=== PATIENT | male | born 1980 | race African-American/Black ===

== ENCOUNTER 2024-03-23 12:04 | Inpatient (IN) | payer OTHER ==
[~2024-03-23] VITALS: Ht 177.8 cm; Wt 154.2 kg
[2024-03-23] VITALS (10 sets, daily range): BP systolic 33–102; BP diastolic 19–78; PULSE 80–109; RESP 17–32; TEMP 36.6; O2SAT 95–100
[~2024-03-23 12:04] MED LIST: ACET-2708 PO; BUPR200T8 MT; CYCL10TA21 PO; DILT30TA37 PO; GABA-1180 PO; LEVO-65 MT; METF-414 MT; METH4TAB95 MT; VITA250012 PO
[2024-03-23 13:51] LABS: BASOPHILS % 0.3 % (0.0-2.0); EOSINOPHILS % 2.7 % (0.0-5.0); HEMATOCRIT. 30.7 % (42.0-52.0); HEMOGLOBIN. 9.3 g/dL (14.0-18.0); LYMPHOCYTES % 15.3 % (20.0-50.0); MEAN PLATELET VOLUME 8.1 fl (7.4-10.4); MONOCYTES % 7.0 % (2.0-8.0); NEUTROPHILS % 74.7 % (40.0-76.0); PLATELET 329 x1000/uL (130-400); RED BLOOD CELL COUNT 4.26 mill/uL (4.7-6.1); RED CELL DISTRIBUTION WIDTH 21.4 % (11.6-14.6)
[2024-03-23 14:00] LABS: INR 1.1
[2024-03-23 14:05] LABS: CREATININE 0.8 mg/dL (0.6-1.3); TROPONIN I HIGH SENSITIVITY 4 ng/L (3.0-53); UREA NITROGEN BLOOD 6 mg/dL (9-23)
[2024-03-23 14:07] LABS: BILIRUBIN DIRECT 0.1 mg/dL (<=3.0); BILIRUBIN TOTAL 0.4 mg/dL (0.1-1.0); PROTEIN TOTAL 8.6 g/dL (6.0-8.3)
[2024-03-23 14:09] LABS: ASPARTATE AMINOTRANSFERASE < 8 IU/L (<34)
[2024-03-23] MEDS: MORPHINE SULFATE 4 MG/ML INJ (FOR IV/IM USE) IV STA (14:21)
[2024-03-23] MEDS: ONDANSETRON HCL 4MG/2ML INJ IV STA (14:26)
[2024-03-23] MEDS: PIPERACILLIN/TAZO 3.375G/50ML 50 ML IV STA (14:33)
[2024-03-23] MEDS: FUROSEMIDE 40MG/4ML VIAL IVP ONE (15:20)
[2024-03-23] MEDS: VANCOMYCIN 1GM/200ML PMX (BAXTER) IV SCH (15:24)
[2024-03-23 16:13] LABS: BG BASE EXCESS 7.3 mmol/L (-2.0-3.0); BG CARBOXYHEMOGLOBIN 1.6 % (0.5-1.5); BG DEOXYHEMOGLOBIN 16.7 % (0.0-5.0); BG FLOW(L/min) 4.00 L/min; BG FRACTION INSPIRED OXYGEN 36; BG HCO3 ACT 36.1 mmol/L (21.0-28.0); BG METHEMOGLOBIN 0.0 % (0.5-1.5); BG OXYGEN SATURATION 83.0 % (94.0-98.0); BG OXYHEMOGLOBIN 81.7 % (94.0-98.0); BG PCO2 77.4 mmHg (35.0-48.0); BG PH 7.287 (7.350-7.450); BG PO2 53.1 mmHg (83.0-108.0); BG SAMPLE SITE RIGHT RADIAL; BG TOTAL HEMOGLOBIN 11.1 g/dL (13.5-17.5); BG VENT MODE MASK - NRB
[2024-03-23] MEDS ORDERED: ONDANSETRON HCL 4MG/2ML INJ IV PRN (17:15)
[2024-03-23] MEDS ORDERED: IPRATROPIUM/ALBUTEROL 0.5-3(2.5)MG/3ML NEB HHN SCH (18:00)
[2024-03-23] MEDS: SUCCINYLCHOLINE CHLORIDE 200MG/10ML IV ONE (19:40)
[2024-03-23] MEDS ORDERED: IPRATROPIUM/ALBUTEROL 0.5-3(2.5)MG/3ML NEB NEB PRN (20:00)
[2024-03-23] MEDS ORDERED: VASOPRESSIN 20 UNIT in SODIUM CHLORIDE 0.9% 99 ML IV PRN (20:30)
[2024-03-23] MEDS ORDERED: PHENYLEPHRINE 50MG/250ML PMX 250 ML IV PRN (20:30)
[2024-03-23] MEDS ORDERED: NOREPINEPHRINE 8MG/250ML PMX 250 ML IV PRN (20:30)
[2024-03-23] MEDS: FUROSEMIDE 40MG/4ML VIAL IVP SCH (20:56)
[2024-03-23] MEDS: PROPOFOL 10MG/ML 100ML 100 ML IV ONE (21:05)
[2024-03-23 21:13] LABS: BG BASE EXCESS -0.5 mmol/L (-2.0-3.0); BG CARBOXYHEMOGLOBIN 1.9 % (0.5-1.5); BG DEOXYHEMOGLOBIN 9.7 % (0.0-5.0); BG FRACTION INSPIRED OXYGEN 100; BG HCO3 ACT 33.0 mmol/L (21.0-28.0); BG METHEMOGLOBIN 0.1 % (0.5-1.5); BG OXYGEN SATURATION 90.1 % (94.0-98.0); BG OXYHEMOGLOBIN 88.3 % (94.0-98.0); BG PCO2 124.6 mmHg (35.0-48.0); BG PEEP (cmH2O) 10.0 cmH2O; BG PH 7.041 (7.350-7.450); BG PO2 74.8 mmHg (83.0-108.0); BG SAMPLE SITE RIGHT RADIAL; BG TIDAL VOLUME(mL) 500.0 mL; BG TOTAL HEMOGLOBIN 11.7 g/dL (13.5-17.5); BG VENT MODE VENT - AC; BG VENT RATE 22.0 set
[2024-03-23 23:24] LABS: BG BASE EXCESS 3.9 mmol/L (-2.0-3.0); BG CARBOXYHEMOGLOBIN 1.2 % (0.5-1.5); BG DEOXYHEMOGLOBIN 6.9 % (0.0-5.0); BG FRACTION INSPIRED OXYGEN 100; BG HCO3 ACT 34.4 mmol/L (21.0-28.0); BG METHEMOGLOBIN 0.1 % (0.5-1.5); BG OXYGEN SATURATION 93.0 % (94.0-98.0); BG OXYHEMOGLOBIN 91.8 % (94.0-98.0); BG PCO2 93.3 mmHg (35.0-48.0); BG PEEP (cmH2O) 5.0 cmH2O; BG PH 7.185 (7.350-7.450); BG PO2 74.9 mmHg (83.0-108.0); BG SAMPLE SITE LEFT RADIAL; BG TIDAL VOLUME(mL) 500.0 mL; BG TOTAL HEMOGLOBIN 11.0 g/dL (13.5-17.5); BG VENT MODE VENT - AC; BG VENT RATE 26.0 set
[2024-03-24] VITALS (79 sets, daily range): BP systolic 68–135; BP diastolic 49–107; PULSE 78–112; RESP 13–33; TEMP 32.1–37.1; O2SAT 95–100
[2024-03-24] MEDS: PROPOFOL 10MG/ML 100ML 100 ML IV SCH (00:06)
[2024-03-24] MEDS: NOREPINEPHRINE 8MG/250ML PMX 250 ML IV PRN (00:06)
[2024-03-24] MEDS: IPRATROPIUM/ALBUTEROL 0.5-3(2.5)MG/3ML NEB NEB SCH (01:48)
[2024-03-24] MEDS: MIDAZOLAM 100MG/100ML PMX 100 ML IV PRN (04:23)
[2024-03-24 06:13] LABS: CREATININE 1.1 mg/dL (0.6-1.3); UREA NITROGEN BLOOD 8 mg/dL (9-23)
[2024-03-24] MEDS: ENOXAPARIN 40MG/0.4ML SYR SUBCUT SCH (09:00)
[2024-03-24 10:36] LABS: BG BASE EXCESS 9.5 mmol/L (-2.0-3.0); BG CARBOXYHEMOGLOBIN 1.2 % (0.5-1.5); BG DEOXYHEMOGLOBIN 1.6 % (0.0-5.0); BG FRACTION INSPIRED OXYGEN 100; BG HCO3 ACT 35.9 mmol/L (21.0-28.0); BG METHEMOGLOBIN 0.3 % (0.5-1.5); BG OXYGEN SATURATION 98.4 % (94.0-98.0); BG OXYHEMOGLOBIN 96.9 % (94.0-98.0); BG PCO2 58.7 mmHg (35.0-48.0); BG PEEP (cmH2O) 5.0 cmH2O; BG PH 7.404 (7.350-7.450); BG PO2 108.6 mmHg (83.0-108.0); BG SAMPLE SITE RIGHT RADIAL; BG TIDAL VOLUME(mL) 500.0 mL; BG TOTAL HEMOGLOBIN 10.6 g/dL (13.5-17.5); BG VENT MODE VENT - AC; BG VENT RATE 26.0 set
[2024-03-24] MEDS: PANTOPRAZOLE SODIUM 40 MG/VIAL IV SCH (11:00)
[2024-03-24] MEDS ORDERED: LIDOCAINE HCL 1% 10 MG/ML 10ML VIAL ONE (13:07)
[2024-03-25] VITALS (94 sets, daily range): BP systolic 111–143; BP diastolic 51–113; PULSE 99–126; RESP 20–38; TEMP 36.7–36.9; O2SAT 90–100
[2024-03-25] MEDS: PROPOFOL 10MG/ML 100ML 100 ML IV PRN (00:15)
[2024-03-25] MEDS ORDERED: DEXTROSE 50% WATER 50ML SYRINGE IV PRN (00:15)
[2024-03-25 07:13] LABS: CREATININE 0.8 mg/dL (0.6-1.3)
[2024-03-25 07:15] LABS: UREA NITROGEN BLOOD 8 mg/dL (9-23)
[2024-03-25 07:26] LABS: BASOPHILS % 0.2 % (0.0-2.0); EOSINOPHILS % 2.1 % (0.0-5.0); HEMATOCRIT. 31.3 % (42.0-52.0); HEMOGLOBIN. 9.7 g/dL (14.0-18.0); LYMPHOCYTES % 11.6 % (20.0-50.0); MEAN PLATELET VOLUME 8.2 fl (7.4-10.4); MONOCYTES % 7.4 % (2.0-8.0); NEUTROPHILS % 78.7 % (40.0-76.0); PLATELET 320 x1000/uL (130-400); RED BLOOD CELL COUNT 4.46 mill/uL (4.7-6.1); RED CELL DISTRIBUTION WIDTH 21.1 % (11.6-14.6)
[2024-03-25] MEDS: BLOOD SUGAR DIAGNOSTIC STRIP TEST SCH (07:36)
[2024-03-25] MEDS: INSULIN LISPRO 100 UNITS/ML SUBCUT SCH (07:36)
[2024-03-25 11:14] LABS: BG BASE EXCESS 13.4 mmol/L (-2.0-3.0); BG CARBOXYHEMOGLOBIN 1.0 % (0.5-1.5); BG DEOXYHEMOGLOBIN 5.2 % (0.0-5.0); BG FRACTION INSPIRED OXYGEN 80; BG HCO3 ACT 39.9 mmol/L (21.0-28.0); BG METHEMOGLOBIN 0.0 % (0.5-1.5); BG OXYGEN SATURATION 94.7 % (94.0-98.0); BG OXYHEMOGLOBIN 93.8 % (94.0-98.0); BG PCO2 61.0 mmHg (35.0-48.0); BG PEEP (cmH2O) 5.0 cmH2O; BG PH 7.433 (7.350-7.450); BG PO2 74.4 mmHg (83.0-108.0); BG SAMPLE SITE RIGHT RADIAL; BG TIDAL VOLUME(mL) 500.0 mL; BG TOTAL HEMOGLOBIN 10.8 g/dL (13.5-17.5); BG VENT MODE VENT - AC; BG VENT RATE 26.0 set
[2024-03-25] MEDS: FENTANYL CITRATE/PF 1,000 MCG in DEXT 5% WATER 80 ML IV PRN (12:12)
[2024-03-26] VITALS (100 sets, daily range): BP systolic 98–144; BP diastolic 54–98; PULSE 101–116; RESP 21–37; TEMP 36.3–36.9; O2SAT 85–100
[2024-03-26] MEDS: PROPOFOL 10MG/ML 100ML 100 ML IV PRN (01:23)
[2024-03-26 06:13] LABS: CREATININE 0.9 mg/dL (0.6-1.3); UREA NITROGEN BLOOD 8 mg/dL (9-23)
[2024-03-26 09:04] LABS: BASOPHILS % 0.5 % (0.0-2.0); EOSINOPHILS % 4.1 % (0.0-5.0); HEMATOCRIT. 34.8 % (42.0-52.0); HEMOGLOBIN. 10.7 g/dL (14.0-18.0); LYMPHOCYTES % 16.1 % (20.0-50.0); MEAN PLATELET VOLUME 8.5 fl (7.4-10.4); MONOCYTES % 10.8 % (2.0-8.0); NEUTROPHILS % 68.5 % (40.0-76.0); PLATELET 314 x1000/uL (130-400); RED BLOOD CELL COUNT 4.89 mill/uL (4.7-6.1); RED CELL DISTRIBUTION WIDTH 21.5 % (11.6-14.6)
[2024-03-26 09:11] LABS: ADD RBC MORPHOLOGY YES
[2024-03-26] MEDS: LIDOCAINE HCL 1% 10 MG/ML 10ML VIAL ONE (09:43)
[2024-03-26 10:49] LABS: BG BASE EXCESS 12.7 mmol/L (-2.0-3.0); BG CARBOXYHEMOGLOBIN 0.9 % (0.5-1.5); BG DEOXYHEMOGLOBIN 6.3 % (0.0-5.0); BG FRACTION INSPIRED OXYGEN 80; BG HCO3 ACT 39.1 mmol/L (21.0-28.0); BG METHEMOGLOBIN 0.3 % (0.5-1.5); BG OXYGEN SATURATION 93.6 % (94.0-98.0); BG OXYHEMOGLOBIN 92.5 % (94.0-98.0); BG PCO2 60.4 mmHg (35.0-48.0); BG PEEP (cmH2O) 5.0 cmH2O; BG PH 7.429 (7.350-7.450); BG PO2 72.8 mmHg (83.0-108.0); BG SAMPLE SITE RIGHT RADIAL; BG TIDAL VOLUME(mL) 500.0 mL; BG TOTAL HEMOGLOBIN 10.9 g/dL (13.5-17.5); BG VENT MODE VENT - AC; BG VENT RATE 26.0 set
[2024-03-26] MEDS: PIPERACILLIN/TAZO 3.375G/50ML 50 ML IV SCH (16:08)
[2024-03-26 18:08] LABS: PLATELET ESTIMATE NORMAL
[2024-03-26] MEDS ORDERED: PIPERACILLIN/TAZO 3.375G/100ML 100 ML IV SCH (22:00)
[2024-03-27] VITALS (92 sets, daily range): BP systolic 106–148; BP diastolic 60–94; PULSE 100–120; RESP 18–30; TEMP 36.4–37.1; O2SAT 85–100
[2024-03-27] MEDS: PROPOFOL 10MG/ML 100ML 100 ML IV PRN (01:00)
[2024-03-27 06:26] LABS: CREATININE 0.9 mg/dL (0.6-1.3); TRIGLYCERIDE 201 mg/dL (0-150)
[2024-03-27 06:27] LABS: UREA NITROGEN BLOOD 11 mg/dL (9-23)
[2024-03-27 09:05] LABS: BASOPHILS % 0.8 % (0.0-2.0); EOSINOPHILS % 2.8 % (0.0-5.0); HEMATOCRIT. 34.1 % (42.0-52.0); HEMOGLOBIN. 10.4 g/dL (14.0-18.0); LYMPHOCYTES % 12.9 % (20.0-50.0); MEAN PLATELET VOLUME 8.3 fl (7.4-10.4); MONOCYTES % 9.0 % (2.0-8.0); NEUTROPHILS % 74.5 % (40.0-76.0); PLATELET 333 x1000/uL (130-400); RED BLOOD CELL COUNT 4.83 mill/uL (4.7-6.1); RED CELL DISTRIBUTION WIDTH 21.7 % (11.6-14.6)
[2024-03-27 09:24] LABS: BG BASE EXCESS 13.1 mmol/L (-2.0-3.0); BG CARBOXYHEMOGLOBIN 1.2 % (0.5-1.5); BG DEOXYHEMOGLOBIN 1.3 % (0.0-5.0); BG FRACTION INSPIRED OXYGEN 80; BG HCO3 ACT 39.3 mmol/L (21.0-28.0); BG METHEMOGLOBIN 0.3 % (0.5-1.5); BG OXYGEN SATURATION 98.7 % (94.0-98.0); BG OXYHEMOGLOBIN 97.2 % (94.0-98.0); BG PCO2 60.5 mmHg (35.0-48.0); BG PEEP (cmH2O) 14.0 cmH2O; BG PH 7.431 (7.350-7.450); BG PO2 119.8 mmHg (83.0-108.0); BG SAMPLE SITE RIGHT RADIAL; BG TIDAL VOLUME(mL) 500.0 mL; BG TOTAL HEMOGLOBIN 10.2 g/dL (13.5-17.5); BG VENT MODE VENT - AC; BG VENT RATE 26.0 set
[2024-03-28] VITALS (100 sets, daily range): BP systolic 98–146; BP diastolic 55–94; PULSE 100–126; RESP 20–32; TEMP 36.8–37.1; O2SAT 85–99
[2024-03-28] MEDS: PROPOFOL 10MG/ML 100ML 100 ML IV PRN ×2 (00:12→22:59)
[2024-03-28 10:36] LABS: BG BASE EXCESS 11.2 mmol/L (-2.0-3.0); BG CARBOXYHEMOGLOBIN 1.0 % (0.5-1.5); BG DEOXYHEMOGLOBIN 13.6 % (0.0-5.0); BG FRACTION INSPIRED OXYGEN 50; BG HCO3 ACT 37.4 mmol/L (21.0-28.0); BG METHEMOGLOBIN 0.3 % (0.5-1.5); BG OXYGEN SATURATION 86.2 % (94.0-98.0); BG OXYHEMOGLOBIN 85.1 % (94.0-98.0); BG PCO2 57.8 mmHg (35.0-48.0); BG PEEP (cmH2O) 5.0 cmH2O; BG PH 7.429 (7.350-7.450); BG PO2 55.1 mmHg (83.0-108.0); BG SAMPLE SITE RIGHT RADIAL; BG TIDAL VOLUME(mL) 500.0 mL; BG TOTAL HEMOGLOBIN 11.5 g/dL (13.5-17.5); BG VENT MODE VENT - AC; BG VENT RATE 26.0 set
[2024-03-28 13:20] LABS: BG BASE EXCESS 14.4 mmol/L (-2.0-3.0); BG CARBOXYHEMOGLOBIN 1.4 % (0.5-1.5); BG DEOXYHEMOGLOBIN 13.3 % (0.0-5.0); BG FRACTION INSPIRED OXYGEN 50; BG HCO3 ACT 41.6 mmol/L (21.0-28.0); BG METHEMOGLOBIN 0.3 % (0.5-1.5); BG OXYGEN SATURATION 86.5 % (94.0-98.0); BG OXYHEMOGLOBIN 85.0 % (94.0-98.0); BG PCO2 66.4 mmHg (35.0-48.0); BG PEEP (cmH2O) 5.0 cmH2O; BG PH 7.415 (7.350-7.450); BG PO2 54.5 mmHg (83.0-108.0); BG SAMPLE SITE RIGHT RADIAL; BG TIDAL VOLUME(mL) 500.0 mL; BG TOTAL HEMOGLOBIN 11.6 g/dL (13.5-17.5); BG TOTAL RESPIRATORY RATE 24 b/min; BG VENT MODE VENT - AC; BG VENT RATE 24.0 set
[2024-03-28 18:10] LABS: BASOPHILS % 0.5 % (0.0-2.0); EOSINOPHILS % 4.1 % (0.0-5.0); HEMATOCRIT. 34.4 % (42.0-52.0); HEMOGLOBIN. 10.4 g/dL (14.0-18.0); LYMPHOCYTES % 12.4 % (20.0-50.0); MEAN PLATELET VOLUME 8.1 fl (7.4-10.4); MONOCYTES % 9.6 % (2.0-8.0); NEUTROPHILS % 73.4 % (40.0-76.0); PLATELET 348 x1000/uL (130-400); RED BLOOD CELL COUNT 4.88 mill/uL (4.7-6.1); RED CELL DISTRIBUTION WIDTH 21.4 % (11.6-14.6)
[2024-03-28 18:22] LABS: CREATININE 1.1 mg/dL (0.6-1.3); UREA NITROGEN BLOOD 14 mg/dL (9-23)
[2024-03-29] VITALS (102 sets, daily range): BP systolic 94–140; BP diastolic 51–80; PULSE 109–126; RESP 16–25; TEMP 37.4–38.6; O2SAT 87–100
[2024-03-29] MEDS: ACETAMINOPHEN 650MG/20.3ML UDC PO PRN (03:48)
[2024-03-29 05:59] LABS: BASOPHILS % 0.4 % (0.0-2.0); EOSINOPHILS % 4.8 % (0.0-5.0); HEMATOCRIT. 34.3 % (42.0-52.0); HEMOGLOBIN. 10.3 g/dL (14.0-18.0); LYMPHOCYTES % 14.1 % (20.0-50.0); MEAN PLATELET VOLUME 8.3 fl (7.4-10.4); MONOCYTES % 12.6 % (2.0-8.0); NEUTROPHILS % 68.1 % (40.0-76.0); PLATELET 323 x1000/uL (130-400); RED BLOOD CELL COUNT 4.85 mill/uL (4.7-6.1); RED CELL DISTRIBUTION WIDTH 20.8 % (11.6-14.6)
[2024-03-29 06:31] LABS: CREATININE 1.1 mg/dL (0.6-1.3)
[2024-03-29 06:32] LABS: TRIGLYCERIDE 210 mg/dL (0-150); UREA NITROGEN BLOOD 17 mg/dL (9-23)
[2024-03-29 09:11] LABS: BG BASE EXCESS 15.9 mmol/L (-2.0-3.0); BG CARBOXYHEMOGLOBIN 1.3 % (0.5-1.5); BG DEOXYHEMOGLOBIN 7.6 % (0.0-5.0); BG FRACTION INSPIRED OXYGEN 50; BG HCO3 ACT 42.3 mmol/L (21.0-28.0); BG METHEMOGLOBIN 0.3 % (0.5-1.5); BG OXYGEN SATURATION 92.3 % (94.0-98.0); BG OXYHEMOGLOBIN 90.8 % (94.0-98.0); BG PCO2 61.2 mmHg (35.0-48.0); BG PEEP (cmH2O) 14.0 cmH2O; BG PH 7.457 (7.350-7.450); BG PO2 65.7 mmHg (83.0-108.0); BG SAMPLE SITE LEFT RADIAL; BG TIDAL VOLUME(mL) 600.0 mL; BG TOTAL HEMOGLOBIN 11.2 g/dL (13.5-17.5); BG TOTAL RESPIRATORY RATE 20 b/min; BG VENT MODE VENT - AC; BG VENT RATE 20.0 set
[2024-03-29] MEDS: KCL 20MEQ/100ML PREMIX 100 ML IV NR (11:24)
[2024-03-29] MEDS: MIDAZOLAM 100MG/100ML PMX 100 ML IV PRN (21:32)
[2024-03-30] VITALS (98 sets, daily range): BP systolic 109–130; BP diastolic 61–79; PULSE 103–125; RESP 16–21; TEMP 37.2–38.2; O2SAT 91–98
[2024-03-30] MEDS: PROPOFOL 10MG/ML 100ML 100 ML IV PRN (00:46)
[2024-03-30 06:15] LABS: CREATININE 1.1 mg/dL (0.6-1.3)
[2024-03-30 06:16] LABS: TRIGLYCERIDE 262 mg/dL (0-150); UREA NITROGEN BLOOD 19 mg/dL (9-23)
[2024-03-30 07:06] LABS: BASOPHILS % 0.5 % (0.0-2.0); EOSINOPHILS % 3.3 % (0.0-5.0); HEMATOCRIT. 33.3 % (42.0-52.0); HEMOGLOBIN. 10.2 g/dL (14.0-18.0); LYMPHOCYTES % 13.7 % (20.0-50.0); MEAN PLATELET VOLUME 8.3 fl (7.4-10.4); MONOCYTES % 9.7 % (2.0-8.0); NEUTROPHILS % 72.8 % (40.0-76.0); PLATELET 300 x1000/uL (130-400); RED BLOOD CELL COUNT 4.70 mill/uL (4.7-6.1); RED CELL DISTRIBUTION WIDTH 21.1 % (11.6-14.6)
[2024-03-30 09:37] LABS: BG BASE EXCESS 14.8 mmol/L (-2.0-3.0); BG CARBOXYHEMOGLOBIN 1.5 % (0.5-1.5); BG DEOXYHEMOGLOBIN 4.6 % (0.0-5.0); BG FRACTION INSPIRED OXYGEN 50; BG HCO3 ACT 40.7 mmol/L (21.0-28.0); BG METHEMOGLOBIN 0.3 % (0.5-1.5); BG OXYGEN SATURATION 95.3 % (94.0-98.0); BG OXYHEMOGLOBIN 93.6 % (94.0-98.0); BG PCO2 57.5 mmHg (35.0-48.0); BG PEEP (cmH2O) 14.0 cmH2O; BG PH 7.468 (7.350-7.450); BG PO2 76.3 mmHg (83.0-108.0); BG SAMPLE SITE RIGHT RADIAL; BG TIDAL VOLUME(mL) 600.0 mL; BG TOTAL HEMOGLOBIN 11.1 g/dL (13.5-17.5); BG VENT MODE VENT - AC; BG VENT RATE 20.0 set
[2024-03-30] MEDS ORDERED: FENTANYL 2500MCG/250ML PMX 250 ML IV ONE (10:15)
[2024-03-30] MEDS: FENTANYL CITRATE/PF 1,000 MCG in DEXT 5% WATER 80 ML IV ONE (10:46)
[2024-03-30] MEDS: KCL 20MEQ/100ML PREMIX 100 ML IV SCH (11:18)
[2024-03-30 13:24] LABS: BG BASE EXCESS 14.5 mmol/L (-2.0-3.0); BG CARBOXYHEMOGLOBIN 0.7 % (0.5-1.5); BG DEOXYHEMOGLOBIN 7.1 % (0.0-5.0); BG FRACTION INSPIRED OXYGEN 50; BG HCO3 ACT 40.9 mmol/L (21.0-28.0); BG METHEMOGLOBIN 0.3 % (0.5-1.5); BG OXYGEN SATURATION 92.8 % (94.0-98.0); BG OXYHEMOGLOBIN 91.9 % (94.0-98.0); BG PCO2 60.3 mmHg (35.0-48.0); BG PEEP (cmH2O) 14.0 cmH2O; BG PH 7.449 (7.350-7.450); BG PIP 20.0 cmH2O; BG PO2 70.0 mmHg (83.0-108.0); BG SAMPLE SITE RIGHT RADIAL; BG TIDAL VOLUME(mL) 600.0 mL; BG TOTAL HEMOGLOBIN 11.2 g/dL (13.5-17.5); BG VENT MODE VENT - AC; BG VENT RATE 18.0 set
[2024-03-30] MEDS: LACTULOSE 20G/30ML UDC PO NR (19:55)
[2024-03-30 22:53] LABS: BG BASE EXCESS 13.2 mmol/L (-2.0-3.0); BG CARBOXYHEMOGLOBIN 1.0 % (0.5-1.5); BG DEOXYHEMOGLOBIN 13.8 % (0.0-5.0); BG FRACTION INSPIRED OXYGEN 50; BG HCO3 ACT 39.9 mmol/L (21.0-28.0); BG METHEMOGLOBIN 0.0 % (0.5-1.5); BG OXYGEN SATURATION 86.1 % (94.0-98.0); BG OXYHEMOGLOBIN 85.2 % (94.0-98.0); BG PCO2 62.0 mmHg (35.0-48.0); BG PEEP (cmH2O) 14.0 cmH2O; BG PH 7.426 (7.350-7.450); BG PO2 55.6 mmHg (83.0-108.0); BG SAMPLE SITE RIGHT RADIAL; BG TIDAL VOLUME(mL) 600.0 mL; BG TOTAL HEMOGLOBIN 11.4 g/dL (13.5-17.5); BG VENT RATE 16.0 set
[2024-03-30] MEDS: BLOOD SUGAR DIAGNOSTIC STRIP TEST SCH (23:33)
[2024-03-30] MEDS: INSULIN LISPRO 100 UNITS/ML SUBCUT SCH (23:34)
[2024-03-31] VITALS (87 sets, daily range): BP systolic 111–141; BP diastolic 64–81; PULSE 106–126; RESP 16–50; TEMP 37.1–38; O2SAT 0–100
[2024-03-31 07:34] LABS: CREATININE 1.1 mg/dL (0.6-1.3); UREA NITROGEN BLOOD 23 mg/dL (9-23)
[2024-03-31 07:37] LABS: BASOPHILS % 0.5 % (0.0-2.0); EOSINOPHILS % 4.3 % (0.0-5.0); HEMATOCRIT. 33.7 % (42.0-52.0); HEMOGLOBIN. 10.1 g/dL (14.0-18.0); LYMPHOCYTES % 11.8 % (20.0-50.0); MEAN PLATELET VOLUME 8.3 fl (7.4-10.4); MONOCYTES % 11.8 % (2.0-8.0); NEUTROPHILS % 71.6 % (40.0-76.0); PLATELET 301 x1000/uL (130-400); RED BLOOD CELL COUNT 4.72 mill/uL (4.7-6.1); RED CELL DISTRIBUTION WIDTH 21.0 % (11.6-14.6)
[2024-03-31 08:45] LABS: BG BASE EXCESS 14.7 mmol/L (-2.0-3.0); BG CARBOXYHEMOGLOBIN 0.5 % (0.5-1.5); BG DEOXYHEMOGLOBIN 2.8 % (0.0-5.0); BG FRACTION INSPIRED OXYGEN 70; BG HCO3 ACT 42.2 mmol/L (21.0-28.0); BG METHEMOGLOBIN 0.1 % (0.5-1.5); BG OXYGEN SATURATION 97.2 % (94.0-98.0); BG OXYHEMOGLOBIN 96.6 % (94.0-98.0); BG PCO2 69.4 mmHg (35.0-48.0); BG PEEP (cmH2O) 14.0 cmH2O; BG PH 7.402 (7.350-7.450); BG PO2 98.8 mmHg (83.0-108.0); BG SAMPLE SITE RIGHT RADIAL; BG TIDAL VOLUME(mL) 600.0 mL; BG TOTAL HEMOGLOBIN 11.4 g/dL (13.5-17.5); BG VENT MODE VENT - AC; BG VENT RATE 16.0 set
[2024-03-31] MEDS ORDERED: PROPOFOL 10MG/ML 100ML 100 ML IV PRN (09:00)
[2024-03-31] MEDS: POTASSIUM CHLORIDE 20MEQ TABLET SR PO SCH (09:05)
[2024-03-31] MEDS: POTASSIUM CHLORIDE 20 MEQ in DEXT 5% WATER 100 ML IV SCH (13:43)
[2024-03-31] MEDS: FENTANYL CITRATE/PF 1,000 MCG in DEXT 5% WATER 80 ML IV PRN (16:16)
[2024-04-01] VITALS (81 sets, daily range): BP systolic 70–122; BP diastolic 45–87; PULSE 115–131; RESP 1–35; TEMP 37.8–39; O2SAT 92–100
[2024-04-01 06:58] LABS: BASOPHILS % 0.2 % (0.0-2.0); EOSINOPHILS % 2.0 % (0.0-5.0); HEMATOCRIT. 33.8 % (42.0-52.0); HEMOGLOBIN. 10.0 g/dL (14.0-18.0); LYMPHOCYTES % 9.1 % (20.0-50.0); MEAN PLATELET VOLUME 8.1 fl (7.4-10.4); MONOCYTES % 12.7 % (2.0-8.0); NEUTROPHILS % 76.0 % (40.0-76.0); PLATELET 290 x1000/uL (130-400); RED BLOOD CELL COUNT 4.67 mill/uL (4.7-6.1); RED CELL DISTRIBUTION WIDTH 21.1 % (11.6-14.6)
[2024-04-01 07:15] LABS: CREATININE 1.1 mg/dL (0.6-1.3)
[2024-04-01 07:16] LABS: UREA NITROGEN BLOOD 29 mg/dL (9-23)
[2024-04-01 09:13] LABS: BG BASE EXCESS 13.0 mmol/L (-2.0-3.0); BG CARBOXYHEMOGLOBIN 0.9 % (0.5-1.5); BG DEOXYHEMOGLOBIN 4.7 % (0.0-5.0); BG FRACTION INSPIRED OXYGEN 50; BG HCO3 ACT 40.4 mmol/L (21.0-28.0); BG METHEMOGLOBIN 0.1 % (0.5-1.5); BG OXYGEN SATURATION 95.3 % (94.0-98.0); BG OXYHEMOGLOBIN 94.3 % (94.0-98.0); BG PCO2 67.1 mmHg (35.0-48.0); BG PEEP (cmH2O) 14.0 cmH2O; BG PH 7.397 (7.350-7.450); BG PO2 79.9 mmHg (83.0-108.0); BG SAMPLE SITE LEFT RADIAL; BG TIDAL VOLUME(mL) 600.0 mL; BG TOTAL HEMOGLOBIN 11.3 g/dL (13.5-17.5); BG VENT MODE VENT - AC; BG VENT RATE 16.0 set
[2024-04-01] MEDS ORDERED: KCL 20MEQ/100ML PREMIX 100 ML IV ONE ×2 (09:45→18:00)
[2024-04-01] MEDS: DEXT 5% WATER 500 ML IV NR (10:22)
[2024-04-01] MEDS: POTASSIUM CHLORIDE 20MEQ in DEXT 5% WATER 100ML IV NR ×2 (11:56→17:35)
[2024-04-01] MEDS: MICAFUNGIN 100 MG in SODIUM CHLORIDE 0.9% 100 ML IV SCH (16:49)
[2024-04-01] MEDS: PIPERACILLIN/TAZO 3.375G/50ML 100 ML IV SCH (19:10)
[2024-04-02] VITALS (93 sets, daily range): BP systolic 84–115; BP diastolic 43–86; PULSE 104–131; RESP 16–25; TEMP 36.9–37.7; O2SAT 82–100
[2024-04-02 05:47] LABS: BASOPHILS % 0.3 % (0.0-2.0); EOSINOPHILS % 4.8 % (0.0-5.0); HEMATOCRIT. 31.6 % (42.0-52.0); HEMOGLOBIN. 9.3 g/dL (14.0-18.0); LYMPHOCYTES % 12.1 % (20.0-50.0); MEAN PLATELET VOLUME 8.5 fl (7.4-10.4); MONOCYTES % 10.9 % (2.0-8.0); NEUTROPHILS % 71.9 % (40.0-76.0); PLATELET 279 x1000/uL (130-400); RED BLOOD CELL COUNT 4.31 mill/uL (4.7-6.1); RED CELL DISTRIBUTION WIDTH 20.7 % (11.6-14.6)
[2024-04-02 06:06] LABS: CREATININE 1.1 mg/dL (0.6-1.3); UREA NITROGEN BLOOD 30 mg/dL (9-23)
[2024-04-02 08:47] LABS: BG BASE EXCESS 11.5 mmol/L (-2.0-3.0); BG CARBOXYHEMOGLOBIN 1.4 % (0.5-1.5); BG DEOXYHEMOGLOBIN 7.9 % (0.0-5.0); BG FRACTION INSPIRED OXYGEN 50; BG HCO3 ACT 38.6 mmol/L (21.0-28.0); BG METHEMOGLOBIN 0.1 % (0.5-1.5); BG OXYGEN SATURATION 92.0 % (94.0-98.0); BG OXYHEMOGLOBIN 90.6 % (94.0-98.0); BG PCO2 64.9 mmHg (35.0-48.0); BG PEEP (cmH2O) 12.0 cmH2O; BG PH 7.392 (7.350-7.450); BG PO2 67.4 mmHg (83.0-108.0); BG SAMPLE SITE RIGHT RADIAL; BG TIDAL VOLUME(mL) 600.0 mL; BG TOTAL HEMOGLOBIN 10.9 g/dL (13.5-17.5); BG VENT MODE VENT - AC; BG VENT RATE 16.0 set
[2024-04-02] MEDS ORDERED: POTASSIUM CHLORIDE 20 MEQ in DEXT 5% WATER 90 ML IV ONE (09:30)
[2024-04-02] MEDS: KCL 20MEQ/100ML PREMIX 100 ML IV NR ×2 (12:15→12:58)
[2024-04-02] MEDS: PHENYLEPHRINE 50MG/250ML PMX 250 ML IV PRN (21:16)
[2024-04-03] VITALS (91 sets, daily range): BP systolic 75–117; BP diastolic 30–84; PULSE 111–129; RESP 14–61; TEMP 38.7–39.2; O2SAT 86–98
[2024-04-03 06:31] LABS: FOLIC ACID (FOLATE) SERUM 10.57 ng/mL (>5.38); VITAMIN B12 SERUM 428 pg/mL (211-911)
[2024-04-03 06:34] LABS: CREATININE 1.1 mg/dL (0.6-1.3); UREA NITROGEN BLOOD 33 mg/dL (9-23)
[2024-04-03 06:41] LABS: PLATELET 306 x1000/uL (130-400); RED BLOOD CELL COUNT 4.51 mill/uL (4.7-6.1); RED CELL DISTRIBUTION WIDTH 21.3 % (11.6-14.6)
[2024-04-03] MEDS: DEXT 5% WATER 500 ML IV NR (08:50)
[2024-04-03] MEDS: DEXTROSE 5% WATER 1,000 ML IV SCH (08:50)
[2024-04-03 09:40] LABS: BG BASE EXCESS 10.4 mmol/L (-2.0-3.0); BG CARBOXYHEMOGLOBIN 1.4 % (0.5-1.5); BG DEOXYHEMOGLOBIN 2.5 % (0.0-5.0); BG FRACTION INSPIRED OXYGEN 80; BG HCO3 ACT 36.9 mmol/L (21.0-28.0); BG METHEMOGLOBIN 0.2 % (0.5-1.5); BG OXYGEN SATURATION 97.5 % (94.0-98.0); BG OXYHEMOGLOBIN 95.9 % (94.0-98.0); BG PCO2 60.2 mmHg (35.0-48.0); BG PEEP (cmH2O) 12.0 cmH2O; BG PH 7.405 (7.350-7.450); BG PO2 100.3 mmHg (83.0-108.0); BG SAMPLE SITE RIGHT RADIAL; BG TIDAL VOLUME(mL) 600.0 mL; BG TOTAL HEMOGLOBIN 10.7 g/dL (13.5-17.5); BG VENT MODE VENT - PRVC; BG VENT RATE 16.0 set
[2024-04-03] MEDS: PROPOFOL 10MG/ML 100ML 100 ML IV PRN (12:24)
[2024-04-03] MEDS: MIDAZOLAM 100MG/100ML PMX 100 ML IV PRN (23:21)
[2024-04-04] VITALS (107 sets, daily range): BP systolic 74–116; BP diastolic 57–84; PULSE 109–126; RESP 16–29; TEMP 37.3–39.2; O2SAT 81–98
[2024-04-04 06:01] LABS: BASOPHILS % 0.4 % (0.0-2.0); EOSINOPHILS % 3.6 % (0.0-5.0); HEMATOCRIT. 30.0 % (42.0-52.0); HEMOGLOBIN. 9.0 g/dL (14.0-18.0); LYMPHOCYTES % 17.2 % (20.0-50.0); MEAN PLATELET VOLUME 8.8 fl (7.4-10.4); MONOCYTES % 9.6 % (2.0-8.0); NEUTROPHILS % 69.2 % (40.0-76.0); PLATELET 270 x1000/uL (130-400); RED BLOOD CELL COUNT 4.05 mill/uL (4.7-6.1); RED CELL DISTRIBUTION WIDTH 21.8 % (11.6-14.6)
[2024-04-04 06:11] LABS: CREATININE 1.3 mg/dL (0.6-1.3); TRIGLYCERIDE 302 mg/dL (0-150); UREA NITROGEN BLOOD 30 mg/dL (9-23)
[2024-04-04 08:56] LABS: BG BASE EXCESS 11.7 mmol/L (-2.0-3.0); BG CARBOXYHEMOGLOBIN 1.0 % (0.5-1.5); BG DEOXYHEMOGLOBIN 3.1 % (0.0-5.0); BG FRACTION INSPIRED OXYGEN 70; BG HCO3 ACT 38.5 mmol/L (21.0-28.0); BG METHEMOGLOBIN 0.2 % (0.5-1.5); BG OXYGEN SATURATION 96.9 % (94.0-98.0); BG OXYHEMOGLOBIN 95.7 % (94.0-98.0); BG PCO2 64.4 mmHg (35.0-48.0); BG PEEP (cmH2O) 12.0 cmH2O; BG PH 7.395 (7.350-7.450); BG PO2 91.5 mmHg (83.0-108.0); BG SAMPLE SITE RIGHT RADIAL; BG TIDAL VOLUME(mL) 600.0 mL; BG TOTAL HEMOGLOBIN 10.2 g/dL (13.5-17.5); BG VENT MODE VENT - PRVC; BG VENT RATE 16.0 set
[2024-04-04] MEDS: FUROSEMIDE 40MG/4ML VIAL IVP SCH (09:09)
[2024-04-04] MEDS: DEXT 5% WATER 500 ML IV ONE (09:09)
[2024-04-04] MEDS: PIPERACILLIN/TAZO 3.375G/50ML 50 ML IV SCH (13:37)
[2024-04-04] MEDS: PROPOFOL 10MG/ML 100ML 100 ML IV SCH (14:50)
[2024-04-05] VITALS (109 sets, daily range): BP systolic 82–119; BP diastolic 62–85; PULSE 95–138; RESP 16–29; TEMP 37.1–39.2; O2SAT 86–97
[2024-04-05 09:03] LABS: BG BASE EXCESS 8.2 mmol/L (-2.0-3.0); BG CARBOXYHEMOGLOBIN 0.7 % (0.5-1.5); BG DEOXYHEMOGLOBIN 7.4 % (0.0-5.0); BG FRACTION INSPIRED OXYGEN 65; BG HCO3 ACT 34.5 mmol/L (21.0-28.0); BG METHEMOGLOBIN 0.1 % (0.5-1.5); BG OXYGEN SATURATION 92.5 % (94.0-98.0); BG OXYHEMOGLOBIN 91.8 % (94.0-98.0); BG PCO2 58.2 mmHg (35.0-48.0); BG PEEP (cmH2O) 12.0 cmH2O; BG PH 7.391 (7.350-7.450); BG PO2 72.6 mmHg (83.0-108.0); BG SAMPLE SITE RIGHT RADIAL; BG TIDAL VOLUME(mL) 600.0 mL; BG TOTAL HEMOGLOBIN 9.9 g/dL (13.5-17.5); BG VENT MODE VENT - PRVC; BG VENT RATE 16.0 set
[2024-04-05 11:40] LABS: PLATELET 257 x1000/uL (130-400); RED BLOOD CELL COUNT 4.31 mill/uL (4.7-6.1); RED CELL DISTRIBUTION WIDTH 21.5 % (11.6-14.6)
[2024-04-05 11:48] LABS: CREATININE 1.1 mg/dL (0.6-1.3); UREA NITROGEN BLOOD 32 mg/dL (9-23)
[2024-04-05 18:28] LABS: INR 1.1
[2024-04-05] MEDS: PROPOFOL 10MG/ML 100ML 100 ML IV PRN (19:16)
[2024-04-06] VITALS (101 sets, daily range): BP systolic 64–122; BP diastolic 47–90; PULSE 10–118; RESP 2–25; TEMP 37.1–37.6; O2SAT 88–98
[2024-04-06 05:50] LABS: BASOPHILS % 0.3 % (0.0-2.0); EOSINOPHILS % 4.2 % (0.0-5.0); HEMATOCRIT. 31.9 % (42.0-52.0); HEMOGLOBIN. 9.3 g/dL (14.0-18.0); LYMPHOCYTES % 14.0 % (20.0-50.0); MEAN PLATELET VOLUME 9.5 fl (7.4-10.4); MONOCYTES % 10.4 % (2.0-8.0); NEUTROPHILS % 71.1 % (40.0-76.0); PLATELET 274 x1000/uL (130-400); RED BLOOD CELL COUNT 4.28 mill/uL (4.7-6.1); RED CELL DISTRIBUTION WIDTH 21.5 % (11.6-14.6)
[2024-04-06 06:31] LABS: CREATININE 1.1 mg/dL (0.6-1.3)
[2024-04-06 06:32] LABS: UREA NITROGEN BLOOD 32 mg/dL (9-23)
[2024-04-06] MEDS: DEXT 5% WATER 500 ML IV NR (08:26)
[2024-04-06] MEDS: MULTIVITAMINS,THER W-MINERALS TABLET PO SCH (08:56)
[2024-04-06 09:07] LABS: BG BASE EXCESS 6.7 mmol/L (-2.0-3.0); BG CARBOXYHEMOGLOBIN 1.1 % (0.5-1.5); BG DEOXYHEMOGLOBIN 7.5 % (0.0-5.0); BG FRACTION INSPIRED OXYGEN 65; BG HCO3 ACT 32.7 mmol/L (21.0-28.0); BG METHEMOGLOBIN 0.1 % (0.5-1.5); BG OXYGEN SATURATION 92.4 % (94.0-98.0); BG OXYHEMOGLOBIN 91.3 % (94.0-98.0); BG PCO2 54.2 mmHg (35.0-48.0); BG PEEP (cmH2O) 10.0 cmH2O; BG PH 7.399 (7.350-7.450); BG PO2 68.6 mmHg (83.0-108.0); BG SAMPLE SITE RIGHT RADIAL; BG TIDAL VOLUME(mL) 600.0 mL; BG TOTAL HEMOGLOBIN 10.7 g/dL (13.5-17.5); BG VENT MODE VENT - AC/PRVC; BG VENT RATE 16.0 set
[2024-04-06] MEDS: OXYMETAZOLINE HCL NASAL SPRAY 15ML BOTHNSTRLS SCH (13:02)
[2024-04-06] MEDS: PROPOFOL 10MG/ML 100ML 100 ML IV PRN (18:55)
[2024-04-06] MEDS ORDERED: FENTANYL 2500MCG/250ML PMX 250 ML IV ONE (19:00)
[2024-04-06] MEDS ORDERED: FENTANYL CITRATE/PF 1,000 MCG in DEXT 5% WATER 80 ML IV PRN (19:00)
[2024-04-06] MEDS ORDERED: OXYMETAZOLINE HCL NASAL SPRAY 15ML BOTHNSTRLS SCH (21:00)
[2024-04-07] VITALS (39 sets, daily range): BP systolic 98–133; BP diastolic 64–98; PULSE 104–136; RESP 17–32; TEMP 37.7–38.3; O2SAT 92–100
[2024-04-07 06:26] LABS: BASOPHILS % 0.4 % (0.0-2.0); EOSINOPHILS % 3.0 % (0.0-5.0); HEMATOCRIT. 30.1 % (42.0-52.0); HEMOGLOBIN. 9.0 g/dL (14.0-18.0); LYMPHOCYTES % 10.8 % (20.0-50.0); MEAN PLATELET VOLUME 9.4 fl (7.4-10.4); MONOCYTES % 9.5 % (2.0-8.0); NEUTROPHILS % 76.3 % (40.0-76.0); PLATELET 286 x1000/uL (130-400); RED BLOOD CELL COUNT 4.08 mill/uL (4.7-6.1); RED CELL DISTRIBUTION WIDTH 21.6 % (11.6-14.6)
[2024-04-07 06:39] LABS: CREATININE 1.1 mg/dL (0.6-1.3); TRIGLYCERIDE 355 mg/dL (0-150); UREA NITROGEN BLOOD 34 mg/dL (9-23)
[2024-04-07] MEDS: DEXTROSE 5% WATER 1,000 ML IV SCH (08:30)
[2024-04-07] MEDS ORDERED: LIDOCAINE HCL/EPINEPHRINE 1%-EPI 1:100,000 20ML VIAL ONE (08:44)
[2024-04-07 09:17] LABS: BG BASE EXCESS 9.9 mmol/L (-2.0-3.0); BG CARBOXYHEMOGLOBIN 0.1 % (0.5-1.5); BG DEOXYHEMOGLOBIN 5.3 % (0.0-5.0); BG FRACTION INSPIRED OXYGEN 80; BG HCO3 ACT 37.2 mmol/L (21.0-28.0); BG METHEMOGLOBIN 0.1 % (0.5-1.5); BG OXYGEN SATURATION 94.7 % (94.0-98.0); BG OXYHEMOGLOBIN 94.5 % (94.0-98.0); BG PCO2 67.1 mmHg (35.0-48.0); BG PEEP (cmH2O) 12.0 cmH2O; BG PH 7.362 (7.350-7.450); BG PO2 80.7 mmHg (83.0-108.0); BG SAMPLE SITE RIGHT RADIAL; BG TIDAL VOLUME(mL) 600.0 mL; BG TOTAL HEMOGLOBIN 10.1 g/dL (13.5-17.5); BG VENT MODE VENT - PRVC; BG VENT RATE 16.0 set
[2024-04-07] MEDS ORDERED: ROCURONIUM BROMIDE 10MG/ML VIAL 5ML IV ONE ×2 (09:26→10:40)
[2024-04-07] MEDS ORDERED: FENTANYL CITRATE/PF 50MCG/ML 2ML VIAL ONE (09:31)
[2024-04-07] MEDS ORDERED: PROPOFOL 200MG/20ML VIAL IV ONE (09:56)
[2024-04-07] MEDS ORDERED: PHENYLEPHRINE 50MG/250ML PMX 250 ML IV ONE (10:11)
[2024-04-07] MEDS ORDERED: PHENYLEPHRINE HCL 10MG/ML 1ML IV ONE (10:12)
[2024-04-07] MEDS ORDERED: PHENYLEPHRINE HCL 1% 30ML NASAL SPRAY ONE (10:14)
[2024-04-07 11:25] LABS: BG BASE EXCESS 6.1 mmol/L (-2.0-3.0); BG CARBOXYHEMOGLOBIN 0.3 % (0.5-1.5); BG DEOXYHEMOGLOBIN 15.9 % (0.0-5.0); BG FRACTION INSPIRED OXYGEN 100; BG HCO3 ACT 33.6 mmol/L (21.0-28.0); BG METHEMOGLOBIN 0.2 % (0.5-1.5); BG OXYGEN SATURATION 84.0 % (94.0-98.0); BG OXYHEMOGLOBIN 83.6 % (94.0-98.0); BG PCO2 65.5 mmHg (35.0-48.0); BG PEEP (cmH2O) 5.0 cmH2O; BG PH 7.328 (7.350-7.450); BG PO2 55.4 mmHg (83.0-108.0); BG SAMPLE SITE ALINE; BG TIDAL VOLUME(mL) 650.0 mL; BG TOTAL HEMOGLOBIN 10.4 g/dL (13.5-17.5); BG VENT RATE 20.0 set
[2024-04-07 12:28] LABS: BG BASE EXCESS 3.8 mmol/L (-2.0-3.0); BG CARBOXYHEMOGLOBIN 0.2 % (0.5-1.5); BG DEOXYHEMOGLOBIN 14.3 % (0.0-5.0); BG FRACTION INSPIRED OXYGEN 100; BG HCO3 ACT 30.9 mmol/L (21.0-28.0); BG METHEMOGLOBIN 0.3 % (0.5-1.5); BG OXYGEN SATURATION 85.6 % (94.0-98.0); BG OXYHEMOGLOBIN 85.2 % (94.0-98.0); BG PCO2 61.0 mmHg (35.0-48.0); BG PEEP (cmH2O) 15.0 cmH2O; BG PH 7.322 (7.350-7.450); BG PO2 59.8 mmHg (83.0-108.0); BG SAMPLE SITE ALINE; BG TIDAL VOLUME(mL) 650.0 mL; BG TOTAL HEMOGLOBIN 9.9 g/dL (13.5-17.5); BG VENT MODE VENT - PRVC; BG VENT RATE 20.0 set
[2024-04-07] MEDS: FUROSEMIDE 40MG/4ML VIAL IVP NR (12:37)
[2024-04-07 17:22] LABS: BG BASE EXCESS 5.0 mmol/L (-2.0-3.0); BG CARBOXYHEMOGLOBIN 0.3 % (0.5-1.5); BG DEOXYHEMOGLOBIN 0.9 % (0.0-5.0); BG FRACTION INSPIRED OXYGEN 100; BG HCO3 ACT 29.9 mmol/L (21.0-28.0); BG METHEMOGLOBIN 0.6 % (0.5-1.5); BG OXYGEN SATURATION 99.1 % (94.0-98.0); BG OXYHEMOGLOBIN 98.2 % (94.0-98.0); BG PCO2 45.7 mmHg (35.0-48.0); BG PEEP (cmH2O) 20.0 cmH2O; BG PH 7.433 (7.350-7.450); BG PO2 151.9 mmHg (83.0-108.0); BG SAMPLE SITE ALINE; BG TIDAL VOLUME(mL) 700.0 mL; BG TOTAL HEMOGLOBIN 9.6 g/dL (13.5-17.5); BG TOTAL RESPIRATORY RATE 20 b/min; BG VENT MODE VENT - AC; BG VENT RATE 20.0 set
[2024-04-07 18:50] LABS: BG BASE EXCESS 5.5 mmol/L (-2.0-3.0); BG CARBOXYHEMOGLOBIN 0.6 % (0.5-1.5); BG DEOXYHEMOGLOBIN 2.1 % (0.0-5.0); BG FRACTION INSPIRED OXYGEN 100; BG HCO3 ACT 31.5 mmol/L (21.0-28.0); BG METHEMOGLOBIN 0.2 % (0.5-1.5); BG OXYGEN SATURATION 97.9 % (94.0-98.0); BG OXYHEMOGLOBIN 97.1 % (94.0-98.0); BG PCO2 53.3 mmHg (35.0-48.0); BG PEEP (cmH2O) 16.0 cmH2O; BG PH 7.390 (7.350-7.450); BG PO2 112.2 mmHg (83.0-108.0); BG SAMPLE SITE ALINE; BG TIDAL VOLUME(mL) 650.0 mL; BG TOTAL HEMOGLOBIN 10.9 g/dL (13.5-17.5); BG VENT MODE VENT - AC; BG VENT RATE 18.0 set
[2024-04-07] MEDS: PROPOFOL 10MG/ML 100ML 100 ML IV PRN (23:43)
[2024-04-08] VITALS (75 sets, daily range): BP systolic 88–126; BP diastolic 58–79; PULSE 88–125; RESP 17–26; TEMP 37.3–38; O2SAT 95–100
[2024-04-08] MEDS: ACETYLCYSTEINE 200MG/ML 20% VIAL 4ML INH SCH (01:03)
[2024-04-08 05:22] LABS: BASOPHILS % 0.6 % (0.0-2.0); EOSINOPHILS % 1.8 % (0.0-5.0); HEMATOCRIT. 28.4 % (42.0-52.0); HEMOGLOBIN. 8.5 g/dL (14.0-18.0); LYMPHOCYTES % 11.4 % (20.0-50.0); MEAN PLATELET VOLUME 9.7 fl (7.4-10.4); MONOCYTES % 9.2 % (2.0-8.0); NEUTROPHILS % 77.0 % (40.0-76.0); PLATELET 282 x1000/uL (130-400); RED BLOOD CELL COUNT 3.89 mill/uL (4.7-6.1); RED CELL DISTRIBUTION WIDTH 21.8 % (11.6-14.6)
[2024-04-08 05:43] LABS: CREATININE 1.2 mg/dL (0.6-1.3); TRIGLYCERIDE 368 mg/dL (0-150)
[2024-04-08 05:45] LABS: UREA NITROGEN BLOOD 39 mg/dL (9-23)
[2024-04-08] MEDS: POTASSIUM CHLORIDE 20MEQ/PACKET NG NR (06:04)
[2024-04-08] MEDS: DEXMEDETOMIDINE 100 ML IV PRN (06:13)
[2024-04-08 09:09] LABS: BG BASE EXCESS 3.7 mmol/L (-2.0-3.0); BG CARBOXYHEMOGLOBIN 0.5 % (0.5-1.5); BG DEOXYHEMOGLOBIN 0.5 % (0.0-5.0); BG FRACTION INSPIRED OXYGEN 100; BG HCO3 ACT 29.7 mmol/L (21.0-28.0); BG METHEMOGLOBIN 0.3 % (0.5-1.5); BG OXYGEN SATURATION 99.5 % (94.0-98.0); BG OXYHEMOGLOBIN 98.7 % (94.0-98.0); BG PCO2 52.5 mmHg (35.0-48.0); BG PEEP (cmH2O) 16.0 cmH2O; BG PH 7.370 (7.350-7.450); BG PO2 145.2 mmHg (83.0-108.0); BG SAMPLE SITE ALINE; BG TIDAL VOLUME(mL) 650.0 mL; BG TOTAL HEMOGLOBIN 9.1 g/dL (13.5-17.5); BG TOTAL RESPIRATORY RATE 18 b/min; BG VENT MODE VENT - AC; BG VENT RATE 18.0 set
[2024-04-08 14:25] LABS: BG BASE EXCESS 3.7 mmol/L (-2.0-3.0); BG CARBOXYHEMOGLOBIN 0.4 % (0.5-1.5); BG DEOXYHEMOGLOBIN 4.0 % (0.0-5.0); BG FRACTION INSPIRED OXYGEN 85; BG HCO3 ACT 28.9 mmol/L (21.0-28.0); BG METHEMOGLOBIN 0.1 % (0.5-1.5); BG OXYGEN SATURATION 96.0 % (94.0-98.0); BG OXYHEMOGLOBIN 95.5 % (94.0-98.0); BG PCO2 46.6 mmHg (35.0-48.0); BG PEEP (cmH2O) 16.0 cmH2O; BG PH 7.410 (7.350-7.450); BG PO2 88.0 mmHg (83.0-108.0); BG SAMPLE SITE ALINE; BG TIDAL VOLUME(mL) 650.0 mL; BG TOTAL HEMOGLOBIN 9.2 g/dL (13.5-17.5); BG TOTAL RESPIRATORY RATE 24 b/min; BG VENT MODE VENT - AC; BG VENT RATE 16.0 set
[2024-04-08] MEDS ORDERED: FENTANYL 2500MCG/250ML PMX 250 ML IV PRN (16:45)
[2024-04-08] MEDS: MIDAZOLAM 100MG/100ML PMX 100 ML IV PRN (18:37)
[2024-04-09] VITALS (67 sets, daily range): BP systolic 89–129; BP diastolic 59–91; PULSE 98–134; RESP 17–29; TEMP 37.1–39.3; O2SAT 94–99
[2024-04-09 05:37] LABS: BASOPHILS % 0.3 % (0.0-2.0); EOSINOPHILS % 3.2 % (0.0-5.0); HEMATOCRIT. 28.8 % (42.0-52.0); HEMOGLOBIN. 8.5 g/dL (14.0-18.0); LYMPHOCYTES % 11.3 % (20.0-50.0); MEAN PLATELET VOLUME 9.5 fl (7.4-10.4); MONOCYTES % 8.0 % (2.0-8.0); NEUTROPHILS % 77.2 % (40.0-76.0); PLATELET 314 x1000/uL (130-400); RED BLOOD CELL COUNT 3.87 mill/uL (4.7-6.1); RED CELL DISTRIBUTION WIDTH 22.1 % (11.6-14.6)
[2024-04-09 05:51] LABS: CREATININE 1.1 mg/dL (0.6-1.3); UREA NITROGEN BLOOD 39 mg/dL (9-23)
[2024-04-09 08:26] LABS: BG BASE EXCESS 5.1 mmol/L (-2.0-3.0); BG CARBOXYHEMOGLOBIN 0.5 % (0.5-1.5); BG DEOXYHEMOGLOBIN 2.4 % (0.0-5.0); BG FRACTION INSPIRED OXYGEN 65; BG HCO3 ACT 30.6 mmol/L (21.0-28.0); BG METHEMOGLOBIN 0.3 % (0.5-1.5); BG OXYGEN SATURATION 97.6 % (94.0-98.0); BG OXYHEMOGLOBIN 96.8 % (94.0-98.0); BG PCO2 50.5 mmHg (35.0-48.0); BG PEEP (cmH2O) 16.0 cmH2O; BG PH 7.401 (7.350-7.450); BG PO2 99.1 mmHg (83.0-108.0); BG SAMPLE SITE ALINE; BG TIDAL VOLUME(mL) 650.0 mL; BG TOTAL HEMOGLOBIN 9.1 g/dL (13.5-17.5); BG VENT MODE VENT - AC; BG VENT RATE 16.0 set
[2024-04-10] VITALS (97 sets, daily range): BP systolic 68–119; BP diastolic 46–94; PULSE 97–126; RESP 16–30; TEMP 37.4–39.9; O2SAT 93–100
[2024-04-10 05:56] LABS: BASOPHILS % 0.5 % (0.0-2.0); EOSINOPHILS % 1.2 % (0.0-5.0); HEMATOCRIT. 28.0 % (42.0-52.0); HEMOGLOBIN. 8.2 g/dL (14.0-18.0); LYMPHOCYTES % 12.4 % (20.0-50.0); MEAN PLATELET VOLUME 9.5 fl (7.4-10.4); MONOCYTES % 10.6 % (2.0-8.0); NEUTROPHILS % 75.3 % (40.0-76.0); PLATELET 320 x1000/uL (130-400); RED BLOOD CELL COUNT 3.75 mill/uL (4.7-6.1); RED CELL DISTRIBUTION WIDTH 21.8 % (11.6-14.6)
[2024-04-10 06:00] LABS: CREATININE 1.4 mg/dL (0.6-1.3)
[2024-04-10 06:01] LABS: UREA NITROGEN BLOOD 45 mg/dL (9-23)
[2024-04-10] MEDS ORDERED: DEXTROSE 5% WATER 1,000 ML IV SCH (08:45)
[2024-04-10 10:14] LABS: BG BASE EXCESS 5.5 mmol/L (-2.0-3.0); BG CARBOXYHEMOGLOBIN 0.3 % (0.5-1.5); BG DEOXYHEMOGLOBIN 2.6 % (0.0-5.0); BG FRACTION INSPIRED OXYGEN 85; BG HCO3 ACT 29.8 mmol/L (21.0-28.0); BG METHEMOGLOBIN 0.3 % (0.5-1.5); BG OXYGEN SATURATION 97.4 % (94.0-98.0); BG OXYHEMOGLOBIN 96.8 % (94.0-98.0); BG PCO2 42.5 mmHg (35.0-48.0); BG PEEP (cmH2O) 16.0 cmH2O; BG PH 7.464 (7.350-7.450); BG PO2 94.4 mmHg (83.0-108.0); BG SAMPLE SITE ALINE; BG TIDAL VOLUME(mL) 650.0 mL; BG TOTAL HEMOGLOBIN 10.5 g/dL (13.5-17.5); BG VENT MODE VENT - AC; BG VENT RATE 16.0 set
[2024-04-10 14:16] LABS: BG BASE EXCESS 6.7 mmol/L (-2.0-3.0); BG CARBOXYHEMOGLOBIN 0.3 % (0.5-1.5); BG DEOXYHEMOGLOBIN 3.0 % (0.0-5.0); BG FRACTION INSPIRED OXYGEN 75; BG HCO3 ACT 31.6 mmol/L (21.0-28.0); BG METHEMOGLOBIN 0.4 % (0.5-1.5); BG OXYGEN SATURATION 97.0 % (94.0-98.0); BG OXYHEMOGLOBIN 96.3 % (94.0-98.0); BG PCO2 47.2 mmHg (35.0-48.0); BG PEEP (cmH2O) 16.0 cmH2O; BG PH 7.444 (7.350-7.450); BG PO2 92.7 mmHg (83.0-108.0); BG SAMPLE SITE ALINE; BG TIDAL VOLUME(mL) 600.0 mL; BG TOTAL HEMOGLOBIN 10.1 g/dL (13.5-17.5); BG VENT MODE VENT - AC; BG VENT RATE 16.0 set
[2024-04-10] MEDS: ACETAMINOPHEN 650MG/20.3ML UDC PO PRN (14:20)
[2024-04-10 17:14] LABS: INFLUENZA TYPE A Presumptive Negative (Pres. Neg.)
[2024-04-10 17:15] LABS: INFLUENZA TYPE B Presumptive Negative (Pres. Neg.)
[2024-04-10 20:31] LABS: CREATININE 1.5 mg/dL (0.6-1.3); UREA NITROGEN BLOOD 54 mg/dL (9-23)
[2024-04-11] VITALS (93 sets, daily range): BP systolic 65–114; BP diastolic 52–102; PULSE 104–153; RESP 20–35; TEMP 37.5–39.8; O2SAT 91–98
[2024-04-11 05:43] LABS: UREA NITROGEN BLOOD 66.0 mg/dL (9-23)
[2024-04-11 05:53] LABS: CREATININE 2.0 mg/dL (0.6-1.3)
[2024-04-11] MEDS: SODIUM CHLORIDE 0.45% 1,000 ML IV SCH (07:45)
[2024-04-11] MEDS: FAMOTIDINE 20MG/2ML VIAL IV SCH (09:11)
[2024-04-11 09:44] LABS: BG BASE EXCESS 3.8 mmol/L (-2.0-3.0); BG CARBOXYHEMOGLOBIN 0.3 % (0.5-1.5); BG DEOXYHEMOGLOBIN 4.0 % (0.0-5.0); BG FRACTION INSPIRED OXYGEN 70; BG HCO3 ACT 28.1 mmol/L (21.0-28.0); BG METHEMOGLOBIN 0.3 % (0.5-1.5); BG OXYGEN SATURATION 96.0 % (94.0-98.0); BG OXYHEMOGLOBIN 95.4 % (94.0-98.0); BG PCO2 41.2 mmHg (35.0-48.0); BG PEEP (cmH2O) 16.0 cmH2O; BG PH 7.452 (7.350-7.450); BG PO2 83.0 mmHg (83.0-108.0); BG SAMPLE SITE LEFT RADIAL; BG TIDAL VOLUME(mL) 600.0 mL; BG TOTAL HEMOGLOBIN 9.4 g/dL (13.5-17.5); BG TOTAL RESPIRATORY RATE 32 b/min; BG VENT MODE VENT - AC; BG VENT RATE 10.0 set
[2024-04-11] MEDS ORDERED: MEROPENEM 1,000 MG in SODIUM CHLORIDE 0.9% 100 ML IV SCH (14:45)
[2024-04-11 14:47] LABS: BG BASE EXCESS 2.8 mmol/L (-2.0-3.0); BG CARBOXYHEMOGLOBIN 0.2 % (0.5-1.5); BG DEOXYHEMOGLOBIN 3.7 % (0.0-5.0); BG FRACTION INSPIRED OXYGEN 60; BG HCO3 ACT 28.0 mmol/L (21.0-28.0); BG METHEMOGLOBIN 0.4 % (0.5-1.5); BG OXYGEN SATURATION 96.3 % (94.0-98.0); BG OXYHEMOGLOBIN 95.7 % (94.0-98.0); BG PCO2 46.5 mmHg (35.0-48.0); BG PEEP (cmH2O) 16.0 cmH2O; BG PH 7.398 (7.350-7.450); BG PO2 88.5 mmHg (83.0-108.0); BG SAMPLE SITE ALINE; BG TIDAL VOLUME(mL) 550.0 mL; BG TOTAL HEMOGLOBIN 9.6 g/dL (13.5-17.5); BG TOTAL RESPIRATORY RATE 27 b/min; BG VENT MODE VENT - AC; BG VENT RATE 10.0 set
[2024-04-11] MEDS: DEXTROSE 5% WATER 1,000 ML IV SCH (14:54)
[2024-04-11] MEDS: VANCOMYCIN 1GM/200ML PMX (BAXTER) IV SCH (16:00)
[2024-04-11] MEDS: MEROPENEM 1G/100ML IV SCH (18:06)
[2024-04-11] MEDS: IPRATROPIUM BROMIDE (0.02%) 0.5MG/2.5ML NEB HHN SCH (21:00)
[2024-04-12] VITALS (94 sets, daily range): BP systolic 61–118; BP diastolic 30–74; PULSE 103–129; RESP 19–35; TEMP 37.8–39.5; O2SAT 91–100
[2024-04-12] MEDS: VANCOMYCIN 1.25GM PMX (XELLIA) 250 ML IV SCH (01:26)
[2024-04-12] MEDS: MEROPENEM 1GM/50ML DUPLEX 50 ML IV SCH (01:26)
[2024-04-12 06:04] LABS: BASOPHILS % 0.7 % (0.0-2.0); EOSINOPHILS % 2.1 % (0.0-5.0); HEMATOCRIT. 26.6 % (42.0-52.0); HEMOGLOBIN. 7.8 g/dL (14.0-18.0); LYMPHOCYTES % 17.7 % (20.0-50.0); MEAN PLATELET VOLUME 10.0 fl (7.4-10.4); MONOCYTES % 10.1 % (2.0-8.0); NEUTROPHILS % 69.4 % (40.0-76.0); PLATELET 354 x1000/uL (130-400); RED BLOOD CELL COUNT 3.53 mill/uL (4.7-6.1); RED CELL DISTRIBUTION WIDTH 22.4 % (11.6-14.6)
[2024-04-12 06:23] LABS: UREA NITROGEN BLOOD 91.0 mg/dL (9-23)
[2024-04-12 06:46] LABS: CREATININE 3.6 mg/dL (0.6-1.3)
[2024-04-12] MEDS: ENOXAPARIN 40MG/0.4ML SYR SUBCUT SCH (08:31)
[2024-04-12] MEDS: MIDODRINE HCL 5MG TABLET PO SCH (08:32)
[2024-04-12 08:39] LABS: BG BASE EXCESS 2.0 mmol/L (-2.0-3.0); BG CARBOXYHEMOGLOBIN 0.9 % (0.5-1.5); BG DEOXYHEMOGLOBIN 4.8 % (0.0-5.0); BG FRACTION INSPIRED OXYGEN 50; BG HCO3 ACT 28.3 mmol/L (21.0-28.0); BG METHEMOGLOBIN 0.5 % (0.5-1.5); BG OXYGEN SATURATION 95.1 % (94.0-98.0); BG OXYHEMOGLOBIN 93.8 % (94.0-98.0); BG PCO2 53.2 mmHg (35.0-48.0); BG PEEP (cmH2O) 16.0 cmH2O; BG PH 7.343 (7.350-7.450); BG PO2 80.8 mmHg (83.0-108.0); BG SAMPLE SITE RIGHT RADIAL; BG TIDAL VOLUME(mL) 550.0 mL; BG TOTAL HEMOGLOBIN 8.8 g/dL (13.5-17.5); BG VENT MODE VENT - AC; BG VENT RATE 10.0 set
[2024-04-12] MEDS: PHENYLEPHRINE 100 MG in DEXT 5% WATER 240 ML IV PRN (12:17)
[2024-04-12] MEDS: SODIUM CHLORIDE 0.45% 500 ML IV ONE (13:07)
[2024-04-12 15:43] LABS: BG BASE EXCESS -0.2 mmol/L (-2.0-3.0); BG CARBOXYHEMOGLOBIN 0.8 % (0.5-1.5); BG DEOXYHEMOGLOBIN 10.7 % (0.0-5.0); BG FRACTION INSPIRED OXYGEN 40; BG HCO3 ACT 25.8 mmol/L (21.0-28.0); BG METHEMOGLOBIN 0.7 % (0.5-1.5); BG OXYGEN SATURATION 89.1 % (94.0-98.0); BG OXYHEMOGLOBIN 87.8 % (94.0-98.0); BG PCO2 48.9 mmHg (35.0-48.0); BG PEEP (cmH2O) 16.0 cmH2O; BG PH 7.341 (7.350-7.450); BG PO2 62.3 mmHg (83.0-108.0); BG SAMPLE SITE ALINE; BG TIDAL VOLUME(mL) 550.0 mL; BG TOTAL HEMOGLOBIN 9.4 g/dL (13.5-17.5); BG VENT MODE VENT - AC; BG VENT RATE 10.0 set
[2024-04-12] MEDS ORDERED: MEROPENEM 1GM/50ML DUPLEX 50 ML IV SCH (16:00)
[2024-04-12] MEDS: LINEZOLID 600 MG PREMIX 300 ML IV SCH (18:44)
[2024-04-13] VITALS (76 sets, daily range): BP systolic 85–139; BP diastolic 50–97; PULSE 107–124; RESP 19–36; TEMP 36.8–37.8; O2SAT 90–100
[2024-04-13] MEDS: SODIUM CHLORIDE 3% FOR INH 4ML NEB INH SCH (00:50)
[2024-04-13] MEDS: METOCLOPRAMIDE HCL 10MG/2ML VIAL IV SCH (01:33)
[2024-04-13 09:36] LABS: BG BASE EXCESS -1.4 mmol/L (-2.0-3.0); BG CARBOXYHEMOGLOBIN 0.5 % (0.5-1.5); BG DEOXYHEMOGLOBIN 1.3 % (0.0-5.0); BG FRACTION INSPIRED OXYGEN 100; BG HCO3 ACT 26.2 mmol/L (21.0-28.0); BG METHEMOGLOBIN 0.7 % (0.5-1.5); BG OXYGEN SATURATION 98.7 % (94.0-98.0); BG OXYHEMOGLOBIN 97.5 % (94.0-98.0); BG PCO2 60.8 mmHg (35.0-48.0); BG PEEP (cmH2O) 16.0 cmH2O; BG PH 7.252 (7.350-7.450); BG PO2 131.1 mmHg (83.0-108.0); BG SAMPLE SITE RIGHT RADIAL; BG TIDAL VOLUME(mL) 600.0 mL; BG TOTAL HEMOGLOBIN 8.8 g/dL (13.5-17.5); BG VENT MODE VENT - AC; BG VENT RATE 10.0 set
[2024-04-13 09:57] LABS: CREATININE 4.6 mg/dL (0.6-1.3)
[2024-04-13 09:59] LABS: BASOPHILS % 0.6 % (0.0-2.0); EOSINOPHILS % 3.3 % (0.0-5.0); HEMATOCRIT. 27.8 % (42.0-52.0); HEMOGLOBIN. 8.0 g/dL (14.0-18.0); LYMPHOCYTES % 14.4 % (20.0-50.0); MEAN PLATELET VOLUME 10.6 fl (7.4-10.4); MONOCYTES % 7.8 % (2.0-8.0); NEUTROPHILS % 73.9 % (40.0-76.0); PLATELET 295 x1000/uL (130-400); RED BLOOD CELL COUNT 3.69 mill/uL (4.7-6.1); RED CELL DISTRIBUTION WIDTH 22.3 % (11.6-14.6)
[2024-04-13 10:03] LABS: UREA NITROGEN BLOOD 108.0 mg/dL (9-23)
[2024-04-13 10:16] LABS: ADD RBC MORPHOLOGY NO
[2024-04-13] MEDS: LACTULOSE 20G/30ML UDC PO NR (14:34)
[2024-04-14] VITALS (98 sets, daily range): BP systolic 87–120; BP diastolic 50–73; PULSE 109–121; RESP 18–39; TEMP 36.5–37.4; O2SAT 92–100
[2024-04-14 06:03] LABS: BASOPHILS % 0.3 % (0.0-2.0); EOSINOPHILS % 4.7 % (0.0-5.0); HEMATOCRIT. 25.4 % (42.0-52.0); HEMOGLOBIN. 7.5 g/dL (14.0-18.0); LYMPHOCYTES % 8.7 % (20.0-50.0); MEAN PLATELET VOLUME 9.8 fl (7.4-10.4); MONOCYTES % 8.2 % (2.0-8.0); NEUTROPHILS % 78.1 % (40.0-76.0); PLATELET 259 x1000/uL (130-400); RED BLOOD CELL COUNT 3.48 mill/uL (4.7-6.1); RED CELL DISTRIBUTION WIDTH 22.4 % (11.6-14.6)
[2024-04-14 06:15] LABS: CREATININE 4.4 mg/dL (0.6-1.3)
[2024-04-14 06:18] LABS: UREA NITROGEN BLOOD 111.0 mg/dL (9-23)
[2024-04-14] MEDS: SODIUM CHLORIDE 0.45% 1,000 ML IV SCH (08:07)
[2024-04-14 09:31] LABS: BG BASE EXCESS -3.9 mmol/L (-2.0-3.0); BG CARBOXYHEMOGLOBIN 0.1 % (0.5-1.5); BG DEOXYHEMOGLOBIN 0.7 % (0.0-5.0); BG FRACTION INSPIRED OXYGEN 70; BG HCO3 ACT 21.9 mmol/L (21.0-28.0); BG METHEMOGLOBIN 0.9 % (0.5-1.5); BG OXYGEN SATURATION 99.3 % (94.0-98.0); BG OXYHEMOGLOBIN 98.3 % (94.0-98.0); BG PCO2 43.4 mmHg (35.0-48.0); BG PEEP (cmH2O) 16.0 cmH2O; BG PH 7.321 (7.350-7.450); BG PO2 167.7 mmHg (83.0-108.0); BG SAMPLE SITE ALINE; BG TIDAL VOLUME(mL) 625.0 mL; BG TOTAL HEMOGLOBIN 8.2 g/dL (13.5-17.5); BG VENT MODE VENT - AC; BG VENT RATE 10.0 set
[2024-04-14] MEDS: MIDODRINE HCL 5MG TABLET PO SCH (12:21)
[2024-04-14] MEDS ORDERED: HYDROXYZINE 25MG TABLET PO PRN (13:45)
[2024-04-14 17:21] LABS: BG BASE EXCESS -3.7 mmol/L (-2.0-3.0); BG CARBOXYHEMOGLOBIN 0.4 % (0.5-1.5); BG DEOXYHEMOGLOBIN 12.3 % (0.0-5.0); BG FRACTION INSPIRED OXYGEN 60; BG HCO3 ACT 22.2 mmol/L (21.0-28.0); BG METHEMOGLOBIN 0.7 % (0.5-1.5); BG OXYGEN SATURATION 87.6 % (94.0-98.0); BG OXYHEMOGLOBIN 86.6 % (94.0-98.0); BG PCO2 44.3 mmHg (35.0-48.0); BG PEEP (cmH2O) 16.0 cmH2O; BG PH 7.318 (7.350-7.450); BG PO2 61.2 mmHg (83.0-108.0); BG SAMPLE SITE ALINE; BG TIDAL VOLUME(mL) 625.0 mL; BG TOTAL HEMOGLOBIN 8.2 g/dL (13.5-17.5); BG VENT MODE VENT - AC; BG VENT RATE 10.0 set
[2024-04-14] MEDS: DOCUSATE SODIUM SUGAR FREE 100MG/10ML UDC NG SCH (20:50)
[2024-04-15] VITALS (103 sets, daily range): BP systolic 80–143; BP diastolic 48–108; PULSE 105–134; RESP 20–42; TEMP 36.7–38; O2SAT 92–97
[2024-04-15 06:10] LABS: BASOPHILS % 0.5 % (0.0-2.0); EOSINOPHILS % 5.3 % (0.0-5.0); HEMATOCRIT. 23.7 % (42.0-52.0); HEMOGLOBIN. 7.3 g/dL (14.0-18.0); LYMPHOCYTES % 7.7 % (20.0-50.0); MEAN PLATELET VOLUME 10.5 fl (7.4-10.4); MONOCYTES % 7.7 % (2.0-8.0); NEUTROPHILS % 78.8 % (40.0-76.0); PLATELET 243 x1000/uL (130-400); RED BLOOD CELL COUNT 3.24 mill/uL (4.7-6.1); RED CELL DISTRIBUTION WIDTH 22.0 % (11.6-14.6)
[2024-04-15 06:26] LABS: CREATININE 3.5 mg/dL (0.6-1.3)
[2024-04-15 06:28] LABS: PHOSPHORUS 6.8 mg/dL (2.5-4.9)
[2024-04-15 06:46] LABS: UREA NITROGEN BLOOD 112 mg/dL (9-23)
[2024-04-15 09:51] LABS: BG BASE EXCESS -3.7 mmol/L (-2.0-3.0); BG CARBOXYHEMOGLOBIN 0.2 % (0.5-1.5); BG DEOXYHEMOGLOBIN 1.5 % (0.0-5.0); BG FRACTION INSPIRED OXYGEN 70; BG HCO3 ACT 21.8 mmol/L (21.0-28.0); BG METHEMOGLOBIN 0.6 % (0.5-1.5); BG OXYGEN SATURATION 98.5 % (94.0-98.0); BG OXYHEMOGLOBIN 97.7 % (94.0-98.0); BG PCO2 41.3 mmHg (35.0-48.0); BG PEEP (cmH2O) 16.0 cmH2O; BG PH 7.340 (7.350-7.450); BG PO2 133.8 mmHg (83.0-108.0); BG SAMPLE SITE ALINE; BG TIDAL VOLUME(mL) 625.0 mL; BG TOTAL HEMOGLOBIN 9.7 g/dL (13.5-17.5); BG VENT MODE VENT - APRV; BG VENT RATE 10.0 set
[2024-04-16] VITALS (97 sets, daily range): BP systolic 102–129; BP diastolic 64–82; PULSE 97–133; RESP 22–35; TEMP 36.6–37.9; O2SAT 91–98
[2024-04-16] MEDS: MIDAZOLAM HCL 2 MG/2 ML VIAL IV NR (05:20)
[2024-04-16 05:44] LABS: BASOPHILS % 0.5 % (0.0-2.0); EOSINOPHILS % 4.7 % (0.0-5.0); HEMATOCRIT. 24.7 % (42.0-52.0); HEMOGLOBIN. 7.6 g/dL (14.0-18.0); LYMPHOCYTES % 8.9 % (20.0-50.0); MEAN PLATELET VOLUME 10.7 fl (7.4-10.4); MONOCYTES % 9.7 % (2.0-8.0); NEUTROPHILS % 76.2 % (40.0-76.0); PLATELET 256 x1000/uL (130-400); RED BLOOD CELL COUNT 3.37 mill/uL (4.7-6.1); RED CELL DISTRIBUTION WIDTH 21.8 % (11.6-14.6)
[2024-04-16 06:09] LABS: CREATININE 2.6 mg/dL (0.6-1.3)
[2024-04-16 06:36] LABS: UREA NITROGEN BLOOD 111.0 mg/dL (9-23)
[2024-04-16 09:41] LABS: BG BASE EXCESS -1.3 mmol/L (-2.0-3.0); BG CARBOXYHEMOGLOBIN 0.6 % (0.5-1.5); BG DEOXYHEMOGLOBIN 0.3 % (0.0-5.0); BG FRACTION INSPIRED OXYGEN 100; BG HCO3 ACT 24.1 mmol/L (21.0-28.0); BG METHEMOGLOBIN 0.8 % (0.5-1.5); BG OXYGEN SATURATION 99.7 % (94.0-98.0); BG OXYHEMOGLOBIN 98.3 % (94.0-98.0); BG PCO2 43.9 mmHg (35.0-48.0); BG PEEP (cmH2O) 16.0 cmH2O; BG PH 7.358 (7.350-7.450); BG PO2 352.2 mmHg (83.0-108.0); BG SAMPLE SITE ALINE; BG TIDAL VOLUME(mL) 325.0 mL; BG TOTAL HEMOGLOBIN 7.3 g/dL (13.5-17.5); BG VENT MODE VENT - AC; BG VENT RATE 10.0 set
[2024-04-16] MEDS: POTASSIUM CHLORIDE 20MEQ/PACKET PO NR (09:52)
[2024-04-17] VITALS (104 sets, daily range): PULSE 92–110; RESP 14–32; TEMP 36.7–37.5; O2SAT 89–99
[2024-04-17 06:25] LABS: PLATELET 254 x1000/uL (130-400); RED BLOOD CELL COUNT 3.20 mill/uL (4.7-6.1); RED CELL DISTRIBUTION WIDTH 22.2 % (11.6-14.6)
[2024-04-17 06:42] LABS: UREA NITROGEN BLOOD 93 mg/dL (9-23)
[2024-04-17 06:46] LABS: CREATININE 1.4 mg/dL (0.6-1.3)
[2024-04-17] MEDS: KCL 20MEQ/100ML PREMIX 100 ML IV SCH (08:43)
[2024-04-17 09:58] LABS: BG BASE EXCESS 2.1 mmol/L (-2.0-3.0); BG CARBOXYHEMOGLOBIN 1.1 % (0.5-1.5); BG DEOXYHEMOGLOBIN 0.8 % (0.0-5.0); BG FRACTION INSPIRED OXYGEN 60; BG HCO3 ACT 27.3 mmol/L (21.0-28.0); BG METHEMOGLOBIN 0.7 % (0.5-1.5); BG OXYGEN SATURATION 99.2 % (94.0-98.0); BG OXYHEMOGLOBIN 97.4 % (94.0-98.0); BG PCO2 46.2 mmHg (35.0-48.0); BG PEEP (cmH2O) 16.0 cmH2O; BG PH 7.390 (7.350-7.450); BG PO2 145.3 mmHg (83.0-108.0); BG SAMPLE SITE ALINE; BG TIDAL VOLUME(mL) 625.0 mL; BG TOTAL HEMOGLOBIN 8.2 g/dL (13.5-17.5); BG VENT MODE VENT - AC; BG VENT RATE 10.0 set
[2024-04-18] VITALS (85 sets, daily range): PULSE 10–115; RESP 20–33; TEMP 36.8–37.2; O2SAT 93–99
[2024-04-18 06:02] LABS: BASOPHILS % 0.6 % (0.0-2.0); EOSINOPHILS % 6.4 % (0.0-5.0); HEMATOCRIT. 24.2 % (42.0-52.0); HEMOGLOBIN. 7.3 g/dL (14.0-18.0); LYMPHOCYTES % 10.7 % (20.0-50.0); MEAN PLATELET VOLUME 9.7 fl (7.4-10.4); MONOCYTES % 8.3 % (2.0-8.0); NEUTROPHILS % 74.0 % (40.0-76.0); PLATELET 288 x1000/uL (130-400); RED BLOOD CELL COUNT 3.26 mill/uL (4.7-6.1); RED CELL DISTRIBUTION WIDTH 22.2 % (11.6-14.6)
[2024-04-18 06:23] LABS: CREATININE 1.1 mg/dL (0.6-1.3); UREA NITROGEN BLOOD 91 mg/dL (9-23)
[2024-04-18 06:25] LABS: PHOSPHORUS 2.4 mg/dL (2.5-4.9)
[2024-04-18] MEDS: POTASSIUM PHOSPHATE 20 MMOL in DEXT 5% WATER 243.3333 ML IV NR (11:18)
[2024-04-19] VITALS (99 sets, daily range): PULSE 102–125; RESP 19–35; TEMP 36.8–38.6; O2SAT 91–100
[2024-04-19 06:20] LABS: BASOPHILS % 0.3 % (0.0-2.0); EOSINOPHILS % 4.2 % (0.0-5.0); HEMATOCRIT. 24.5 % (42.0-52.0); HEMOGLOBIN. 7.4 g/dL (14.0-18.0); LYMPHOCYTES % 12.2 % (20.0-50.0); MEAN PLATELET VOLUME 9.5 fl (7.4-10.4); MONOCYTES % 8.5 % (2.0-8.0); NEUTROPHILS % 74.8 % (40.0-76.0); PLATELET 342 x1000/uL (130-400); RED BLOOD CELL COUNT 3.31 mill/uL (4.7-6.1); RED CELL DISTRIBUTION WIDTH 22.0 % (11.6-14.6)
[2024-04-19 06:38] LABS: CREATININE 0.8 mg/dL (0.6-1.3); UREA NITROGEN BLOOD 67 mg/dL (9-23)
[2024-04-19] MEDS: POTASSIUM CHLORIDE 20MEQ/PACKET PO NR (08:10)
[2024-04-19] MEDS ORDERED: SODIUM CHLORIDE 0.9% 1,000 ML IV SCH (09:00)
[2024-04-19] MEDS: SODIUM CHLORIDE 0.45% 1,000 ML IV SCH (09:16)
[2024-04-19 10:51] LABS: BG BASE EXCESS 4.0 mmol/L (-2.0-3.0); BG CARBOXYHEMOGLOBIN 0.6 % (0.5-1.5); BG DEOXYHEMOGLOBIN 5.3 % (0.0-5.0); BG FRACTION INSPIRED OXYGEN 40; BG HCO3 ACT 27.5 mmol/L (21.0-28.0); BG METHEMOGLOBIN 0.3 % (0.5-1.5); BG OXYGEN SATURATION 94.7 % (94.0-98.0); BG OXYHEMOGLOBIN 93.8 % (94.0-98.0); BG PCO2 36.1 mmHg (35.0-48.0); BG PEEP (cmH2O) 12.0 cmH2O; BG PH 7.499 (7.350-7.450); BG PO2 73.8 mmHg (83.0-108.0); BG SAMPLE SITE ALINE; BG TIDAL VOLUME(mL) 625.0 mL; BG TOTAL HEMOGLOBIN 7.6 g/dL (13.5-17.5); BG VENT MODE VENT - AC; BG VENT RATE 10.0 set
[2024-04-19] MEDS: DEXT 5% WATER 500 ML IV ONE (11:17)
[2024-04-19] MEDS ORDERED: CEFEPIME 1GM IN DEXT 5% 50ML IV SCH (14:00)
[2024-04-19] MEDS: CEFEPIME 2GM/50ML DUPLEX 50 ML IV SCH (14:55)
[2024-04-19] MEDS: METRONIDAZOLE 500 MG PREMIX 100 ML IV SCH (14:56)
[2024-04-19] MEDS: ACETAMINOPHEN 1000MG/100ML 100 ML IV NR (18:10)
[2024-04-19] MEDS: ACETAMINOPHEN 1000MG/100ML 100 ML IV SCH (23:19)
[2024-04-20] VITALS (59 sets, daily range): BP systolic 108–128; BP diastolic 73–79; PULSE 101–131; RESP 10–31; TEMP 37.3–37.7; O2SAT 94–100
[2024-04-20 05:33] LABS: BASOPHILS % 0.3 % (0.0-2.0); EOSINOPHILS % 5.2 % (0.0-5.0); HEMATOCRIT. 24.2 % (42.0-52.0); HEMOGLOBIN. 7.2 g/dL (14.0-18.0); LYMPHOCYTES % 16.8 % (20.0-50.0); MEAN PLATELET VOLUME 9.1 fl (7.4-10.4); MONOCYTES % 7.4 % (2.0-8.0); NEUTROPHILS % 70.3 % (40.0-76.0); PLATELET 356 x1000/uL (130-400); RED BLOOD CELL COUNT 3.18 mill/uL (4.7-6.1); RED CELL DISTRIBUTION WIDTH 23.2 % (11.6-14.6)
[2024-04-20 05:52] LABS: CREATININE 0.9 mg/dL (0.6-1.3); UREA NITROGEN BLOOD 51 mg/dL (9-23)
[2024-04-20 05:55] LABS: PHOSPHORUS 2.8 mg/dL (2.5-4.9)
[2024-04-20 05:58] LABS: ADD RBC MORPHOLOGY YES
[2024-04-20] MEDS: DEXTROSE 5% WATER 1,000 ML IV SCH (08:45)
[2024-04-20 09:32] LABS: PLATELET ESTIMATE NORMAL
[2024-04-20] MEDS: DEXMEDETOMIDINE 100 ML IV PRN (21:13)
[2024-04-21] VITALS (87 sets, daily range): BP systolic 85–115; BP diastolic 58–73; PULSE 86–120; RESP 15–43; TEMP 37.2–37.5; O2SAT 95–100
[2024-04-21 06:05] LABS: CREATININE 0.9 mg/dL (0.6-1.3); UREA NITROGEN BLOOD 42 mg/dL (9-23)
[2024-04-21 07:25] LABS: BASOPHILS % 0.3 % (0.0-2.0); EOSINOPHILS % 4.7 % (0.0-5.0); HEMATOCRIT. 25.5 % (42.0-52.0); HEMOGLOBIN. 7.7 g/dL (14.0-18.0); LYMPHOCYTES % 15.6 % (20.0-50.0); MEAN PLATELET VOLUME 8.9 fl (7.4-10.4); MONOCYTES % 7.6 % (2.0-8.0); NEUTROPHILS % 71.8 % (40.0-76.0); PLATELET 306 x1000/uL (130-400); RED BLOOD CELL COUNT 3.31 mill/uL (4.7-6.1); RED CELL DISTRIBUTION WIDTH 23.4 % (11.6-14.6)
[2024-04-21] MEDS ORDERED: DEXTROSE 5% WATER 1,000 ML IV SCH (09:00)
[2024-04-21] MEDS: DIAZEPAM 5 MG/ML 2ML SYR IV PRN (11:23)
[2024-04-21] MEDS ORDERED: NALOXONE HCL 0.4MG/ML VIAL IV PRN (16:00)
[2024-04-21] MEDS: MORPHINE SULFATE 2 MG/ML INJ (NOT FOR IM USE) IV PRN (16:06)
[2024-04-21] MEDS: DEXMEDETOMIDINE 100 ML IV PRN (22:30)
[2024-04-22] VITALS (63 sets, daily range): PULSE 79–97; RESP 18–39; TEMP 36.7–37; O2SAT 92–100
[2024-04-22 06:17] LABS: BASOPHILS % 0.5 % (0.0-2.0); EOSINOPHILS % 4.9 % (0.0-5.0); HEMATOCRIT. 25.2 % (42.0-52.0); HEMOGLOBIN. 7.5 g/dL (14.0-18.0); LYMPHOCYTES % 19.0 % (20.0-50.0); MEAN PLATELET VOLUME 9.0 fl (7.4-10.4); MONOCYTES % 5.0 % (2.0-8.0); NEUTROPHILS % 70.6 % (40.0-76.0); PLATELET 346 x1000/uL (130-400); RED BLOOD CELL COUNT 3.26 mill/uL (4.7-6.1); RED CELL DISTRIBUTION WIDTH 23.9 % (11.6-14.6)
[2024-04-22 06:32] LABS: CREATININE 0.8 mg/dL (0.6-1.3); UREA NITROGEN BLOOD 46 mg/dL (9-23)
[2024-04-22 06:34] LABS: PHOSPHORUS 3.7 mg/dL (2.5-4.9)
[2024-04-22] MEDS: DEXTROSE 5% WATER 1,000 ML IV SCH (08:15)
[2024-04-22] MEDS: DESMOPRESSIN ACETATE IVPB 1 MCG in SODIUM CHLORIDE 0.9% 50 ML IV SCH (15:00)
[2024-04-22 15:18] LABS: BG BASE EXCESS 3.1 mmol/L (-2.0-3.0); BG CARBOXYHEMOGLOBIN 1.1 % (0.5-1.5); BG DEOXYHEMOGLOBIN 5.4 % (0.0-5.0); BG FRACTION INSPIRED OXYGEN 40; BG HCO3 ACT 27.7 mmol/L (21.0-28.0); BG METHEMOGLOBIN 0.3 % (0.5-1.5); BG OXYGEN SATURATION 94.5 % (94.0-98.0); BG OXYHEMOGLOBIN 93.2 % (94.0-98.0); BG PCO2 42.4 mmHg (35.0-48.0); BG PEEP (cmH2O) 12.0 cmH2O; BG PH 7.433 (7.350-7.450); BG PO2 77.2 mmHg (83.0-108.0); BG SAMPLE SITE ALINE; BG TIDAL VOLUME(mL) 600.0 mL; BG TOTAL HEMOGLOBIN 8.4 g/dL (13.5-17.5); BG VENT MODE VENT - SIMV; BG VENT RATE 10.0 set
[2024-04-23] VITALS (72 sets, daily range): PULSE 64–86; RESP 13–34; TEMP 36.7–36.9; O2SAT 98–100
[2024-04-23 05:28] LABS: CREATININE 0.7 mg/dL (0.6-1.3); UREA NITROGEN BLOOD 38 mg/dL (9-23)
[2024-04-23] MEDS: ENOXAPARIN 40MG/0.4ML SYR SUBCUT SCH (21:50)
[2024-04-24] VITALS (61 sets, daily range): PULSE 75–132; RESP 15–36; TEMP 36.6–37.1; O2SAT 96–100
[2024-04-24 05:14] LABS: BASOPHILS % 0.3 % (0.0-2.0); EOSINOPHILS % 4.8 % (0.0-5.0); HEMATOCRIT. 23.7 % (42.0-52.0); HEMOGLOBIN. 7.1 g/dL (14.0-18.0); LYMPHOCYTES % 12.3 % (20.0-50.0); MEAN PLATELET VOLUME 8.6 fl (7.4-10.4); MONOCYTES % 5.5 % (2.0-8.0); NEUTROPHILS % 77.1 % (40.0-76.0); PLATELET 263 x1000/uL (130-400); RED BLOOD CELL COUNT 3.12 mill/uL (4.7-6.1); RED CELL DISTRIBUTION WIDTH 23.5 % (11.6-14.6)
[2024-04-24 05:44] LABS: CREATININE 0.5 mg/dL (0.6-1.3); UREA NITROGEN BLOOD 28 mg/dL (9-23)
[2024-04-24] MEDS: POTASSIUM CHLORIDE 20MEQ/PACKET NG NR (09:33)
[2024-04-24] MEDS: METOLAZONE 2.5MG TABLET PO SCH (09:38)
[2024-04-24 10:10] LABS: BG BASE EXCESS 3.8 mmol/L (-2.0-3.0); BG CARBOXYHEMOGLOBIN 1.7 % (0.5-1.5); BG DEOXYHEMOGLOBIN 4.1 % (0.0-5.0); BG FRACTION INSPIRED OXYGEN 40; BG HCO3 ACT 28.7 mmol/L (21.0-28.0); BG METHEMOGLOBIN 0.4 % (0.5-1.5); BG OXYGEN SATURATION 95.8 % (94.0-98.0); BG OXYHEMOGLOBIN 93.8 % (94.0-98.0); BG PCO2 45.2 mmHg (35.0-48.0); BG PEEP (cmH2O) 10.0 cmH2O; BG PH 7.420 (7.350-7.450); BG PO2 81.6 mmHg (83.0-108.0); BG SAMPLE SITE RIGHT RADIAL; BG TIDAL VOLUME(mL) 600.0 mL; BG TOTAL HEMOGLOBIN 7.8 g/dL (13.5-17.5); BG VENT MODE VENT - AC; BG VENT RATE 10.0 set
[2024-04-24 15:17] LABS: SODIUM URINE RANDOM 11 mEq/L
[2024-04-24 15:58] LABS: OSMOLALITY URINE 197 mOsm/kg (500-850)
[2024-04-25] VITALS (94 sets, daily range): PULSE 112–132; RESP 13–28; TEMP 36.6–37.7; O2SAT 97–100
[2024-04-25 05:48] LABS: BASOPHILS % 0.3 % (0.0-2.0); EOSINOPHILS % 4.6 % (0.0-5.0); HEMATOCRIT. 24.6 % (42.0-52.0); HEMOGLOBIN. 7.3 g/dL (14.0-18.0); LYMPHOCYTES % 15.5 % (20.0-50.0); MEAN PLATELET VOLUME 8.9 fl (7.4-10.4); MONOCYTES % 6.5 % (2.0-8.0); NEUTROPHILS % 73.1 % (40.0-76.0); PLATELET 216 x1000/uL (130-400); RED BLOOD CELL COUNT 3.20 mill/uL (4.7-6.1); RED CELL DISTRIBUTION WIDTH 24.6 % (11.6-14.6)
[2024-04-25 06:04] LABS: CREATININE 0.6 mg/dL (0.6-1.3)
[2024-04-25 06:05] LABS: UREA NITROGEN BLOOD 20 mg/dL (9-23)
[2024-04-25] MEDS: KCL 20MEQ/100ML PREMIX 100 ML IV SCH (09:10)
[2024-04-26] VITALS (86 sets, daily range): BP systolic 100–136; BP diastolic 60–80; PULSE 110–134; RESP 15–42; TEMP 36.5–38.3364; O2SAT 89–100
[2024-04-26] MEDS: TRAMADOL 50MG TABLET PO PRN (00:15)
[2024-04-26 07:02] LABS: CREATININE 0.6 mg/dL (0.6-1.3); UREA NITROGEN BLOOD 16 mg/dL (9-23)
[2024-04-26 07:27] LABS: BASOPHILS % 0.3 % (0.0-2.0); EOSINOPHILS % 4.8 % (0.0-5.0); HEMATOCRIT. 23.0 % (42.0-52.0); LYMPHOCYTES % 14.3 % (20.0-50.0); MEAN PLATELET VOLUME 9.2 fl (7.4-10.4); MONOCYTES % 7.8 % (2.0-8.0); NEUTROPHILS % 72.8 % (40.0-76.0); PLATELET 196 x1000/uL (130-400); RED BLOOD CELL COUNT 3.01 mill/uL (4.7-6.1); RED CELL DISTRIBUTION WIDTH 24.5 % (11.6-14.6)
[2024-04-26 07:47] LABS: HEMOGLOBIN. 6.9 g/dL (14.0-18.0)
[2024-04-26] MEDS: KCL 20MEQ/100ML PREMIX 100 ML IV SCH (09:34)
[2024-04-26] MEDS: CHLORHEXIDINE GLUCONATE 4% EXTERNAL USE TOP SCH (12:54)
[2024-04-26] MEDS: MAGNESIUM 2 G PREMIX 50 ML IV NR (12:54)
[2024-04-26] MEDS ORDERED: MAGNESIUM 4 G PREMIX 100 ML IV ONE (13:15)
[2024-04-26] MEDS ORDERED: NALOXONE HCL 0.4MG/ML VIAL IV PRN (17:45)
[2024-04-26] MEDS: HYDROCODONE/ACETAMINOPHEN 10/325MG TABLET PO PRN (18:10)
[2024-04-26 23:44] LABS: PLATELET 202 x1000/uL (130-400); RED BLOOD CELL COUNT 3.11 mill/uL (4.7-6.1); RED CELL DISTRIBUTION WIDTH 25.0 % (11.6-14.6)
[2024-04-27] VITALS (53 sets, daily range): BP systolic 98–136; BP diastolic 51–82; PULSE 118–141; RESP 27–35; TEMP 36.9–39.1; O2SAT 89–99
[2024-04-27 00:04] LABS: CREATININE 0.6 mg/dL (0.6-1.3); UREA NITROGEN BLOOD 15 mg/dL (9-23)
[2024-04-27 09:36] LABS: BG BASE EXCESS 4.4 mmol/L (-2.0-3.0); BG CARBOXYHEMOGLOBIN 1.4 % (0.5-1.5); BG DEOXYHEMOGLOBIN 7.0 % (0.0-5.0); BG FRACTION INSPIRED OXYGEN 60; BG HCO3 ACT 28.0 mmol/L (21.0-28.0); BG METHEMOGLOBIN 0.3 % (0.5-1.5); BG OXYGEN SATURATION 92.9 % (94.0-98.0); BG OXYHEMOGLOBIN 91.3 % (94.0-98.0); BG PCO2 37.9 mmHg (35.0-48.0); BG PEEP (cmH2O) 8.0 cmH2O; BG PH 7.487 (7.350-7.450); BG PO2 64.1 mmHg (83.0-108.0); BG SAMPLE SITE RIGHT RADIAL; BG TIDAL VOLUME(mL) 600.0 mL; BG TOTAL HEMOGLOBIN 8.4 g/dL (13.5-17.5); BG TOTAL RESPIRATORY RATE 32 b/min; BG VENT MODE VENT - AC; BG VENT RATE 10.0 set
[2024-04-27] MEDS: KCL 20MEQ/100ML PREMIX 100 ML IV SCH (11:08)
[2024-04-27 13:44] LABS: CREATININE 0.7 mg/dL (0.6-1.3); UREA NITROGEN BLOOD 14 mg/dL (9-23)
[2024-04-27 16:46] LABS: CLARITY URINE CLOUDY (CLEAR); COLOR URINE ORANGE (YELLOW); GLUCOSE URINE NEGATIVE (NEGATIVE); KETONES URINE NEGATIVE (NEGATIVE); LEUKOCYTE ESTERASE URINE 2+ (NEGATIVE); NITRITE URINE NEGATIVE (NEGATIVE); OCCULT BLOOD URINE 3+ (NEGATIVE); PH URINE 7.0 (4.5-8.0); PROTEIN URINE 3+ (NEGATIVE); SPECIFIC GRAVITY URINE 1.015 (1.005-1.030); UROBILINOGEN URINE 2.0 E.U./dL (0.2-1.0)
[2024-04-27 16:59] LABS: BACTERIA URINE 1+; RBC URINE TNTC /hpf (0-2); SQUAMOUS EPITHELIAL CELL URINE 1+ /lpf (RARE/1+)
[2024-04-27] MEDS: WATER IV SCH (18:43)
[2024-04-27] MEDS: VANCOMYCIN 1G PREMIX 200 ML IV NR (18:43)
[2024-04-27] MEDS: DEXT 5% IV SCH (18:43)
[2024-04-27] MEDS: POLYMYXIN B SULFATE IV SCH (18:43)
[2024-04-27] MEDS: AMPICILLIN SOD/SULBACTAM NA 9 G in SODIUM CHLORIDE 0.9% 200 ML IV SCH (21:22)
[2024-04-27] MEDS: MAGNESIUM 4 G PREMIX 100 ML IV NR (21:22)
[2024-04-28] VITALS (50 sets, daily range): BP systolic 92–149; BP diastolic 48–87; PULSE 110–151; RESP 25–35; TEMP 38.7–40; O2SAT 94–100
[2024-04-28] MEDS: IPRATROPIUM BROMIDE (0.02%) 0.5MG/2.5ML NEB HHN SCH (00:23)
[2024-04-28 06:43] LABS: CREATININE 0.7 mg/dL (0.6-1.3); UREA NITROGEN BLOOD 21 mg/dL (9-23)
[2024-04-28 06:45] LABS: PHOSPHORUS 2.6 mg/dL (2.5-4.9)
[2024-04-28 06:46] LABS: PLATELET 164 x1000/uL (130-400); RED BLOOD CELL COUNT 2.97 mill/uL (4.7-6.1); RED CELL DISTRIBUTION WIDTH 25.1 % (11.6-14.6)
[2024-04-28] MEDS: DILTIAZEM HCL 30MG TABLET PO SCH (07:19)
[2024-04-28] MEDS: DILTIAZEM HCL 30MG TABLET PO NR (09:38)
[2024-04-28] MEDS: COLISTIMETHATE SODIUM 75MG/3ML NEB SOLN NEB SCH (09:42)
[2024-04-28] MEDS: ACETAMINOPHEN 1000MG/100ML 100 ML IV SCH ×2 (12:45→18:32)
[2024-04-28] MEDS: DILTIAZEM HCL 60MG TABLET PO SCH (14:18)
[2024-04-28] MEDS ORDERED: KETOROLAC 30MG/ML VIAL IV PRN (15:15)
[2024-04-28] MEDS: SODIUM CHLORIDE 0.9% 1,000 ML IV ONE (18:29)
[2024-04-28] MEDS ORDERED: TRAMADOL 50MG TABLET PO PRN (21:00)
[2024-04-28] MEDS: AZITHROMYCIN 500MG/250ML 250 ML IV SCH (23:05)
[2024-04-29] VITALS (92 sets, daily range): BP systolic 85–159; BP diastolic 47–137; PULSE 119–143; RESP 17–35; TEMP 37.2–39.7; O2SAT 88–100
[2024-04-29 06:12] LABS: CREATININE 1.0 mg/dL (0.6-1.3); UREA NITROGEN BLOOD 32 mg/dL (9-23)
[2024-04-29 06:18] LABS: BASOPHILS % 0.4 % (0.0-2.0); EOSINOPHILS % 4.0 % (0.0-5.0); HEMATOCRIT. 24.5 % (42.0-52.0); HEMOGLOBIN. 7.6 g/dL (14.0-18.0); LYMPHOCYTES % 17.9 % (20.0-50.0); MEAN PLATELET VOLUME 9.7 fl (7.4-10.4); MONOCYTES % 8.3 % (2.0-8.0); NEUTROPHILS % 69.4 % (40.0-76.0); PLATELET 182 x1000/uL (130-400); RED BLOOD CELL COUNT 3.17 mill/uL (4.7-6.1); RED CELL DISTRIBUTION WIDTH 25.7 % (11.6-14.6)
[2024-04-29] MEDS: POTASSIUM CHLORIDE 20MEQ/PACKET PO NR (08:52)
[2024-04-29] MEDS: AZITHROMYCIN 500MG/250ML 250 ML IV SCH (13:09)
[2024-04-30] VITALS (101 sets, daily range): BP systolic 81–146; BP diastolic 41–131; PULSE 110–128; RESP 13–45; TEMP 37.8–38.4; O2SAT 89–100
[2024-04-30 06:19] LABS: BASOPHILS % 0.3 % (0.0-2.0); EOSINOPHILS % 10.3 % (0.0-5.0); LYMPHOCYTES % 21.9 % (20.0-50.0); MEAN PLATELET VOLUME 9.6 fl (7.4-10.4); MONOCYTES % 7.8 % (2.0-8.0); NEUTROPHILS % 59.7 % (40.0-76.0); PLATELET 169 x1000/uL (130-400); RED BLOOD CELL COUNT 2.64 mill/uL (4.7-6.1); RED CELL DISTRIBUTION WIDTH 25.6 % (11.6-14.6)
[2024-04-30 06:37] LABS: CREATININE 0.9 mg/dL (0.6-1.3); UREA NITROGEN BLOOD 41 mg/dL (9-23)
[2024-04-30 06:39] LABS: PHOSPHORUS 3.5 mg/dL (2.5-4.9)
[2024-04-30 06:43] LABS: HEMOGLOBIN. 6.3 g/dL (14.0-18.0)
[2024-04-30 06:44] LABS: ADD RBC MORPHOLOGY YES; HEMATOCRIT. 20.9 % (42.0-52.0)
[2024-04-30] MEDS: POTASSIUM CHLORIDE 20MEQ/PACKET PO NR (07:11)
[2024-04-30 12:30] LABS: PLATELET ESTIMATE NORMAL
[2024-04-30] MEDS: DIPHENHYDRAMINE 50MG/ML VIAL IV NR (13:41)
[2024-04-30] MEDS ORDERED: ACETAMINOPHEN 1000MG/100ML 100 ML IV NR (14:00)
[2024-04-30] MEDS: ACETAMINOPHEN 1000MG/100ML 100 ML IV NR (14:19)
[2024-04-30] MEDS: FUROSEMIDE 40MG/4ML VIAL IVP NR (17:34)
[2024-04-30 21:17] LABS: BASOPHILS % 0.4 % (0.0-2.0); EOSINOPHILS % 11.3 % (0.0-5.0); HEMATOCRIT. 23.6 % (42.0-52.0); HEMOGLOBIN. 7.3 g/dL (14.0-18.0); LYMPHOCYTES % 26.4 % (20.0-50.0); MEAN PLATELET VOLUME 9.3 fl (7.4-10.4); MONOCYTES % 8.8 % (2.0-8.0); NEUTROPHILS % 53.1 % (40.0-76.0); PLATELET 177 x1000/uL (130-400); RED BLOOD CELL COUNT 3.03 mill/uL (4.7-6.1); RED CELL DISTRIBUTION WIDTH 25.1 % (11.6-14.6)
[2024-04-30] MEDS: POLYETHYLENE GLYCOL 3350 (17GM) 1 DOSE PACK PO SCH (21:39)
[2024-05-01] VITALS (107 sets, daily range): BP systolic 92–154; BP diastolic 32–104; PULSE 104–120; RESP 12–28; TEMP 36.8–38.11416; O2SAT 88–100
[2024-05-01 06:53] LABS: BASOPHILS % 0.3 % (0.0-2.0); EOSINOPHILS % 11.1 % (0.0-5.0); HEMATOCRIT. 22.5 % (42.0-52.0); LYMPHOCYTES % 25.7 % (20.0-50.0); MEAN PLATELET VOLUME 9.7 fl (7.4-10.4); MONOCYTES % 8.8 % (2.0-8.0); NEUTROPHILS % 54.1 % (40.0-76.0); PLATELET 186 x1000/uL (130-400); RED BLOOD CELL COUNT 2.87 mill/uL (4.7-6.1); RED CELL DISTRIBUTION WIDTH 25.0 % (11.6-14.6)
[2024-05-01 07:16] LABS: CREATININE 0.8 mg/dL (0.6-1.3); UREA NITROGEN BLOOD 37 mg/dL (9-23)
[2024-05-01 07:18] LABS: PHOSPHORUS 3.5 mg/dL (2.5-4.9)
[2024-05-01] MEDS: POTASSIUM CHLORIDE 20MEQ/PACKET PO NR ×2 (07:45→09:22)
[2024-05-01 07:55] LABS: HEMOGLOBIN. 6.9 g/dL (14.0-18.0)
[2024-05-01] MEDS: DIPHENHYDRAMINE 50MG/ML VIAL IV NR (09:21)
[2024-05-01] MEDS: ACETAMINOPHEN 1000MG/100ML 100 ML IV NR (09:22)
[2024-05-01 16:00] LABS: BASOPHILS % 0.3 % (0.0-2.0); EOSINOPHILS % 10.2 % (0.0-5.0); HEMATOCRIT. 25.4 % (42.0-52.0); HEMOGLOBIN. 7.7 g/dL (14.0-18.0); LYMPHOCYTES % 25.0 % (20.0-50.0); MEAN PLATELET VOLUME 9.5 fl (7.4-10.4); MONOCYTES % 9.0 % (2.0-8.0); NEUTROPHILS % 55.5 % (40.0-76.0); PLATELET 190 x1000/uL (130-400); RED BLOOD CELL COUNT 3.20 mill/uL (4.7-6.1); RED CELL DISTRIBUTION WIDTH 24.7 % (11.6-14.6)
[2024-05-01] MEDS ORDERED: SENNOSIDES/DOCUSATE SOD 8.6/50MG TABLET PO PRN (21:00)
[2024-05-02] VITALS (93 sets, daily range): BP systolic 86–158; BP diastolic 59–111; PULSE 100–111; RESP 14–29; TEMP 36.5–37.2; O2SAT 90–98
[2024-05-02 09:24] LABS: CREATININE 0.6 mg/dL (0.6-1.3)
[2024-05-02 09:25] LABS: UREA NITROGEN BLOOD 25 mg/dL (9-23)
[2024-05-02 09:28] LABS: BASOPHILS % 0.2 % (0.0-2.0); EOSINOPHILS % 9.2 % (0.0-5.0); HEMATOCRIT. 25.9 % (42.0-52.0); HEMOGLOBIN. 7.9 g/dL (14.0-18.0); LYMPHOCYTES % 19.5 % (20.0-50.0); MEAN PLATELET VOLUME 9.2 fl (7.4-10.4); MONOCYTES % 7.9 % (2.0-8.0); NEUTROPHILS % 63.2 % (40.0-76.0); PLATELET 218 x1000/uL (130-400); RED BLOOD CELL COUNT 3.24 mill/uL (4.7-6.1); RED CELL DISTRIBUTION WIDTH 24.6 % (11.6-14.6)
[2024-05-02] MEDS: IPRATROPIUM BROMIDE (0.02%) 0.5MG/2.5ML NEB HHN PRN (17:22)
[2024-05-03] VITALS (100 sets, daily range): BP systolic 106–161; BP diastolic 44–103; PULSE 106–131; RESP 16–34; TEMP 36.4–37.1; O2SAT 92–100
[2024-05-03 05:56] LABS: CREATININE 0.5 mg/dL (0.6-1.3)
[2024-05-03 05:57] LABS: UREA NITROGEN BLOOD 20 mg/dL (9-23)
[2024-05-03 05:58] LABS: BASOPHILS % 0.1 % (0.0-2.0); EOSINOPHILS % 8.8 % (0.0-5.0); HEMATOCRIT. 27.0 % (42.0-52.0); HEMOGLOBIN. 8.2 g/dL (14.0-18.0); LYMPHOCYTES % 20.7 % (20.0-50.0); MEAN PLATELET VOLUME 9.2 fl (7.4-10.4); MONOCYTES % 7.7 % (2.0-8.0); NEUTROPHILS % 62.7 % (40.0-76.0); PLATELET 258 x1000/uL (130-400); RED BLOOD CELL COUNT 3.32 mill/uL (4.7-6.1); RED CELL DISTRIBUTION WIDTH 25.2 % (11.6-14.6)
[2024-05-03] MEDS: DEXTROSE 5% WATER 1,000 ML IV SCH (09:48)
[2024-05-03] MEDS: BUDESONIDE 0.5MG/2ML NEB HHN SCH (12:33)
[2024-05-03] MEDS: IPRATROPIUM BROMIDE (0.02%) 0.5MG/2.5ML NEB HHN SCH (16:55)
[2024-05-04] VITALS (89 sets, daily range): BP systolic 98–161; BP diastolic 51–128; PULSE 109–129; RESP 15–33; TEMP 36.6–37.2; O2SAT 78–100
[2024-05-04 05:16] LABS: BASOPHILS % 0.2 % (0.0-2.0); EOSINOPHILS % 7.1 % (0.0-5.0); HEMATOCRIT. 25.4 % (42.0-52.0); HEMOGLOBIN. 7.7 g/dL (14.0-18.0); LYMPHOCYTES % 19.1 % (20.0-50.0); MEAN PLATELET VOLUME 8.9 fl (7.4-10.4); MONOCYTES % 7.9 % (2.0-8.0); NEUTROPHILS % 65.7 % (40.0-76.0); PLATELET 337 x1000/uL (130-400); RED BLOOD CELL COUNT 3.09 mill/uL (4.7-6.1); RED CELL DISTRIBUTION WIDTH 25.0 % (11.6-14.6)
[2024-05-04 05:25] LABS: CREATININE 0.5 mg/dL (0.6-1.3); UREA NITROGEN BLOOD 15 mg/dL (9-23)
[2024-05-04 08:30] LABS: BG BASE EXCESS 7.9 mmol/L (-2.0-3.0); BG CARBOXYHEMOGLOBIN 1.3 % (0.5-1.5); BG DEOXYHEMOGLOBIN 8.8 % (0.0-5.0); BG FRACTION INSPIRED OXYGEN 40; BG HCO3 ACT 33.4 mmol/L (21.0-28.0); BG METHEMOGLOBIN 0.3 % (0.5-1.5); BG OXYGEN SATURATION 91.1 % (94.0-98.0); BG OXYHEMOGLOBIN 89.6 % (94.0-98.0); BG PCO2 53.1 mmHg (35.0-48.0); BG PEEP (cmH2O) 10.0 cmH2O; BG PH 7.416 (7.350-7.450); BG PO2 62.7 mmHg (83.0-108.0); BG SAMPLE SITE RIGHT RADIAL; BG TIDAL VOLUME(mL) 600.0 mL; BG TOTAL HEMOGLOBIN 8.2 g/dL (13.5-17.5); BG VENT MODE VENT - AC; BG VENT RATE 10.0 set
[2024-05-05] VITALS (36 sets, daily range): BP systolic 102–134; BP diastolic 53–114; PULSE 112–133; RESP 18–31; TEMP 36.7–37.8; O2SAT 88–99
[2024-05-05 05:43] LABS: BASOPHILS % 0.1 % (0.0-2.0); EOSINOPHILS % 6.3 % (0.0-5.0); HEMATOCRIT. 25.0 % (42.0-52.0); HEMOGLOBIN. 7.7 g/dL (14.0-18.0); LYMPHOCYTES % 19.0 % (20.0-50.0); MEAN PLATELET VOLUME 8.5 fl (7.4-10.4); MONOCYTES % 7.7 % (2.0-8.0); NEUTROPHILS % 66.9 % (40.0-76.0); PLATELET 412 x1000/uL (130-400); RED BLOOD CELL COUNT 3.08 mill/uL (4.7-6.1); RED CELL DISTRIBUTION WIDTH 25.6 % (11.6-14.6)
[2024-05-05 06:01] LABS: CREATININE 0.6 mg/dL (0.6-1.3); UREA NITROGEN BLOOD 13 mg/dL (9-23)
[2024-05-05] MEDS: ENOXAPARIN 40MG/0.4ML SYR SUBCUT SCH (21:45)
[2024-05-06] VITALS (33 sets, daily range): BP systolic 103–132; BP diastolic 47–81; PULSE 108–125; RESP 20–36; TEMP 36.6–37.7; O2SAT 87–100
[2024-05-07] VITALS (56 sets, daily range): BP systolic 92–124; BP diastolic 50–79; PULSE 107–121; RESP 10–26; TEMP 36.7–37.2; O2SAT 91–100
[2024-05-07 06:32] LABS: BASOPHILS % 0.4 % (0.0-2.0); EOSINOPHILS % 6.8 % (0.0-5.0); HEMATOCRIT. 26.0 % (42.0-52.0); HEMOGLOBIN. 7.9 g/dL (14.0-18.0); LYMPHOCYTES % 17.1 % (20.0-50.0); MEAN PLATELET VOLUME 8.1 fl (7.4-10.4); MONOCYTES % 7.3 % (2.0-8.0); NEUTROPHILS % 68.4 % (40.0-76.0); PLATELET 497 x1000/uL (130-400); RED BLOOD CELL COUNT 3.17 mill/uL (4.7-6.1); RED CELL DISTRIBUTION WIDTH 25.6 % (11.6-14.6); UREA NITROGEN BLOOD 11 mg/dL (9-23)
[2024-05-07 06:58] LABS: CREATININE 0.4 mg/dL (0.6-1.3)
[2024-05-07] MEDS: FUROSEMIDE 40MG/4ML VIAL IVP SCH (11:48)
[2024-05-08] VITALS (61 sets, daily range): BP systolic 107–165; BP diastolic 42–107; PULSE 107–132; RESP 18–40; TEMP 36.6–37.7; O2SAT 92–100
[2024-05-08 06:48] LABS: BASOPHILS % 0.3 % (0.0-2.0); EOSINOPHILS % 5.2 % (0.0-5.0); HEMATOCRIT. 26.0 % (42.0-52.0); HEMOGLOBIN. 8.2 g/dL (14.0-18.0); LYMPHOCYTES % 20.3 % (20.0-50.0); MEAN PLATELET VOLUME 8.3 fl (7.4-10.4); MONOCYTES % 8.2 % (2.0-8.0); NEUTROPHILS % 66.0 % (40.0-76.0); PLATELET 529 x1000/uL (130-400); RED BLOOD CELL COUNT 3.20 mill/uL (4.7-6.1); RED CELL DISTRIBUTION WIDTH 25.5 % (11.6-14.6)
[2024-05-08 06:53] LABS: ADD RBC MORPHOLOGY YES
[2024-05-08 07:25] LABS: CREATININE 0.5 mg/dL (0.6-1.3)
[2024-05-08 07:26] LABS: UREA NITROGEN BLOOD 10 mg/dL (9-23)
[2024-05-08] MEDS: POTASSIUM CHLORIDE 20MEQ/PACKET NG NR (08:32)
[2024-05-08 17:44] LABS: PLATELET ESTIMATE INCREASED
[2024-05-08] MEDS: HYDRALAZINE 20MG/ML VIAL IV PRN (18:35)
[2024-05-08] MEDS: ACETAMINOPHEN 325MG TABLET PO PRN (21:14)
[2024-05-09] VITALS (52 sets, daily range): BP systolic 141–171; BP diastolic 45–127; PULSE 120–137; RESP 17–43; TEMP 36.9–37.7; O2SAT 92–99
[2024-05-09 05:45] LABS: BASOPHILS % 0.2 % (0.0-2.0); EOSINOPHILS % 4.3 % (0.0-5.0); HEMATOCRIT. 26.3 % (42.0-52.0); HEMOGLOBIN. 8.4 g/dL (14.0-18.0); LYMPHOCYTES % 12.3 % (20.0-50.0); MEAN PLATELET VOLUME 8.2 fl (7.4-10.4); MONOCYTES % 8.2 % (2.0-8.0); NEUTROPHILS % 75.0 % (40.0-76.0); PLATELET 563 x1000/uL (130-400); RED BLOOD CELL COUNT 3.25 mill/uL (4.7-6.1); RED CELL DISTRIBUTION WIDTH 25.9 % (11.6-14.6)
[2024-05-09 05:55] LABS: CREATININE 0.5 mg/dL (0.6-1.3); UREA NITROGEN BLOOD 9 mg/dL (9-23)
[2024-05-09] MEDS: DILTIAZEM HCL 60MG TABLET PO SCH (09:16)
[2024-05-09] MEDS: CLONIDINE 0.1MG TABLET NG PRN (15:10)
[2024-05-10] VITALS (77 sets, daily range): BP systolic 97–154; BP diastolic 49–87; PULSE 108–123; RESP 17–36; TEMP 36.4–37.1; O2SAT 89–100
[2024-05-10 06:33] LABS: CREATININE 0.6 mg/dL (0.6-1.3); UREA NITROGEN BLOOD 10 mg/dL (9-23)
[2024-05-10 12:45] LABS: BASOPHILS % 0.3 % (0.0-2.0); EOSINOPHILS % 1.5 % (0.0-5.0); HEMATOCRIT. 26.7 % (42.0-52.0); LYMPHOCYTES % 10.1 % (20.0-50.0); MEAN PLATELET VOLUME 7.5 fl (7.4-10.4); MONOCYTES % 7.8 % (2.0-8.0); NEUTROPHILS % 80.3 % (40.0-76.0); PLATELET 535 x1000/uL (130-400); RED BLOOD CELL COUNT 3.24 mill/uL (4.7-6.1); RED CELL DISTRIBUTION WIDTH 26.2 % (11.6-14.6)
[2024-05-10 12:46] LABS: HEMOGLOBIN. 8.4 g/dL (14.0-18.0)
[2024-05-10 12:47] LABS: ADD RBC MORPHOLOGY NO
[2024-05-11] VITALS (20 sets, daily range): BP systolic 85–148; BP diastolic 32–78; PULSE 110–126; RESP 18–43; TEMP 36.4–38.9; O2SAT 95–100
[2024-05-11] MEDS: AMIODARONE 200MG TABLET PO SCH (10:58)
[2024-05-12] VITALS (21 sets, daily range): BP systolic 96–159; BP diastolic 64–91; PULSE 109–121; RESP 20–36; TEMP 36.7–38.1; O2SAT 96–100
[2024-05-12] MEDS: IPRATROPIUM/ALBUTEROL 0.5-3(2.5)MG/3ML NEB ONE (08:55)
[2024-05-12 11:42] LABS: BASOPHILS % 0.3 % (0.0-2.0); EOSINOPHILS % 3.6 % (0.0-5.0); HEMATOCRIT. 27.0 % (42.0-52.0); HEMOGLOBIN. 8.6 g/dL (14.0-18.0); LYMPHOCYTES % 18.9 % (20.0-50.0); MEAN PLATELET VOLUME 7.9 fl (7.4-10.4); MONOCYTES % 9.0 % (2.0-8.0); NEUTROPHILS % 68.2 % (40.0-76.0); PLATELET 470 x1000/uL (130-400); RED BLOOD CELL COUNT 3.32 mill/uL (4.7-6.1); RED CELL DISTRIBUTION WIDTH 26.0 % (11.6-14.6)
[2024-05-12 11:55] LABS: ADD RBC MORPHOLOGY NO
[2024-05-12 12:01] LABS: CREATININE 0.6 mg/dL (0.6-1.3); UREA NITROGEN BLOOD 12 mg/dL (9-23)
[2024-05-12] MEDS: POTASSIUM CHLORIDE 20MEQ TABLET SR PO NR (16:19)
[2024-05-13] VITALS (23 sets, daily range): BP systolic 102–118; BP diastolic 59–75; PULSE 103–124; RESP 16–35; TEMP 36.2–38.1; O2SAT 96–99
[2024-05-13 06:55] LABS: BASOPHILS % 0.4 % (0.0-2.0); EOSINOPHILS % 4.0 % (0.0-5.0); HEMATOCRIT. 27.3 % (42.0-52.0); HEMOGLOBIN. 8.5 g/dL (14.0-18.0); LYMPHOCYTES % 19.0 % (20.0-50.0); MEAN PLATELET VOLUME 8.0 fl (7.4-10.4); MONOCYTES % 9.0 % (2.0-8.0); NEUTROPHILS % 67.6 % (40.0-76.0); PLATELET 442 x1000/uL (130-400); RED BLOOD CELL COUNT 3.38 mill/uL (4.7-6.1); RED CELL DISTRIBUTION WIDTH 25.7 % (11.6-14.6)
[2024-05-13 07:02] LABS: ADD RBC MORPHOLOGY NO
[2024-05-13 07:29] LABS: CREATININE 0.6 mg/dL (0.6-1.3)
[2024-05-13 07:30] LABS: UREA NITROGEN BLOOD 12 mg/dL (9-23)
[2024-05-13] MEDS: AMIODARONE 200MG TABLET PO SCH (10:04)
[2024-05-13] MEDS: POTASSIUM CHLORIDE 20MEQ/PACKET PO NR (10:07)
[2024-05-13 21:43] LABS: PHOSPHORUS 3.2 mg/dL (2.5-4.9)
[2024-05-13] MEDS: MAGNESIUM 4 G PREMIX 100 ML IV NR (23:41)
[2024-05-14] VITALS (27 sets, daily range): BP systolic 95–108; BP diastolic 53–66; PULSE 102–118; RESP 16–40; TEMP 36.4–38.6; O2SAT 0–100
[2024-05-14 07:48] LABS: BASOPHILS % 0.4 % (0.0-2.0); EOSINOPHILS % 4.9 % (0.0-5.0); HEMATOCRIT. 27.1 % (42.0-52.0); HEMOGLOBIN. 8.4 g/dL (14.0-18.0); LYMPHOCYTES % 22.5 % (20.0-50.0); MEAN PLATELET VOLUME 8.1 fl (7.4-10.4); MONOCYTES % 8.3 % (2.0-8.0); NEUTROPHILS % 63.9 % (40.0-76.0); PLATELET 378 x1000/uL (130-400); RED BLOOD CELL COUNT 3.27 mill/uL (4.7-6.1); RED CELL DISTRIBUTION WIDTH 25.6 % (11.6-14.6)
[2024-05-14 08:07] LABS: CREATININE 0.5 mg/dL (0.6-1.3); UREA NITROGEN BLOOD 11 mg/dL (9-23)
[2024-05-14] MEDS: LIDOCAINE HCL 1% 10 MG/ML 10ML VIAL ONE (10:42)
[2024-05-14] MEDS: POTASSIUM CHLORIDE 20MEQ/PACKET PO SCH (11:22)
[2024-05-15] VITALS (22 sets, daily range): BP systolic 90–112; BP diastolic 54–73; PULSE 101–115; RESP 14–36; TEMP 37.1–37.8; O2SAT 94–100
[2024-05-15 06:07] LABS: BASOPHILS % 0.6 % (0.0-2.0); EOSINOPHILS % 7.1 % (0.0-5.0); HEMATOCRIT. 25.5 % (42.0-52.0); HEMOGLOBIN. 7.9 g/dL (14.0-18.0); LYMPHOCYTES % 29.2 % (20.0-50.0); MEAN PLATELET VOLUME 8.3 fl (7.4-10.4); MONOCYTES % 10.2 % (2.0-8.0); NEUTROPHILS % 52.9 % (40.0-76.0); PLATELET 345 x1000/uL (130-400); RED BLOOD CELL COUNT 3.09 mill/uL (4.7-6.1); RED CELL DISTRIBUTION WIDTH 25.5 % (11.6-14.6)
[2024-05-15 06:14] LABS: CREATININE 0.4 mg/dL (0.6-1.3); UREA NITROGEN BLOOD 11 mg/dL (9-23)
[2024-05-15 06:16] LABS: PHOSPHORUS 3.2 mg/dL (2.5-4.9)
[2024-05-15] MEDS ORDERED: NALOXONE HCL 0.4MG/ML VIAL IV PRN (16:45)
[2024-05-15] MEDS: MORPHINE SULFATE 2 MG/ML INJ (NOT FOR IM USE) IV PRN (17:55)
[2024-05-16] VITALS (19 sets, daily range): BP systolic 91–118; BP diastolic 58–71; PULSE 103–119; RESP 19–35; TEMP 36.7–38; O2SAT 93–100
[2024-05-16 07:02] LABS: BASOPHILS % 0.3 % (0.0-2.0); EOSINOPHILS % 8.8 % (0.0-5.0); HEMATOCRIT. 27.2 % (42.0-52.0); HEMOGLOBIN. 8.3 g/dL (14.0-18.0); LYMPHOCYTES % 28.1 % (20.0-50.0); MEAN PLATELET VOLUME 8.4 fl (7.4-10.4); MONOCYTES % 9.5 % (2.0-8.0); NEUTROPHILS % 53.3 % (40.0-76.0); PLATELET 329 x1000/uL (130-400); RED BLOOD CELL COUNT 3.29 mill/uL (4.7-6.1); RED CELL DISTRIBUTION WIDTH 25.3 % (11.6-14.6)
[2024-05-16 07:11] LABS: CREATININE 0.4 mg/dL (0.6-1.3)
[2024-05-16 07:12] LABS: UREA NITROGEN BLOOD 11 mg/dL (9-23)
[2024-05-16 11:56] LABS: BG BASE EXCESS 9.0 mmol/L (-2.0-3.0); BG CARBOXYHEMOGLOBIN 0.9 % (0.5-1.5); BG DEOXYHEMOGLOBIN 7.6 % (0.0-5.0); BG FRACTION INSPIRED OXYGEN 40; BG HCO3 ACT 34.4 mmol/L (21.0-28.0); BG METHEMOGLOBIN 0.3 % (0.5-1.5); BG OXYGEN SATURATION 92.3 % (94.0-98.0); BG OXYHEMOGLOBIN 91.2 % (94.0-98.0); BG PCO2 51.7 mmHg (35.0-48.0); BG PEEP (cmH2O) 10.0 cmH2O; BG PH 7.441 (7.350-7.450); BG PO2 65.2 mmHg (83.0-108.0); BG SAMPLE SITE RIGHT RADIAL; BG TOTAL HEMOGLOBIN 10.5 g/dL (13.5-17.5); BG VENT MODE VENT - CPAP
[2024-05-17] VITALS (23 sets, daily range): BP systolic 97–134; BP diastolic 63–93; PULSE 101–118; RESP 14–32; TEMP 36.9–37.9; O2SAT 93–100
[2024-05-17 06:38] LABS: CREATININE 0.5 mg/dL (0.6-1.3); UREA NITROGEN BLOOD 11 mg/dL (9-23)
[2024-05-17 06:59] LABS: HEMATOCRIT. 26.7 % (42.0-52.0); HEMOGLOBIN. 8.0 g/dL (14.0-18.0); MEAN PLATELET VOLUME 8.3 fl (7.4-10.4); PLATELET 293 x1000/uL (130-400); RED BLOOD CELL COUNT 3.12 mill/uL (4.7-6.1); RED CELL DISTRIBUTION WIDTH 25.5 % (11.6-14.6)
[2024-05-17 16:21] LABS: EOSINOPHILS % MANUAL 6.0 % (0.0-5.0); LYMPHOCYTES % MANUAL 25.0 % (20.0-50.0); MONOCYTES % MANUAL 19.0 % (2.0-8.0); NEUTROPHILS % MANUAL 50.0 % (45.0-75.0); PLATELET ESTIMATE NORMAL
[2024-05-17] MEDS: ENOXAPARIN 40MG/0.4ML SYR SUBCUT SCH (21:52)
[2024-05-18] VITALS (25 sets, daily range): BP systolic 97–117; BP diastolic 60–87; PULSE 103–124; RESP 15–28; TEMP 36.3–37.7; O2SAT 89–100
[2024-05-18 06:30] LABS: BASOPHILS % 0.3 % (0.0-2.0); EOSINOPHILS % 12.9 % (0.0-5.0); HEMATOCRIT. 25.1 % (42.0-52.0); HEMOGLOBIN. 7.9 g/dL (14.0-18.0); LYMPHOCYTES % 26.1 % (20.0-50.0); MEAN PLATELET VOLUME 8.4 fl (7.4-10.4); MONOCYTES % 9.0 % (2.0-8.0); NEUTROPHILS % 51.7 % (40.0-76.0); PLATELET 311 x1000/uL (130-400); RED BLOOD CELL COUNT 2.92 mill/uL (4.7-6.1); RED CELL DISTRIBUTION WIDTH 25.2 % (11.6-14.6)
[2024-05-18 06:32] LABS: CREATININE 0.5 mg/dL (0.6-1.3); UREA NITROGEN BLOOD 11 mg/dL (9-23)
[2024-05-18 06:45] LABS: ADD RBC MORPHOLOGY NO
[2024-05-19] VITALS (23 sets, daily range): BP systolic 89–117; BP diastolic 50–81; PULSE 105–119; RESP 14–43; TEMP 36.7–38.2; O2SAT 10–100
[2024-05-19] MEDS ORDERED: SODIUM CHLORIDE 0.9% 1,000 ML IV NR (02:00)
[2024-05-19] MEDS: MIDODRINE HCL 5MG TABLET PO NR (02:15)
[2024-05-19] MEDS: ASCORBIC ACID 500 MG TABLET GT SCH (20:49)
[2024-05-19] MEDS: ZINC SULFATE 220 MG ( 50 ) CAPSULE PO SCH (20:49)
[2024-05-20] VITALS (24 sets, daily range): BP systolic 96–116; BP diastolic 56–79; PULSE 106–125; RESP 13–35; TEMP 36.6–38.1; O2SAT 96–100
[2024-05-20] MEDS ORDERED: DIGOXIN 250MCG TABLET PO NR (10:45)
[2024-05-20] MEDS: DIGOXIN 125MCG TABLET PO NR (11:39)
[2024-05-20 12:04] LABS: BASOPHILS % 0.2 % (0.0-2.0); EOSINOPHILS % 10.9 % (0.0-5.0); HEMATOCRIT. 27.5 % (42.0-52.0); HEMOGLOBIN. 8.5 g/dL (14.0-18.0); LYMPHOCYTES % 17.1 % (20.0-50.0); MEAN PLATELET VOLUME 8.0 fl (7.4-10.4); MONOCYTES % 8.9 % (2.0-8.0); NEUTROPHILS % 62.9 % (40.0-76.0); PLATELET 353 x1000/uL (130-400); RED BLOOD CELL COUNT 3.35 mill/uL (4.7-6.1); RED CELL DISTRIBUTION WIDTH 25.7 % (11.6-14.6)
[2024-05-20 12:08] LABS: ADD RBC MORPHOLOGY NO
[2024-05-20 12:18] LABS: CREATININE 0.5 mg/dL (0.6-1.3); UREA NITROGEN BLOOD 12 mg/dL (9-23)
[2024-05-20] MEDS: DIGOXIN 125MCG TABLET PO SCH (18:20)
[2024-05-21] VITALS (33 sets, daily range): BP systolic 84–141; BP diastolic 44–77; PULSE 90–143; RESP 12–35; TEMP 36.8–38.1; O2SAT 85–100
[2024-05-21] MEDS: METOPROLOL TARTRATE 50MG TABLET NG SCH (03:43)
[2024-05-21] MEDS ORDERED: METOPROLOL SUCCINATE 50MG ER TABLET PO SCH (03:45)
[2024-05-21 06:11] LABS: CREATININE 0.6 mg/dL (0.6-1.3); UREA NITROGEN BLOOD 13 mg/dL (9-23)
[2024-05-21 06:34] LABS: HEMATOCRIT. 33.2 % (42.0-52.0); HEMOGLOBIN. 10.0 g/dL (14.0-18.0); RED BLOOD CELL COUNT 3.91 mill/uL (4.7-6.1); RED CELL DISTRIBUTION WIDTH 25.5 % (11.6-14.6)
[2024-05-21 06:47] LABS: LYMPHOCYTES % 17.0 % (20.0-50.0); NEUTROPHILS % 70.6 % (40.0-76.0)
[2024-05-21 06:48] LABS: ADD RBC MORPHOLOGY NO; BASOPHILS % 0.3 % (0.0-2.0); EOSINOPHILS % 5.9 % (0.0-5.0); MONOCYTES % 6.2 % (2.0-8.0)
[2024-05-21] MEDS: SODIUM ZIRCONIUM CYCLOSILICATE 10GM/PACKET PO NR (08:43)
[2024-05-21] MEDS: MIDODRINE HCL 5MG TABLET PO SCH (09:02)
[2024-05-22] VITALS (23 sets, daily range): BP systolic 99–141; BP diastolic 47–82; PULSE 105–124; RESP 19–36; TEMP 36.4–37.9; O2SAT 87–100
[2024-05-22 06:10] LABS: UREA NITROGEN BLOOD 15 mg/dL (9-23)
[2024-05-22 06:12] LABS: HEMATOCRIT. 23.8 % (42.0-52.0); HEMOGLOBIN. 7.7 g/dL (14.0-18.0); MEAN PLATELET VOLUME 8.1 fl (7.4-10.4); PLATELET 320 x1000/uL (130-400); RED BLOOD CELL COUNT 2.73 mill/uL (4.7-6.1); RED CELL DISTRIBUTION WIDTH 25.0 % (11.6-14.6)
[2024-05-22 06:20] LABS: CREATININE 0.4 mg/dL (0.6-1.3)
[2024-05-22] MEDS: POTASSIUM CHLORIDE 20MEQ TABLET SR PO NR (08:26)
[2024-05-22 14:32] LABS: EOSINOPHILS % MANUAL 2.0 % (0.0-5.0); LYMPHOCYTES % MANUAL 23.0 % (20.0-50.0); MONOCYTES % MANUAL 14.0 % (2.0-8.0); NEUTROPHILS % MANUAL 61.0 % (45.0-75.0); PLATELET ESTIMATE NORMAL
[2024-05-22] MEDS: MIDODRINE HCL 5MG TABLET PO SCH (15:28)
[2024-05-23] VITALS (23 sets, daily range): BP systolic 94–135; BP diastolic 50–79; PULSE 100–131; RESP 15–32; TEMP 36.8–37.8; O2SAT 96–100
[2024-05-23 06:26] LABS: BASOPHILS % 0.4 % (0.0-2.0); EOSINOPHILS % 10.7 % (0.0-5.0); HEMATOCRIT. 23.9 % (42.0-52.0); HEMOGLOBIN. 7.8 g/dL (14.0-18.0); LYMPHOCYTES % 23.9 % (20.0-50.0); MEAN PLATELET VOLUME 8.1 fl (7.4-10.4); MONOCYTES % 8.9 % (2.0-8.0); NEUTROPHILS % 56.1 % (40.0-76.0); PLATELET 297 x1000/uL (130-400); RED BLOOD CELL COUNT 2.73 mill/uL (4.7-6.1); RED CELL DISTRIBUTION WIDTH 25.2 % (11.6-14.6)
[2024-05-23 06:35] LABS: CREATININE 0.5 mg/dL (0.6-1.3)
[2024-05-23 06:36] LABS: UREA NITROGEN BLOOD 14 mg/dL (9-23)
[2024-05-23 07:13] LABS: ADD RBC MORPHOLOGY YES
[2024-05-23] MEDS: KCL 20MEQ/100ML PREMIX 100 ML IV SCH (11:21)
[2024-05-23 13:49] LABS: PLATELET ESTIMATE NORMAL
[2024-05-23] MEDS: FAMOTIDINE 20MG/2ML VIAL IV SCH (14:09)
[2024-05-24] VITALS (25 sets, daily range): BP systolic 108–152; BP diastolic 54–85; PULSE 96–137; RESP 14–44; TEMP 36.9–38.2; O2SAT 99–100
[2024-05-24 06:14] LABS: HEMATOCRIT. 22.4 % (42.0-52.0); HEMOGLOBIN. 7.3 g/dL (14.0-18.0); MEAN PLATELET VOLUME 8.0 fl (7.4-10.4); PLATELET 298 x1000/uL (130-400); RED BLOOD CELL COUNT 2.62 mill/uL (4.7-6.1); RED CELL DISTRIBUTION WIDTH 24.2 % (11.6-14.6)
[2024-05-24 06:25] LABS: CREATININE 0.4 mg/dL (0.6-1.3)
[2024-05-24 06:26] LABS: UREA NITROGEN BLOOD 13 mg/dL (9-23)
[2024-05-24] MEDS: POTASSIUM CHLORIDE 20MEQ TABLET SR PO SCH (15:53)
[2024-05-24 16:32] LABS: EOSINOPHILS % MANUAL 5.0 % (0.0-5.0); LYMPHOCYTES % MANUAL 22.0 % (20.0-50.0); MONOCYTES % MANUAL 12.0 % (2.0-8.0); NEUTROPHILS % MANUAL 61.0 % (45.0-75.0); PLATELET ESTIMATE NORMAL
[2024-05-25] VITALS (22 sets, daily range): BP systolic 115–138; BP diastolic 69–114; PULSE 97–131; RESP 12–38; TEMP 36.7–38.8; O2SAT 95–100
[2024-05-25 13:57] LABS: BG BASE EXCESS 5.4 mmol/L (-2.0-3.0); BG CARBOXYHEMOGLOBIN 1.8 % (0.5-1.5); BG DEOXYHEMOGLOBIN 2.9 % (0.0-5.0); BG FRACTION INSPIRED OXYGEN 40; BG HCO3 ACT 29.4 mmol/L (21.0-28.0); BG METHEMOGLOBIN 0.3 % (0.5-1.5); BG OXYGEN SATURATION 97.0 % (94.0-98.0); BG OXYHEMOGLOBIN 95.0 % (94.0-98.0); BG PCO2 40.7 mmHg (35.0-48.0); BG PEEP (cmH2O) 10.0 cmH2O; BG PH 7.477 (7.350-7.450); BG PO2 84.0 mmHg (83.0-108.0); BG SAMPLE SITE RIGHT RADIAL; BG TOTAL HEMOGLOBIN 7.3 g/dL (13.5-17.5); BG VENT MODE VENT - CPAP
[2024-05-26] VITALS (24 sets, daily range): BP systolic 93–114; BP diastolic 55–70; PULSE 103–119; RESP 16–38; TEMP 36.8–37.2; O2SAT 96–100
[2024-05-27] VITALS (23 sets, daily range): BP systolic 99–139; BP diastolic 53–80; PULSE 99–128; RESP 13–27; TEMP 36.8–37.5; O2SAT 93–100
[2024-05-27 08:34] LABS: PLATELET 370 x1000/uL (130-400); RED BLOOD CELL COUNT 2.92 mill/uL (4.7-6.1); RED CELL DISTRIBUTION WIDTH 24.1 % (11.6-14.6)
[2024-05-27 08:52] LABS: CREATININE 0.3 mg/dL (0.6-1.3); UREA NITROGEN BLOOD 12 mg/dL (9-23)
[2024-05-27] MEDS: KCL 20MEQ/100ML PREMIX 100 ML IV SCH (10:11)
[2024-05-28] VITALS (28 sets, daily range): BP systolic 95–120; BP diastolic 54–91; PULSE 107–125; RESP 18–37; TEMP 36.5–37.1; O2SAT 89–100
[2024-05-28 06:51] LABS: CREATININE 0.3 mg/dL (0.6-1.3); UREA NITROGEN BLOOD 11 mg/dL (9-23)
[2024-05-28 07:13] LABS: HEMATOCRIT. 24.3 % (42.0-52.0); HEMOGLOBIN. 8.0 g/dL (14.0-18.0); MEAN PLATELET VOLUME 8.2 fl (7.4-10.4); PLATELET 432 x1000/uL (130-400); RED BLOOD CELL COUNT 2.89 mill/uL (4.7-6.1); RED CELL DISTRIBUTION WIDTH 24.2 % (11.6-14.6)
[2024-05-28] MEDS: POTASSIUM CHLORIDE 20MEQ/PACKET PO NR (09:03)
[2024-05-28] MEDS: MAGNESIUM 1 G PREMIX 100 ML IV NR (12:00)
[2024-05-28] MEDS: KCL 20MEQ/100ML X 3 FOR TOTAL KCL 60MEQ/300ML IV SCH (14:00)
[2024-05-28 14:31] LABS: BAND% 13.0 % (1.0-6.0); EOSINOPHILS % MANUAL 26.0 % (0.0-5.0); LYMPHOCYTES % MANUAL 20.0 % (20.0-50.0); MONOCYTES % MANUAL 6.0 % (2.0-8.0); NEUTROPHILS % MANUAL 35.0 % (45.0-75.0)
[2024-05-28 14:32] LABS: PLATELET ESTIMATE SLIGHTLY INCREASED
[2024-05-29] VITALS (22 sets, daily range): BP systolic 100–135; BP diastolic 48–93; PULSE 103–133; RESP 17–33; TEMP 36.6–37.4; O2SAT 92–99
[2024-05-29 08:32] LABS: HEMATOCRIT. 25.8 % (42.0-52.0); HEMOGLOBIN. 8.4 g/dL (14.0-18.0); MEAN PLATELET VOLUME 8.1 fl (7.4-10.4); PLATELET 510 x1000/uL (130-400); RED BLOOD CELL COUNT 3.06 mill/uL (4.7-6.1); RED CELL DISTRIBUTION WIDTH 24.6 % (11.6-14.6)
[2024-05-29 08:35] LABS: UREA NITROGEN BLOOD 20 mg/dL (9-23)
[2024-05-29 08:52] LABS: CREATININE 0.4 mg/dL (0.6-1.3)
[2024-05-29 17:35] LABS: BAND% 7.0 % (1.0-6.0); EOSINOPHILS % MANUAL 18.0 % (0.0-5.0); LYMPHOCYTES % MANUAL 17.0 % (20.0-50.0); MONOCYTES % MANUAL 12.0 % (2.0-8.0); NEUTROPHILS % MANUAL 46.0 % (45.0-75.0); PLATELET ESTIMATE SLIGHTLY INCREASED
[2024-05-30] VITALS (23 sets, daily range): BP systolic 114–133; BP diastolic 64–82; PULSE 98–123; RESP 14–30; TEMP 36.2–37.2; O2SAT 90–100
[2024-05-30] MEDS: ENOXAPARIN 40MG/0.4ML SYR SUBCUT SCH (14:00)
[2024-05-30 16:58] LABS: HEMATOCRIT. 28.7 % (42.0-52.0); HEMOGLOBIN. 9.0 g/dL (14.0-18.0); MEAN PLATELET VOLUME 7.7 fl (7.4-10.4); PLATELET 526 x1000/uL (130-400); RED BLOOD CELL COUNT 3.47 mill/uL (4.7-6.1); RED CELL DISTRIBUTION WIDTH 24.6 % (11.6-14.6)
[2024-05-30 17:24] LABS: CREATININE 0.3 mg/dL (0.6-1.3); UREA NITROGEN BLOOD 13 mg/dL (9-23)
[2024-05-30 17:31] LABS: BAND% 1.0 % (1.0-6.0); EOSINOPHILS % MANUAL 24.0 % (0.0-5.0); LYMPHOCYTES % MANUAL 18.0 % (20.0-50.0); MONOCYTES % MANUAL 10.0 % (2.0-8.0); NEUTROPHILS % MANUAL 47.0 % (45.0-75.0); PLATELET ESTIMATE INCREASED
[2024-05-30] MEDS ORDERED: ENOXAPARIN 40MG/0.4ML SYR SUBCUT SCH (18:00)
[2024-05-31] VITALS (23 sets, daily range): BP systolic 96–114; BP diastolic 54–70; PULSE 99–130; RESP 14–35; TEMP 36.7–38.2; O2SAT 91–100
[2024-05-31 06:19] LABS: HEMATOCRIT. 26.8 % (42.0-52.0); HEMOGLOBIN. 8.8 g/dL (14.0-18.0); MEAN PLATELET VOLUME 7.7 fl (7.4-10.4); PLATELET 542 x1000/uL (130-400); RED BLOOD CELL COUNT 3.10 mill/uL (4.7-6.1); RED CELL DISTRIBUTION WIDTH 24.3 % (11.6-14.6)
[2024-05-31 06:28] LABS: CREATININE 0.6 mg/dL (0.6-1.3)
[2024-05-31 06:30] LABS: UREA NITROGEN BLOOD 22 mg/dL (9-23)
[2024-05-31] MEDS ORDERED: IPRATROPIUM/ALBUTEROL 0.5-3(2.5)MG/3ML NEB HHN PRN (12:30)
[2024-05-31 18:41] LABS: EOSINOPHILS % MANUAL 13.0 % (0.0-5.0); LYMPHOCYTES % MANUAL 25.0 % (20.0-50.0); MONOCYTES % MANUAL 8.0 % (2.0-8.0); NEUTROPHILS % MANUAL 54.0 % (45.0-75.0); PLATELET ESTIMATE INCREASED
[2024-06-01] VITALS (23 sets, daily range): BP systolic 93–128; BP diastolic 52–100; PULSE 97–124; RESP 13–32; TEMP 36.7–37.6; O2SAT 92–100
[2024-06-02] VITALS (23 sets, daily range): BP systolic 82–134; BP diastolic 41–86; PULSE 96–148; RESP 13–34; TEMP 36.7–38.9; O2SAT 94–100
[2024-06-02] MEDS: SODIUM CHLORIDE 0.9% 500 ML IV NR (00:09)
[2024-06-02] MEDS: MIDODRINE HCL 5MG TABLET NG SCH (00:09)
[2024-06-02] MEDS ORDERED: SODIUM CHLORIDE 0.9% 500 ML IV NR (01:30)
[2024-06-02] MEDS: SODIUM CHLORIDE 0.9% 1,000 ML IV SCH (01:59)
[2024-06-02] MEDS: IBUPROFEN 800MG TABLET PO SCH (02:15)
[2024-06-02 06:41] LABS: BASOPHILS % 0.2 % (0.0-2.0); EOSINOPHILS % 6.7 % (0.0-5.0); LYMPHOCYTES % 11.4 % (20.0-50.0); MEAN PLATELET VOLUME 7.4 fl (7.4-10.4); MONOCYTES % 6.8 % (2.0-8.0); NEUTROPHILS % 74.9 % (40.0-76.0); PLATELET 513 x1000/uL (130-400); RED BLOOD CELL COUNT 2.45 mill/uL (4.7-6.1); RED CELL DISTRIBUTION WIDTH 24.9 % (11.6-14.6)
[2024-06-02 06:56] LABS: CREATININE 0.5 mg/dL (0.6-1.3); UREA NITROGEN BLOOD 18 mg/dL (9-23)
[2024-06-02 08:11] LABS: HEMATOCRIT. 20.8 % (42.0-52.0); HEMOGLOBIN. 6.6 g/dL (14.0-18.0)
[2024-06-02] MEDS: AMPICILLIN SOD/SULBACTAM NA 9 G in SODIUM CHLORIDE 0.9% 200 ML IV SCH (15:00)
[2024-06-02] MEDS: POLYMYXIN B SULFATE IV NR (21:07)
[2024-06-02] MEDS: DEXT 5% IV NR (21:07)
[2024-06-02] MEDS: WATER IV NR (21:07)
[2024-06-03] VITALS (24 sets, daily range): BP systolic 91–124; BP diastolic 47–72; PULSE 93–132; RESP 12–34; TEMP 36.6–38.1; O2SAT 98–100
[2024-06-03] MEDS ORDERED: LIDOCAINE HCL 1% 20ML VIAL ONE (08:37)
[2024-06-03] MEDS ORDERED: POTASSIUM CHLORIDE 20MEQ TABLET SR PO SCH (09:00)
[2024-06-03] MEDS: POLYMYXIN B SULFATE IV SCH (09:10)
[2024-06-03] MEDS: WATER IV SCH (09:10)
[2024-06-03] MEDS: DEXT 5% IV SCH (09:10)
[2024-06-03] MEDS: POTASSIUM CHLORIDE 20MEQ/PACKET PO SCH (11:11)
[2024-06-03] MEDS: COLISTIMETHATE SODIUM 75MG/3ML NEB SOLN NEB SCH (21:15)
[2024-06-04] VITALS (22 sets, daily range): BP systolic 100–143; BP diastolic 61–100; PULSE 101–127; RESP 16–34; TEMP 36.8–37; O2SAT 96–100
[2024-06-04] MEDS: CEFTRIAXONE 2GM/50ML 50 ML IV SCH (18:05)
[2024-06-04 18:54] LABS: PLATELET 411 x1000/uL (130-400); RED BLOOD CELL COUNT 3.45 mill/uL (4.7-6.1); RED CELL DISTRIBUTION WIDTH 23.2 % (11.6-14.6)
[2024-06-04 19:06] LABS: CREATININE 0.3 mg/dL (0.6-1.3); UREA NITROGEN BLOOD 9 mg/dL (9-23)
[2024-06-05] VITALS (24 sets, daily range): BP systolic 94–132; BP diastolic 52–82; PULSE 102–132; RESP 16–42; TEMP 36.2–36.9; O2SAT 97–100
[2024-06-05] MEDS ORDERED: NALOXONE HCL 0.4MG/ML VIAL IV PRN (21:00)
[2024-06-05] MEDS: HYDROCODONE/ACETAMINOPHEN 5/325MG TABLET PO PRN (22:00)
[2024-06-05 22:05] LABS: HEMATOCRIT. 28.0 % (42.0-52.0); HEMOGLOBIN. 9.1 g/dL (14.0-18.0); MEAN PLATELET VOLUME 7.6 fl (7.4-10.4); PLATELET 481 x1000/uL (130-400); RED BLOOD CELL COUNT 3.38 mill/uL (4.7-6.1); RED CELL DISTRIBUTION WIDTH 22.4 % (11.6-14.6)
[2024-06-05 22:24] LABS: CREATININE 0.3 mg/dL (0.6-1.3)
[2024-06-05 22:25] LABS: UREA NITROGEN BLOOD 9 mg/dL (9-23)
[2024-06-05 22:44] LABS: EOSINOPHILS % MANUAL 19.0 % (0.0-5.0); LYMPHOCYTES % MANUAL 25.0 % (20.0-50.0); MONOCYTES % MANUAL 12.0 % (2.0-8.0); NEUTROPHILS % MANUAL 44.0 % (45.0-75.0); PLATELET ESTIMATE INCREASED
[2024-06-06] VITALS (23 sets, daily range): BP systolic 96–116; BP diastolic 57–76; PULSE 92–126; RESP 13–42; TEMP 36.6–37.5; O2SAT 93–100
[2024-06-06 05:46] LABS: UREA NITROGEN BLOOD 9 mg/dL (9-23)
[2024-06-06 05:56] LABS: HEMATOCRIT. 29.3 % (42.0-52.0); HEMOGLOBIN. 9.6 g/dL (14.0-18.0); MEAN PLATELET VOLUME 7.5 fl (7.4-10.4); PLATELET 432 x1000/uL (130-400); RED BLOOD CELL COUNT 3.51 mill/uL (4.7-6.1); RED CELL DISTRIBUTION WIDTH 22.1 % (11.6-14.6)
[2024-06-06 05:57] LABS: CREATININE 0.4 mg/dL (0.6-1.3)
[2024-06-06 14:34] LABS: EOSINOPHILS % MANUAL 25.0 % (0.0-5.0); LYMPHOCYTES % MANUAL 48.0 % (20.0-50.0); MONOCYTES % MANUAL 4.0 % (2.0-8.0); NEUTROPHILS % MANUAL 23.0 % (45.0-75.0); PLATELET ESTIMATE SLIGHTLY INCREASED
[2024-06-06] MEDS: POTASSIUM CHLORIDE 40 MEQ in DEXT 5% WATER 500 ML IV SCH (15:54)
[2024-06-07] VITALS (18 sets, daily range): BP systolic 81–138; BP diastolic 46–101; PULSE 104–117; RESP 12–27; TEMP 36.7–37.2; O2SAT 97–100
[2024-06-07 07:11] LABS: HEMATOCRIT. 27.3 % (42.0-52.0); HEMOGLOBIN. 8.8 g/dL (14.0-18.0); MEAN PLATELET VOLUME 7.4 fl (7.4-10.4); PLATELET 471 x1000/uL (130-400); RED BLOOD CELL COUNT 3.34 mill/uL (4.7-6.1); RED CELL DISTRIBUTION WIDTH 22.2 % (11.6-14.6)
[2024-06-07 07:13] LABS: CREATININE 0.3 mg/dL (0.6-1.3); UREA NITROGEN BLOOD 8 mg/dL (9-23)
[2024-06-07 16:51] LABS: EOSINOPHILS % MANUAL 28.0 % (0.0-5.0); LYMPHOCYTES % MANUAL 22.0 % (20.0-50.0); MONOCYTES % MANUAL 10.0 % (2.0-8.0); NEUTROPHILS % MANUAL 40.0 % (45.0-75.0); PLATELET ESTIMATE INCREASED
[2024-06-07 17:14] LABS: BG BASE EXCESS 8.9 mmol/L (-2.0-3.0); BG CARBOXYHEMOGLOBIN 0.3 % (0.5-1.5); BG DEOXYHEMOGLOBIN 0.5 % (0.0-5.0); BG FLOW(L/min) 10.00 L/min; BG FRACTION INSPIRED OXYGEN 40; BG HCO3 ACT 34.7 mmol/L (21.0-28.0); BG METHEMOGLOBIN 0.0 % (0.5-1.5); BG OXYGEN SATURATION 99.5 % (94.0-98.0); BG OXYHEMOGLOBIN 99.2 % (94.0-98.0); BG PCO2 53.9 mmHg (35.0-48.0); BG PH 7.426 (7.350-7.450); BG PO2 187.5 mmHg (83.0-108.0); BG SAMPLE SITE RIGHT RADIAL; BG TOTAL HEMOGLOBIN 10.2 g/dL (13.5-17.5); BG VENT MODE COOL AEROSOL
[2024-06-08] VITALS (14 sets, daily range): BP systolic 114–136; BP diastolic 55–79; PULSE 102–123; RESP 12–43; TEMP 36.3–37.3; O2SAT 98–100
[2024-06-08] MEDS ORDERED: NON FORMULARY MED XX ONE ×2 (13:00→14:00)
[2024-06-08] MEDS ORDERED: METHYLENE BLUE 50MG/10ML AMP PO NR (15:00)
[2024-06-08] MEDS ORDERED: METHYLENE BLUE 50MG/10ML AMP IV NR (15:00)
[2024-06-09] VITALS (15 sets, daily range): BP systolic 101–147; BP diastolic 49–96; PULSE 101–121; RESP 11–42; TEMP 36.3–36.8; O2SAT 95–100
[2024-06-10] VITALS (14 sets, daily range): BP systolic 77–129; BP diastolic 53–87; PULSE 108–126; RESP 12–40; TEMP 36.4–37.8; O2SAT 88–100
[2024-06-10 06:45] LABS: HEMATOCRIT. 30.7 % (42.0-52.0); HEMOGLOBIN. 9.7 g/dL (14.0-18.0); MEAN PLATELET VOLUME 7.5 fl (7.4-10.4); PLATELET 546 x1000/uL (130-400); RED BLOOD CELL COUNT 3.71 mill/uL (4.7-6.1); RED CELL DISTRIBUTION WIDTH 22.9 % (11.6-14.6)
[2024-06-10 06:58] LABS: UREA NITROGEN BLOOD 8 mg/dL (9-23)
[2024-06-10 07:17] LABS: CREATININE 0.4 mg/dL (0.6-1.3)
[2024-06-10 22:27] LABS: EOSINOPHILS % MANUAL 20.0 % (0.0-5.0); LYMPHOCYTES % MANUAL 28.0 % (20.0-50.0); MONOCYTES % MANUAL 10.0 % (2.0-8.0); NEUTROPHILS % MANUAL 42.0 % (45.0-75.0); PLATELET ESTIMATE INCREASED
[2024-06-10] MEDS: HYDROCODONE/ACETAMINOPHEN 5/325MG TABLET PO PRN (22:56)
[2024-06-11] VITALS (14 sets, daily range): BP systolic 96–124; BP diastolic 50–89; PULSE 108–123; RESP 19–40; TEMP 36.6–37.1; O2SAT 87–100
[2024-06-11 11:23] LABS: BG BASE EXCESS 5.2 mmol/L (-2.0-3.0); BG CARBOXYHEMOGLOBIN 1.0 % (0.5-1.5); BG DEOXYHEMOGLOBIN 8.7 % (0.0-5.0); BG FRACTION INSPIRED OXYGEN 21; BG HCO3 ACT 28.9 mmol/L (21.0-28.0); BG METHEMOGLOBIN 0.0 % (0.5-1.5); BG OXYGEN SATURATION 91.2 % (94.0-98.0); BG OXYHEMOGLOBIN 90.3 % (94.0-98.0); BG PCO2 39.3 mmHg (35.0-48.0); BG PH 7.485 (7.350-7.450); BG PO2 62.2 mmHg (83.0-108.0); BG SAMPLE SITE RIGHT RADIAL; BG TOTAL HEMOGLOBIN 10.2 g/dL (13.5-17.5); BG VENT MODE ROOM AIR
[2024-06-12] VITALS (15 sets, daily range): BP systolic 78–133; BP diastolic 39–94; PULSE 111–132; RESP 22–41; TEMP 36.7–37.3; O2SAT 93–100
[2024-06-12 10:17] LABS: HEMATOCRIT. 27.8 % (42.0-52.0); HEMOGLOBIN. 8.7 g/dL (14.0-18.0); MEAN PLATELET VOLUME 7.1 fl (7.4-10.4); PLATELET 486 x1000/uL (130-400); RED BLOOD CELL COUNT 3.34 mill/uL (4.7-6.1); RED CELL DISTRIBUTION WIDTH 22.9 % (11.6-14.6)
[2024-06-12 10:41] LABS: CREATININE 0.4 mg/dL (0.6-1.3); UREA NITROGEN BLOOD 12 mg/dL (9-23)
[2024-06-12 13:37] LABS: BAND% 9.0 % (1.0-6.0); EOSINOPHILS % MANUAL 24.0 % (0.0-5.0); LYMPHOCYTES % MANUAL 21.0 % (20.0-50.0); MONOCYTES % MANUAL 7.0 % (2.0-8.0); NEUTROPHILS % MANUAL 39.0 % (45.0-75.0)
[2024-06-12 13:38] LABS: PLATELET ESTIMATE INCREASED
[2024-06-13] VITALS (12 sets, daily range): BP systolic 82–135; BP diastolic 51–99; PULSE 99–133; RESP 15–31; TEMP 36.6–37.2; O2SAT 93–99
[2024-06-13 10:45] LABS: HEMATOCRIT. 30.6 % (42.0-52.0); HEMOGLOBIN. 9.5 g/dL (14.0-18.0); MEAN PLATELET VOLUME 7.2 fl (7.4-10.4); PLATELET 571 x1000/uL (130-400); RED BLOOD CELL COUNT 3.68 mill/uL (4.7-6.1); RED CELL DISTRIBUTION WIDTH 22.4 % (11.6-14.6)
[2024-06-13 10:52] LABS: CREATININE 0.4 mg/dL (0.6-1.3)
[2024-06-13 10:53] LABS: UREA NITROGEN BLOOD 10 mg/dL (9-23)
[2024-06-13 15:01] LABS: BAND% 7.0 % (1.0-6.0); EOSINOPHILS % MANUAL 25.0 % (0.0-5.0); LYMPHOCYTES % MANUAL 26.0 % (20.0-50.0); MONOCYTES % MANUAL 10.0 % (2.0-8.0); NEUTROPHILS % MANUAL 32.0 % (45.0-75.0); PLATELET ESTIMATE INCREASED
[2024-06-14] VITALS (13 sets, daily range): BP systolic 89–122; BP diastolic 56–74; PULSE 96–132; RESP 13–42; TEMP 36.3–36.9; O2SAT 93–100
[2024-06-14] MEDS ORDERED: NALOXONE HCL 0.4MG/ML VIAL IV PRN (10:15)
[2024-06-14] MEDS: ACETAMINOPHEN 500MG TABLET PO PRN (10:15)
[2024-06-15] VITALS (13 sets, daily range): BP systolic 95–135; BP diastolic 54–77; PULSE 108–142; RESP 16–44; TEMP 36.3–37.4; O2SAT 90–99
[2024-06-16] VITALS (15 sets, daily range): BP systolic 96–123; BP diastolic 59–73; PULSE 108–128; RESP 17–36; TEMP 36.7–37.4; O2SAT 93–100
[2024-06-16 06:24] LABS: HEMATOCRIT. 29.9 % (42.0-52.0); HEMOGLOBIN. 9.6 g/dL (14.0-18.0); MEAN PLATELET VOLUME 7.1 fl (7.4-10.4); PLATELET 499 x1000/uL (130-400); RED BLOOD CELL COUNT 3.59 mill/uL (4.7-6.1); RED CELL DISTRIBUTION WIDTH 22.7 % (11.6-14.6)
[2024-06-16 11:00] LABS: CREATININE 0.4 mg/dL (0.6-1.3); UREA NITROGEN BLOOD 12 mg/dL (9-23)
[2024-06-16 16:40] LABS: EOSINOPHILS % MANUAL 26.0 % (0.0-5.0); LYMPHOCYTES % MANUAL 14.0 % (20.0-50.0); MONOCYTES % MANUAL 7.0 % (2.0-8.0); NEUTROPHILS % MANUAL 53.0 % (45.0-75.0)
[2024-06-16 16:41] LABS: PLATELET ESTIMATE INCREASED
[2024-06-17] VITALS (16 sets, daily range): BP systolic 94–124; BP diastolic 54–79; PULSE 114–127; RESP 14–30; TEMP 36.6–37.1; O2SAT 97–100
[2024-06-17 08:07] LABS: HEMATOCRIT. 24.0 % (42.0-52.0); HEMOGLOBIN. 7.9 g/dL (14.0-18.0); MEAN PLATELET VOLUME 7.1 fl (7.4-10.4); PLATELET 505 x1000/uL (130-400); RED BLOOD CELL COUNT 2.90 mill/uL (4.7-6.1); RED CELL DISTRIBUTION WIDTH 22.3 % (11.6-14.6)
[2024-06-17 08:31] LABS: CREATININE 0.3 mg/dL (0.6-1.3); UREA NITROGEN BLOOD 10 mg/dL (9-23)
[2024-06-17 13:02] LABS: BAND% 15.0 % (1.0-6.0); EOSINOPHILS % MANUAL 29.0 % (0.0-5.0); LYMPHOCYTES % MANUAL 22.0 % (20.0-50.0); MONOCYTES % MANUAL 10.0 % (2.0-8.0); NEUTROPHILS % MANUAL 24.0 % (45.0-75.0); PLATELET ESTIMATE INCREASED
[2024-06-18] VITALS (14 sets, daily range): BP systolic 75–125; BP diastolic 51–84; PULSE 110–131; RESP 19–37; TEMP 36.4–37.6; O2SAT 90–100
[2024-06-18 13:42] LABS: MEAN PLATELET VOLUME 6.9 fl (7.4-10.4); PLATELET 492 x1000/uL (130-400); RED BLOOD CELL COUNT 3.66 mill/uL (4.7-6.1); RED CELL DISTRIBUTION WIDTH 22.1 % (11.6-14.6)
[2024-06-18 13:43] LABS: HEMATOCRIT. 30.4 % (42.0-52.0); HEMOGLOBIN. 9.6 g/dL (14.0-18.0)
[2024-06-18 13:55] LABS: CREATININE 0.3 mg/dL (0.6-1.3)
[2024-06-18 13:56] LABS: UREA NITROGEN BLOOD 10 mg/dL (9-23)
[2024-06-18 14:27] LABS: BAND% 20.0 % (1.0-6.0); EOSINOPHILS % MANUAL 24.0 % (0.0-5.0); LYMPHOCYTES % MANUAL 24.0 % (20.0-50.0); MONOCYTES % MANUAL 10.0 % (2.0-8.0); NEUTROPHILS % MANUAL 22.0 % (45.0-75.0); PLATELET ESTIMATE INCREASED
[2024-06-19] VITALS (15 sets, daily range): BP systolic 95–126; BP diastolic 54–93; PULSE 108–130; RESP 15–30; TEMP 36.3–37.1; O2SAT 95–100
[2024-06-19 07:25] LABS: CREATININE 0.3 mg/dL (0.6-1.3)
[2024-06-19 07:26] LABS: UREA NITROGEN BLOOD 9 mg/dL (9-23)
[2024-06-19 11:08] LABS: HEMATOCRIT. 31.6 % (42.0-52.0); HEMOGLOBIN. 10.3 g/dL (14.0-18.0); MEAN PLATELET VOLUME 6.5 fl (7.4-10.4); PLATELET 469 x1000/uL (130-400); RED BLOOD CELL COUNT 3.81 mill/uL (4.7-6.1); RED CELL DISTRIBUTION WIDTH 21.8 % (11.6-14.6)
[2024-06-19 15:05] LABS: EOSINOPHILS % MANUAL 29.0 % (0.0-5.0); LYMPHOCYTES % MANUAL 26.0 % (20.0-50.0); MONOCYTES % MANUAL 3.0 % (2.0-8.0); NEUTROPHILS % MANUAL 42.0 % (45.0-75.0); PLATELET ESTIMATE NORMAL
[2024-06-20] VITALS (15 sets, daily range): BP systolic 82–113; BP diastolic 54–74; PULSE 112–125; RESP 16–35; TEMP 36.8–37.1; O2SAT 78–100
[2024-06-20 12:43] LABS: UREA NITROGEN BLOOD 11 mg/dL (9-23)
[2024-06-20 12:45] LABS: CREATININE 0.4 mg/dL (0.6-1.3)
[2024-06-20 16:46] LABS: HEMATOCRIT. 30.7 % (42.0-52.0); HEMOGLOBIN. 9.7 g/dL (14.0-18.0); MEAN PLATELET VOLUME 7.0 fl (7.4-10.4); PLATELET 475 x1000/uL (130-400); RED BLOOD CELL COUNT 3.65 mill/uL (4.7-6.1); RED CELL DISTRIBUTION WIDTH 22.1 % (11.6-14.6)
[2024-06-20 17:35] LABS: EOSINOPHILS % MANUAL 30.0 % (0.0-5.0); LYMPHOCYTES % MANUAL 31.0 % (20.0-50.0); MONOCYTES % MANUAL 7.0 % (2.0-8.0); MYELOCYTES % 2.0 % (0-0); NEUTROPHILS % MANUAL 30.0 % (45.0-75.0); PLATELET ESTIMATE INCREASED
[2024-06-21] VITALS (14 sets, daily range): BP systolic 101–125; BP diastolic 58–78; PULSE 102–120; RESP 14–34; TEMP 36.8–37.1; O2SAT 92–100
[2024-06-21 06:13] LABS: CREATININE 0.3 mg/dL (0.6-1.3); UREA NITROGEN BLOOD 13 mg/dL (9-23)
[2024-06-21 06:18] LABS: HEMATOCRIT. 28.8 % (42.0-52.0); HEMOGLOBIN. 9.5 g/dL (14.0-18.0); MEAN PLATELET VOLUME 7.0 fl (7.4-10.4); PLATELET 472 x1000/uL (130-400); RED BLOOD CELL COUNT 3.45 mill/uL (4.7-6.1); RED CELL DISTRIBUTION WIDTH 22.0 % (11.6-14.6)
[2024-06-21] MEDS: GUAIFENESIN-DM 200MG-20MG/10ML UDC PO PRN (10:06)
[2024-06-21] MEDS ORDERED: NALOXONE HCL 0.4MG/ML VIAL IV PRN (15:30)
[2024-06-21] MEDS: DIPHENHYDRAMINE 50MG CAPSULE PO PRN (16:21)
[2024-06-21] MEDS: HYDROCODONE/ACETAMINOPHEN 5/325MG TABLET PO PRN (16:21)
[2024-06-21 17:27] LABS: EOSINOPHILS % MANUAL 19.0 % (0.0-5.0); LYMPHOCYTES % MANUAL 28.0 % (20.0-50.0); MONOCYTES % MANUAL 4.0 % (2.0-8.0); NEUTROPHILS % MANUAL 49.0 % (45.0-75.0); PLATELET ESTIMATE INCREASED
[2024-06-22] VITALS (13 sets, daily range): BP systolic 94–125; BP diastolic 62–82; PULSE 113–129; RESP 15–35; TEMP 36.4–37.5; O2SAT 92–99
[2024-06-22 10:27] LABS: HEMATOCRIT. 28.8 % (42.0-52.0); HEMOGLOBIN. 9.2 g/dL (14.0-18.0); MEAN PLATELET VOLUME 6.5 fl (7.4-10.4); PLATELET 510 x1000/uL (130-400); RED BLOOD CELL COUNT 3.46 mill/uL (4.7-6.1); RED CELL DISTRIBUTION WIDTH 21.3 % (11.6-14.6)
[2024-06-22 10:45] LABS: UREA NITROGEN BLOOD 10 mg/dL (9-23)
[2024-06-22 11:14] LABS: CREATININE 0.4 mg/dL (0.6-1.3)
[2024-06-22 11:57] LABS: EOSINOPHILS % MANUAL 25.0 % (0.0-5.0); LYMPHOCYTES % MANUAL 20.0 % (20.0-50.0); MONOCYTES % MANUAL 7.0 % (2.0-8.0); NEUTROPHILS % MANUAL 48.0 % (45.0-75.0); NUCLEATED RED BLOOD CELLS 1 /100 WBC; PLATELET ESTIMATE INCREASED
[2024-06-22] MEDS: FUROSEMIDE 40MG/4ML VIAL IVP SCH (17:46)
[2024-06-23] VITALS (12 sets, daily range): BP systolic 83–125; BP diastolic 58–82; PULSE 101–123; RESP 13–31; TEMP 36.2–37.2; O2SAT 94–100
[2024-06-23 06:18] LABS: HEMATOCRIT. 28.5 % (42.0-52.0); HEMOGLOBIN. 9.4 g/dL (14.0-18.0); MEAN PLATELET VOLUME 7.1 fl (7.4-10.4); PLATELET 519 x1000/uL (130-400); RED BLOOD CELL COUNT 3.45 mill/uL (4.7-6.1); RED CELL DISTRIBUTION WIDTH 20.8 % (11.6-14.6)
[2024-06-23 06:47] LABS: CREATININE 0.4 mg/dL (0.6-1.3); UREA NITROGEN BLOOD 12 mg/dL (9-23)
[2024-06-23 12:04] LABS: EOSINOPHILS % MANUAL 33.0 % (0.0-5.0); LYMPHOCYTES % MANUAL 30.0 % (20.0-50.0); MONOCYTES % MANUAL 9.0 % (2.0-8.0); NEUTROPHILS % MANUAL 28.0 % (45.0-75.0)
[2024-06-23 12:05] LABS: PLATELET ESTIMATE INCREASED
[2024-06-24] VITALS (13 sets, daily range): BP systolic 94–117; BP diastolic 59–75; PULSE 113–132; RESP 19–34; TEMP 36.6–36.9; O2SAT 95–99
[2024-06-24] MEDS: IPRATROPIUM/ALBUTEROL 0.5-3(2.5)MG/3ML NEB HHN SCH (23:38)
[2024-06-25] VITALS (17 sets, daily range): BP systolic 98–125; BP diastolic 62–81; PULSE 109–123; RESP 16–40; TEMP 36.9–37.4; O2SAT 93–100
[2024-06-25] MEDS: POTASSIUM CHLORIDE 20MEQ TABLET SR PO SCH (09:57)
[2024-06-25] MEDS: PANTOT AC/MIN OIL/PET HY-PHL OINT (AQUAPHOR) TOP SCH (17:14)
[2024-06-26] VITALS (17 sets, daily range): BP systolic 94–114; BP diastolic 57–100; PULSE 110–132; RESP 17–30; TEMP 36.2–37; O2SAT 74–99
[2024-06-26] MEDS ORDERED: NALOXONE HCL 0.4MG/ML 1ML VIAL IV PRN (16:15)
[2024-06-26] MEDS: HYDROCODONE/ACETAMINOPHEN 5/325MG TABLET PO PRN (16:21)
[2024-06-27] VITALS (18 sets, daily range): BP systolic 88–124; BP diastolic 51–101; PULSE 106–130; RESP 15–34; TEMP 36.8–37.9; O2SAT 92–100
[2024-06-28] VITALS (16 sets, daily range): BP systolic 82–150; BP diastolic 41–71; PULSE 110–136; RESP 18–37; TEMP 36.8–37.2; O2SAT 77–98
[2024-06-28] MEDS: IPRATROPIUM BROMIDE (0.02%) 0.5MG/2.5ML NEB HHN PRN (15:18)
[2024-06-29] VITALS (18 sets, daily range): BP systolic 85–147; BP diastolic 45–124; PULSE 109–130; RESP 15–33; TEMP 36.7–37.2; O2SAT 87–100
[2024-06-29] MEDS: ENOXAPARIN 40MG/0.4ML SYR SUBCUT SCH (15:17)
[2024-06-30] VITALS (17 sets, daily range): BP systolic 71–117; BP diastolic 43–106; PULSE 113–137; RESP 14–47; TEMP 36.8–37.3; O2SAT 91–100
[2024-06-30] MEDS: MIDODRINE HCL 5MG TABLET PO SCH (13:30)
[2024-07-01] VITALS (12 sets, daily range): BP systolic 89–117; BP diastolic 60–99; PULSE 109–128; RESP 14–35; TEMP 36.3–37.3; O2SAT 83–100
[2024-07-01 07:05] LABS: CREATININE 0.5 mg/dL (0.6-1.3)
[2024-07-01 07:06] LABS: UREA NITROGEN BLOOD 14 mg/dL (9-23)
[2024-07-01 07:07] LABS: HEMATOCRIT. 32.5 % (42.0-52.0); HEMOGLOBIN. 10.5 g/dL (14.0-18.0); MEAN PLATELET VOLUME 7.4 fl (7.4-10.4); PLATELET 437 x1000/uL (130-400); RED BLOOD CELL COUNT 3.80 mill/uL (4.7-6.1); RED CELL DISTRIBUTION WIDTH 20.6 % (11.6-14.6)
[2024-07-01 11:54] LABS: EOSINOPHILS % MANUAL 28.0 % (0.0-5.0); LYMPHOCYTES % MANUAL 27.0 % (20.0-50.0); MONOCYTES % MANUAL 8.0 % (2.0-8.0); NEUTROPHILS % MANUAL 37.0 % (45.0-75.0); PLATELET ESTIMATE INCREASED
[2024-07-01] MEDS: MAGNESIUM 2 G PREMIX 50 ML IV SCH (13:22)
[2024-07-02] VITALS (14 sets, daily range): BP systolic 90–110; BP diastolic 44–76; PULSE 101–132; RESP 17–39; TEMP 36.8–37.3; O2SAT 91–100
[2024-07-02 10:02] LABS: PLATELET 407 x1000/uL (130-400); RED BLOOD CELL COUNT 3.24 mill/uL (4.7-6.1); RED CELL DISTRIBUTION WIDTH 21.1 % (11.6-14.6)
[2024-07-02 10:38] LABS: CREATININE 0.4 mg/dL (0.6-1.3)
[2024-07-02 10:39] LABS: UREA NITROGEN BLOOD 11 mg/dL (9-23)
[2024-07-03 04:00] VITALS: BP 104/53; PULSE 113; RESP 18; TEMP 36.3; O2SAT 99
[2024-07-03 08:00] VITALS: BP 91/49; PULSE 51; RESP 16; TEMP 35.6; O2SAT 99
[2024-07-03 12:00] VITALS: BP 112/46; PULSE 70; RESP 16; TEMP 36.2; O2SAT 100; O2SAT 99
[2024-07-03 16:00] VITALS: BP 108/49; PULSE 69; RESP 16; TEMP 36.4; O2SAT 97
[2024-07-03 20:00] VITALS: BP 107/43; PULSE 111; RESP 18; TEMP 36.4; O2SAT 97
[2024-07-04] VITALS: BP 115/50; PULSE 113; RESP 19; TEMP 36.5; O2SAT 98
[2024-07-04 04:00] VITALS: BP 139/50; PULSE 116; RESP 19; TEMP 36.6; O2SAT 100
[2024-07-04 08:00] VITALS: BP 89/47; PULSE 57; RESP 16; TEMP 36.4; O2SAT 98
[2024-07-04 10:29] LABS: HEMATOCRIT. 30.5 % (42.0-52.0); HEMOGLOBIN. 9.6 g/dL (14.0-18.0); MEAN PLATELET VOLUME 7.1 fl (7.4-10.4); PLATELET 338 x1000/uL (130-400); RED BLOOD CELL COUNT 3.49 mill/uL (4.7-6.1); RED CELL DISTRIBUTION WIDTH 20.0 % (11.6-14.6)
[2024-07-04 10:45] LABS: CREATININE 0.5 mg/dL (0.6-1.3); UREA NITROGEN BLOOD 9 mg/dL (9-23)
[2024-07-04 11:40] LABS: EOSINOPHILS % MANUAL 20.0 % (0.0-5.0); LYMPHOCYTES % MANUAL 24.0 % (20.0-50.0); MONOCYTES % MANUAL 5.0 % (2.0-8.0); NEUTROPHILS % MANUAL 51.0 % (45.0-75.0)
[2024-07-04 11:41] LABS: PLATELET ESTIMATE NORMAL
[2024-07-04 12:00] VITALS: BP_SYST 119; BP_SYST 94; BP_DIAS 50; BP_DIAS 61; PULSE 64; PULSE 80; RESP 16; TEMP 36.2; O2SAT 96; O2SAT 97
[2024-07-04 16:00] VITALS: BP 100/54; PULSE 80; RESP 16; TEMP 36.2; O2SAT 80
[2024-07-04 20:00] VITALS: BP 90/45; PULSE 113; RESP 20; TEMP 36.7; O2SAT 100
[2024-07-05] VITALS: BP 91/36; PULSE 113; RESP 20; TEMP 36.9; O2SAT 97
[2024-07-05 07:55] LABS: CREATININE 0.4 mg/dL (0.6-1.3); UREA NITROGEN BLOOD 10 mg/dL (9-23)
[2024-07-05 08:00] VITALS: BP 98/51; PULSE 114; RESP 18; TEMP 36.2; O2SAT 98
[2024-07-05 08:12] LABS: HEMATOCRIT. 29.5 % (42.0-52.0); HEMOGLOBIN. 9.4 g/dL (14.0-18.0); MEAN PLATELET VOLUME 7.5 fl (7.4-10.4); PLATELET 399 x1000/uL (130-400); RED BLOOD CELL COUNT 3.46 mill/uL (4.7-6.1); RED CELL DISTRIBUTION WIDTH 20.5 % (11.6-14.6)
[2024-07-05 12:00] VITALS: BP 100/53; PULSE 122; RESP 18; TEMP 36.4; O2SAT 99
[2024-07-05 12:18] LABS: BAND% 1.0 % (1.0-6.0); EOSINOPHILS % MANUAL 15.0 % (0.0-5.0); LYMPHOCYTES % MANUAL 29.0 % (20.0-50.0); MONOCYTES % MANUAL 9.0 % (2.0-8.0); NEUTROPHILS % MANUAL 46.0 % (45.0-75.0); PLATELET ESTIMATE NORMAL
[2024-07-05 16:00] VITALS: BP 106/56; PULSE 104; TEMP 35.6; O2SAT 95
[2024-07-05 20:00] VITALS: BP 106/56; PULSE 107; RESP 19; TEMP 36.7; O2SAT 98
[2024-07-05] MEDS: LIDOCAINE HCL 1% 10 MG/ML 10ML VIAL ONE ×2 (21:13)
[2024-07-06] VITALS (7 sets, daily range): BP systolic 102–114; BP diastolic 50–61; PULSE 109–119; RESP 18–20; TEMP 35.8–36.7; O2SAT 97–99
[2024-07-07] VITALS: BP 98/38; PULSE 115; RESP 20; TEMP 36.2; O2SAT 97
[2024-07-07 04:00] VITALS: BP 97/47; PULSE 117; RESP 20; TEMP 36.1; O2SAT 94
[2024-07-07 08:00] VITALS: BP 101/66; PULSE 78; RESP 17; TEMP 37.1; O2SAT 98
[2024-07-07 16:00] VITALS: BP 122/52; PULSE 105; RESP 20; TEMP 36.4; O2SAT 97
[2024-07-07 20:00] VITALS: BP 100/53; PULSE 119; RESP 17; TEMP 36.2; O2SAT 95
[2024-07-08] VITALS (8 sets, daily range): BP systolic 87–100; BP diastolic 41–55; PULSE 98–121; RESP 14–22; TEMP 36.1–36.7; O2SAT 93–100
[2024-07-08] MEDS ORDERED: DIPHENHYDRAMINE 25MG CAPSULE PO PRN (05:09)
[2024-07-09] VITALS: BP 100/46; PULSE 110; RESP 18; TEMP 36.8; O2SAT 100
[2024-07-09 04:00] VITALS: BP 95/48; PULSE 114; RESP 20; TEMP 36.2; O2SAT 99
[2024-07-09 08:00] VITALS: BP 100/56; PULSE 110; RESP 19; TEMP 36.5; O2SAT 100
[2024-07-09 12:00] VITALS: BP 96/61; PULSE 104; RESP 18; TEMP 36.3; O2SAT 99
[2024-07-09 16:00] VITALS: BP 104/63; PULSE 110; RESP 20; TEMP 36.4; O2SAT 99
[2024-07-09 20:00] VITALS: BP 118/54; PULSE 118; RESP 16; TEMP 36.8; O2SAT 96
[2024-07-09] MEDS: OXYBUTYNIN CHLORIDE 5MG TABLET PO SCH (22:01)
[2024-07-10] VITALS: BP 142/72; PULSE 110; RESP 18; TEMP 36.8; O2SAT 100
[2024-07-10 04:00] VITALS: BP 122/63; PULSE 89; RESP 16; TEMP 36.3; O2SAT 98
[2024-07-10 08:00] VITALS: BP 113/65; PULSE 22; RESP 22; TEMP 36.8; O2SAT 100
[2024-07-10 12:00] VITALS: BP 141/79; PULSE 102; RESP 20; TEMP 36.7; O2SAT 97
[2024-07-10 17:34] VITALS: BP 107/50; PULSE 121; RESP 21; TEMP 36.8; O2SAT 100
[2024-07-10 20:00] VITALS: BP 114/58; PULSE 113; RESP 18; TEMP 36.5; O2SAT 94
[2024-07-10 22:00] LABS: PHOSPHORUS 3.2 mg/dL (2.5-4.9)
[2024-07-11] VITALS: BP 106/55; PULSE 115; RESP 18; TEMP 36.6; O2SAT 96
[2024-07-11 04:00] VITALS: BP 112/61; PULSE 115; RESP 18; TEMP 36.5; O2SAT 99
[2024-07-11 08:00] VITALS: BP 100/49; PULSE 112; RESP 18; TEMP 36.7; O2SAT 100
[2024-07-11 09:49] LABS: BASOPHILS % 0.6 % (0.0-2.0); EOSINOPHILS % 14.0 % (0.0-5.0); HEMATOCRIT. 29.5 % (42.0-52.0); HEMOGLOBIN. 9.5 g/dL (14.0-18.0); LYMPHOCYTES % 30.8 % (20.0-50.0); MEAN PLATELET VOLUME 7.2 fl (7.4-10.4); MONOCYTES % 9.5 % (2.0-8.0); NEUTROPHILS % 45.1 % (40.0-76.0); PLATELET 455 x1000/uL (130-400); RED BLOOD CELL COUNT 3.47 mill/uL (4.7-6.1); RED CELL DISTRIBUTION WIDTH 19.0 % (11.6-14.6)
[2024-07-11] MEDS: MAGNESIUM 2 G PREMIX 50 ML IV NR (10:07)
[2024-07-11 10:08] LABS: CREATININE 0.4 mg/dL (0.6-1.3); UREA NITROGEN BLOOD 9 mg/dL (9-23)
[2024-07-11 12:00] VITALS: BP 106/59; PULSE 112; RESP 18; TEMP 36.8; O2SAT 100
[2024-07-11 16:00] VITALS: BP 101/55; PULSE 106; RESP 18; TEMP 36.9; O2SAT 95
[2024-07-11] MEDS: CHLORHEXIDINE GLUCONATE 4% EXTERNAL USE TOP SCH (16:36)
[2024-07-11 20:00] VITALS: BP 106/53; PULSE 102; RESP 20; TEMP 37.3; O2SAT 95
[2024-07-11] MEDS: ENOXAPARIN 40MG/0.4ML SYR SUBCUT SCH (21:38)
[2024-07-12] VITALS: BP 98/43; PULSE 109; RESP 19; TEMP 37.3; O2SAT 100
[2024-07-12 04:00] VITALS: BP 110/56; PULSE 107; RESP 18; TEMP 36.6; O2SAT 98
[2024-07-12 08:00] VITALS: BP 96/52; PULSE 120; RESP 18; TEMP 36.1; O2SAT 95
[2024-07-12 12:00] VITALS: BP 102/49; PULSE 112; RESP 18; TEMP 36.5; O2SAT 95
[2024-07-12 16:00] VITALS: BP 124/66; PULSE 104; RESP 18; TEMP 36.6; O2SAT 99
[2024-07-12 20:00] VITALS: BP 103/50; PULSE 112; RESP 19; TEMP 35.8; O2SAT 100
[2024-07-13] VITALS: BP 102/52; PULSE 108; RESP 19; TEMP 36.6; O2SAT 100
[2024-07-13 04:00] VITALS: BP 126/59; PULSE 104; RESP 19; TEMP 35.8; O2SAT 97
[2024-07-13 08:00] VITALS: BP 92/44; PULSE 117; RESP 22; TEMP 35.9; O2SAT 100
[2024-07-13 12:00] VITALS: BP 100/56; PULSE 110; RESP 22; TEMP 35.6; O2SAT 100
[2024-07-13 16:00] VITALS: BP 94/33; PULSE 112; RESP 23; TEMP 37; O2SAT 100
[2024-07-13 20:00] VITALS: BP 112/66; PULSE 98; RESP 20; TEMP 36.6; O2SAT 97
[2024-07-14] VITALS: BP 94/42; PULSE 72; RESP 16; TEMP 36.6; O2SAT 96
[2024-07-14 04:00] VITALS: BP 99/49; PULSE 16; RESP 16; TEMP 36.5; O2SAT 99
[2024-07-14 08:00] VITALS: BP 96/52; PULSE 125; RESP 22; TEMP 36.6; O2SAT 99
[2024-07-14 12:00] VITALS: BP 111/41; PULSE 111; RESP 21; TEMP 36.7; O2SAT 100
[2024-07-14 20:00] VITALS: BP 101/45; RESP 18; TEMP 36.3; O2SAT 96
[2024-07-15] VITALS: BP 104/56; RESP 19; RESP 49; TEMP 36.3; O2SAT 95
[2024-07-15 04:00] VITALS: BP 99/45; RESP 19; TEMP 36.3; O2SAT 98
[2024-07-15 08:00] VITALS: BP 97/40; PULSE 97; RESP 16; TEMP 36.6; O2SAT 93
[2024-07-15 12:00] VITALS: BP 118/56; PULSE 113; RESP 20; TEMP 36.7; O2SAT 94
[2024-07-15 16:00] VITALS: BP 140/62; PULSE 103; RESP 18; TEMP 36.7; O2SAT 95
[2024-07-15 20:00] VITALS: BP 104/73; PULSE 102; RESP 20; TEMP 36.9; O2SAT 93
[2024-07-16] VITALS: BP 122/61; PULSE 106; RESP 20; TEMP 36.8; O2SAT 96
[2024-07-16 04:00] VITALS: BP 105/57; PULSE 102; RESP 20; TEMP 36.7; O2SAT 97
[2024-07-16 08:00] VITALS: BP 83/46; PULSE 115; RESP 16; TEMP 37.4; O2SAT 99
[2024-07-16 12:00] VITALS: BP 108/59; PULSE 94; RESP 18; TEMP 37.6; O2SAT 99
[2024-07-16 16:00] VITALS: BP 102/61; PULSE 97; RESP 17; TEMP 37.2; O2SAT 97
[2024-07-16 20:00] VITALS: BP 106/52; PULSE 113; RESP 18; TEMP 37.9; O2SAT 95
[2024-07-17] VITALS: BP 101/57; PULSE 78; RESP 18; TEMP 38.4; O2SAT 85
[2024-07-17 04:00] VITALS: BP 109/72; PULSE 113; RESP 18; TEMP 37.6; O2SAT 100
[2024-07-17 08:00] VITALS: BP 98/46; PULSE 120; RESP 17; TEMP 36.9; O2SAT 93
[2024-07-17 12:00] VITALS: BP 99/55; PULSE 116; RESP 20; TEMP 36.6; O2SAT 97
[2024-07-17 16:00] VITALS: BP 106/61; PULSE 116; RESP 18; TEMP 36.6; O2SAT 96
[2024-07-17 20:00] VITALS: BP 116/62; PULSE 108; RESP 20; TEMP 36.8; O2SAT 95
[2024-07-18] VITALS: BP 102/50; PULSE 111; RESP 20; TEMP 36.8; O2SAT 97
[2024-07-18 04:00] VITALS: BP 107/56; PULSE 113; RESP 20; TEMP 37; O2SAT 98
[2024-07-18 08:00] VITALS: BP 132/47; PULSE 117; RESP 20; TEMP 37.1; O2SAT 98
[2024-07-18 16:00] VITALS: BP 115/58; PULSE 98; RESP 19; TEMP 37.7; O2SAT 99
[2024-07-18 20:00] VITALS: BP 131/64; PULSE 119; RESP 20; TEMP 38.4; O2SAT 100
[2024-07-18] MEDS: ACETAMINOPHEN 325MG TABLET PO PRN (21:07)
[2024-07-18] MEDS: PIPERACILLIN/TAZO 3.375G/50ML 50 ML IV SCH (22:00)
[2024-07-18] MEDS: VANCOMYCIN 2GM PMX (XELLIA) 400 ML IV SCH (23:26)
[2024-07-18 23:28] LABS: BASOPHILS % 0.4 % (0.0-2.0); EOSINOPHILS % 14.5 % (0.0-5.0); HEMATOCRIT. 28.9 % (42.0-52.0); HEMOGLOBIN. 9.5 g/dL (14.0-18.0); LYMPHOCYTES % 27.5 % (20.0-50.0); MEAN PLATELET VOLUME 7.0 fl (7.4-10.4); MONOCYTES % 9.2 % (2.0-8.0); NEUTROPHILS % 48.4 % (40.0-76.0); PLATELET 459 x1000/uL (130-400); RED BLOOD CELL COUNT 3.38 mill/uL (4.7-6.1); RED CELL DISTRIBUTION WIDTH 18.5 % (11.6-14.6)
[2024-07-19] VITALS: BP 106/53; PULSE 111; RESP 20; TEMP 38.6; O2SAT 97
[2024-07-19 04:00] VITALS: BP_SYST 103; BP_SYST 106; BP_DIAS 55; BP_DIAS 63; PULSE 109; PULSE 58; RESP 18; RESP 20; TEMP 36.5; TEMP 37.1; O2SAT 100; O2SAT 95
[2024-07-19] MEDS ORDERED: VANCOMYCIN 1.5GM PMX (XELLIA) 300 ML IV SCH (06:00)
[2024-07-19 08:00] VITALS: BP 107/48; PULSE 59; RESP 18; TEMP 36.6; O2SAT 98
[2024-07-19] MEDS ORDERED: LIDOCAINE HCL 1% 10 MG/ML 10ML VIAL ONE (09:41)
[2024-07-19 11:25] LABS: HEMATOCRIT. 28.4 % (42.0-52.0); HEMOGLOBIN. 9.2 g/dL (14.0-18.0); MEAN PLATELET VOLUME 6.8 fl (7.4-10.4); PLATELET 420 x1000/uL (130-400); RED BLOOD CELL COUNT 3.32 mill/uL (4.7-6.1); RED CELL DISTRIBUTION WIDTH 18.5 % (11.6-14.6)
[2024-07-19] MEDS: VANCOMYCIN 1,750 MG in SODIUM CHLORIDE 0.9% 500 ML IV SCH (11:36)
[2024-07-19 11:39] LABS: CREATININE 0.3 mg/dL (0.6-1.3)
[2024-07-19 11:40] LABS: UREA NITROGEN BLOOD 6 mg/dL (9-23)
[2024-07-19 12:00] VITALS: BP 119/50; PULSE 110; RESP 19; TEMP 36.2; O2SAT 98
[2024-07-19 14:08] LABS: BAND% 7.0 % (1.0-6.0); EOSINOPHILS % MANUAL 15.0 % (0.0-5.0); LYMPHOCYTES % MANUAL 16.0 % (20.0-50.0); MONOCYTES % MANUAL 3.0 % (2.0-8.0); NEUTROPHILS % MANUAL 59.0 % (45.0-75.0); PLATELET ESTIMATE SLIGHTLY INCREASED
[2024-07-19 16:00] VITALS: BP 127/66; PULSE 110; RESP 19; TEMP 36.3; O2SAT 98
[2024-07-19 20:00] VITALS: BP 127/51; PULSE 89; RESP 19; TEMP 36.2; O2SAT 100
[2024-07-20] VITALS (7 sets, daily range): BP systolic 95–132; BP diastolic 38–61; PULSE 88–121; RESP 18–22; TEMP 36.1–37; O2SAT 95–99
[2024-07-20] MEDS: VANCOMYCIN 1,750 MG in SODIUM CHLORIDE 0.9% 500 ML IV SCH (07:02)
[2024-07-20 07:51] LABS: UREA NITROGEN BLOOD 7 mg/dL (9-23)
[2024-07-20 08:37] LABS: CREATININE 0.4 mg/dL (0.6-1.3)
[2024-07-20 11:37] LABS: HEMATOCRIT. 28.3 % (42.0-52.0); HEMOGLOBIN. 9.2 g/dL (14.0-18.0); MEAN PLATELET VOLUME 7.1 fl (7.4-10.4); PLATELET 369 x1000/uL (130-400); RED BLOOD CELL COUNT 3.31 mill/uL (4.7-6.1); RED CELL DISTRIBUTION WIDTH 18.6 % (11.6-14.6)
[2024-07-20 13:06] LABS: BAND% 3.0 % (1.0-6.0); EOSINOPHILS % MANUAL 14.0 % (0.0-5.0); LYMPHOCYTES % MANUAL 20.0 % (20.0-50.0); MONOCYTES % MANUAL 5.0 % (2.0-8.0); NEUTROPHILS % MANUAL 58.0 % (45.0-75.0)
[2024-07-20 13:07] LABS: PLATELET ESTIMATE NORMAL
[2024-07-21] VITALS: BP 94/40; PULSE 117; RESP 19; TEMP 37.3; O2SAT 97
[2024-07-21 04:00] VITALS: BP 99/27; PULSE 114; RESP 20; TEMP 36.6; O2SAT 96
[2024-07-21 08:00] VITALS: BP 104/48; PULSE 103; RESP 20; TEMP 36.5; O2SAT 100
[2024-07-21 12:00] VITALS: BP 97/78; PULSE 101; RESP 20; TEMP 36.6; O2SAT 100
[2024-07-21 16:00] VITALS: BP 103/52; PULSE 109; RESP 20; TEMP 36.7; O2SAT 100
[2024-07-21 20:00] VITALS: BP 86/41; PULSE 101; RESP 17; TEMP 36.3; O2SAT 95
[2024-07-22] VITALS: BP 89/43; PULSE 107; RESP 18; TEMP 36.4; O2SAT 98
[2024-07-22] MEDS: VANCOMYCIN 1.5GM PMX (XELLIA) 300 ML IV SCH (00:58)
[2024-07-22 04:00] VITALS: BP 90/38; PULSE 113; RESP 20; TEMP 36.4; O2SAT 99
[2024-07-22 06:12] VITALS: BP 90/38; PULSE 113; RESP 20; TEMP 36.4; O2SAT 99
[2024-07-22 12:38] VITALS: BP 120/47; PULSE 106; RESP 18; TEMP 37.2; O2SAT 97
[2024-07-22 17:00] VITALS: BP 112/57; PULSE 104; RESP 18; TEMP 37.2; O2SAT 97
[2024-07-22 20:00] VITALS: BP 101/68; PULSE 115; RESP 19; TEMP 36.3; O2SAT 98
[2024-07-22 20:25] LABS: CREATININE 0.4 mg/dL (0.6-1.3); UREA NITROGEN BLOOD 5 mg/dL (9-23)
[2024-07-23] VITALS: BP 107/60; PULSE 109; RESP 19; TEMP 36.2; O2SAT 94
[2024-07-23 04:00] VITALS: BP 100/54; PULSE 107; RESP 19; TEMP 35.9; O2SAT 95
[2024-07-23 08:00] VITALS: BP 108/57; PULSE 112; RESP 22; TEMP 36.7; O2SAT 95
[2024-07-23 12:00] VITALS: BP 103/53; PULSE 107; RESP 23; TEMP 36.8; O2SAT 99
[2024-07-23 16:00] VITALS: BP 99/38; PULSE 110; RESP 23; TEMP 36.4; O2SAT 95
[2024-07-23 20:00] VITALS: BP 120/53; PULSE 107; RESP 19; TEMP 36.5; O2SAT 96
[2024-07-24] VITALS: BP 121/51; PULSE 103; RESP 19; TEMP 36.2; O2SAT 97
[2024-07-24 04:00] VITALS: BP 115/67; PULSE 103; RESP 19; TEMP 36.6; O2SAT 93
[2024-07-24 08:00] VITALS: BP 123/58; PULSE 111; RESP 22; TEMP 36.3; O2SAT 99
[2024-07-24 12:00] VITALS: BP 114/55; PULSE 113; RESP 22; TEMP 36.7; O2SAT 99
[2024-07-24 16:00] VITALS: BP 95/46; PULSE 108; RESP 20; TEMP 37; O2SAT 99
[2024-07-24 20:00] VITALS: BP 109/65; PULSE 111; RESP 16; TEMP 36.1; O2SAT 99
[2024-07-25] VITALS: BP 109/65; PULSE 111; RESP 19; TEMP 36.1; O2SAT 99
[2024-07-25 04:00] VITALS: BP 98/55; RESP 18; TEMP 35.7; O2SAT 98
[2024-07-25 08:00] VITALS: BP 96/51; PULSE 118; RESP 23; TEMP 36.4; O2SAT 97
[2024-07-25 12:00] VITALS: BP 108/54; PULSE 111; RESP 23; TEMP 35.6; O2SAT 100
[2024-07-25 16:00] VITALS: BP 105/51; PULSE 108; RESP 22; TEMP 36.7; O2SAT 98
[2024-07-25 20:00] VITALS: BP 118/53; PULSE 109; RESP 18; TEMP 36.9; O2SAT 100
[2024-07-26 04:00] VITALS: BP 112/55; PULSE 115; RESP 18; TEMP 36.7; O2SAT 100
[2024-07-26 08:00] VITALS: BP 100/49; PULSE 119; RESP 21; TEMP 36.3; O2SAT 97
[2024-07-26 12:00] VITALS: BP 101/49; PULSE 116; RESP 21; TEMP 36.2; O2SAT 99
[2024-07-26 16:00] VITALS: BP 95/46; PULSE 108; RESP 21; TEMP 36.2; O2SAT 98
[2024-07-26 20:00] VITALS: BP 120/54; PULSE 108; RESP 19; TEMP 36.9; O2SAT 98
[2024-07-27] VITALS: BP 98/40; PULSE 110; RESP 18; TEMP 36.6; O2SAT 98
[2024-07-27 04:00] VITALS: BP 95/49; PULSE 108; RESP 18; TEMP 36.3; O2SAT 98
[2024-07-27 08:00] VITALS: BP 109/45; PULSE 117; RESP 18; TEMP 36.5
[2024-07-27 12:00] VITALS: BP 113/51; PULSE 103; RESP 20; TEMP 36.7; O2SAT 98
[2024-07-27 16:00] VITALS: BP 115/51; RESP 20; TEMP 36.8
[2024-07-27 20:00] VITALS: BP 115/53; PULSE 106; RESP 19; TEMP 36.1; O2SAT 94
[2024-07-28] VITALS: BP 115/53; PULSE 107; RESP 20; TEMP 36.6; O2SAT 95
[2024-07-28 04:00] VITALS: BP 104/57; PULSE 71; RESP 20; TEMP 35.6; O2SAT 95
[2024-07-28 08:00] VITALS: BP 94/55; PULSE 107; RESP 20; TEMP 37; O2SAT 99
[2024-07-28 12:00] VITALS: BP 98/45; PULSE 104; RESP 20; TEMP 37.2; O2SAT 99
[2024-07-28 18:01] VITALS: BP 97/34; PULSE 100; RESP 20; TEMP 36.7; O2SAT 99
[2024-07-28] MEDS: MIDODRINE HCL 5MG TABLET PO SCH (18:49)
[2024-07-28 20:00] VITALS: BP 105/51; PULSE 109; RESP 18; TEMP 36.7; O2SAT 100
[2024-07-29] VITALS: BP 128/74; PULSE 108; RESP 18; TEMP 36.8; O2SAT 100
[2024-07-29 04:00] VITALS: BP 97/51; PULSE 100; RESP 18; TEMP 36.7; O2SAT 100
[2024-07-29 08:00] VITALS: BP 91/51; PULSE 116; RESP 18; TEMP 37.9; O2SAT 94
[2024-07-29 12:00] VITALS: BP 105/51; PULSE 111; RESP 18; TEMP 37.9; O2SAT 96
[2024-07-29 16:00] VITALS: BP 95/57; PULSE 103; RESP 18; TEMP 38.3; O2SAT 100
[2024-07-29] MEDS: LEVOFLOXACIN 250MG TABLET PO SCH (18:41)
[2024-07-29 20:00] VITALS: BP 113/96; PULSE 106; RESP 19; TEMP 37.4; O2SAT 97
[2024-07-29 22:00] LABS: BASOPHILS % 0.6 % (0.0-2.0); EOSINOPHILS % 18.9 % (0.0-5.0); HEMATOCRIT. 28.8 % (42.0-52.0); HEMOGLOBIN. 9.4 g/dL (14.0-18.0); LYMPHOCYTES % 29.9 % (20.0-50.0); MEAN PLATELET VOLUME 7.2 fl (7.4-10.4); MONOCYTES % 9.4 % (2.0-8.0); NEUTROPHILS % 41.2 % (40.0-76.0); PLATELET 297 x1000/uL (130-400); RED BLOOD CELL COUNT 3.35 mill/uL (4.7-6.1); RED CELL DISTRIBUTION WIDTH 17.8 % (11.6-14.6)
[2024-07-29 22:17] LABS: CREATININE 0.4 mg/dL (0.6-1.3); UREA NITROGEN BLOOD < 5 mg/dL (9-23)
[2024-07-30] VITALS: BP 113/95; PULSE 100; RESP 17; TEMP 36.6; O2SAT 98
[2024-07-30 04:00] VITALS: BP 101/50; PULSE 106; RESP 19; TEMP 36.6; O2SAT 97
[2024-07-30 08:00] VITALS: BP 97/50; PULSE 119; RESP 24; TEMP 37.5; O2SAT 98
[2024-07-30] MEDS: POTASSIUM CHLORIDE 20MEQ TABLET SR PO SCH (09:08)
[2024-07-30 10:19] LABS: BASOPHILS % 0.3 % (0.0-2.0); EOSINOPHILS % 12.5 % (0.0-5.0); HEMATOCRIT. 30.2 % (42.0-52.0); HEMOGLOBIN. 9.5 g/dL (14.0-18.0); LYMPHOCYTES % 23.3 % (20.0-50.0); MEAN PLATELET VOLUME 7.0 fl (7.4-10.4); MONOCYTES % 13.6 % (2.0-8.0); NEUTROPHILS % 50.3 % (40.0-76.0); PLATELET 432 x1000/uL (130-400); RED BLOOD CELL COUNT 3.42 mill/uL (4.7-6.1); RED CELL DISTRIBUTION WIDTH 18.0 % (11.6-14.6)
[2024-07-30 10:46] LABS: CREATININE 0.4 mg/dL (0.6-1.3); UREA NITROGEN BLOOD < 5 mg/dL (9-23)
[2024-07-30 12:00] VITALS: BP 98/57; PULSE 115; RESP 23; TEMP 36.7
[2024-07-30] MEDS: ENOXAPARIN 40MG/0.4ML SYR SUBCUT SCH (13:17)
[2024-07-30 16:00] VITALS: BP 97/52; PULSE 106; RESP 24; TEMP 37.7; O2SAT 96
[2024-07-30 20:00] VITALS: BP 92/46; PULSE 110; RESP 19; TEMP 36.7; O2SAT 96
[2024-07-31] VITALS: BP 115/51; PULSE 108; RESP 19; TEMP 36.6; O2SAT 97
[2024-07-31 04:00] VITALS: BP 97/50; PULSE 112; RESP 20; TEMP 37.2; O2SAT 98
[2024-07-31 08:00] VITALS: BP 148/86; PULSE 94; RESP 22; TEMP 37.2; O2SAT 96
[2024-07-31] MEDS: SEMAGLUTIDE SQ SCH (09:07)
[2024-07-31 12:03] VITALS: BP 104/53; PULSE 113; RESP 20; TEMP 37; O2SAT 95
[2024-07-31 16:00] VITALS: BP 110/68; PULSE 76; RESP 22; TEMP 36.3; O2SAT 96
[2024-07-31 19:25] LABS: HEMATOCRIT. 31.8 % (42.0-52.0); HEMOGLOBIN. 10.1 g/dL (14.0-18.0); MEAN PLATELET VOLUME 6.5 fl (7.4-10.4); PLATELET 421 x1000/uL (130-400); RED BLOOD CELL COUNT 3.68 mill/uL (4.7-6.1); RED CELL DISTRIBUTION WIDTH 17.9 % (11.6-14.6)
[2024-07-31 19:39] LABS: CREATININE 0.3 mg/dL (0.6-1.3)
[2024-07-31 19:40] LABS: UREA NITROGEN BLOOD < 5 mg/dL (9-23)
[2024-07-31 20:00] VITALS: BP 114/51; PULSE 112; RESP 17; TEMP 36.7; O2SAT 96
[2024-07-31 20:32] LABS: BAND% 1.0 % (1.0-6.0); EOSINOPHILS % MANUAL 17.0 % (0.0-5.0); LYMPHOCYTES % MANUAL 31.0 % (20.0-50.0); MONOCYTES % MANUAL 13.0 % (2.0-8.0); NEUTROPHILS % MANUAL 38.0 % (45.0-75.0); PLATELET ESTIMATE INCREASED
[2024-08-01] VITALS: BP 105/50; PULSE 113; RESP 17; TEMP 36.6; O2SAT 98
[2024-08-01 04:00] VITALS: BP 111/54; PULSE 117; RESP 17; TEMP 37.1; O2SAT 95
[2024-08-01 06:56] LABS: UREA NITROGEN BLOOD 5 mg/dL (9-23)
[2024-08-01 07:00] LABS: HEMATOCRIT. 30.8 % (42.0-52.0); HEMOGLOBIN. 9.7 g/dL (14.0-18.0); MEAN PLATELET VOLUME 6.8 fl (7.4-10.4); PLATELET 411 x1000/uL (130-400); RED BLOOD CELL COUNT 3.53 mill/uL (4.7-6.1); RED CELL DISTRIBUTION WIDTH 17.4 % (11.6-14.6)
[2024-08-01 07:09] LABS: CREATININE 0.4 mg/dL (0.6-1.3)
[2024-08-01 08:00] VITALS: BP 107/59; PULSE 113; RESP 20; TEMP 36.1; O2SAT 96
[2024-08-01 12:00] VITALS: BP 101/47; PULSE 113; RESP 21; TEMP 36.2
[2024-08-01 13:39] LABS: EOSINOPHILS % MANUAL 19.0 % (0.0-5.0); LYMPHOCYTES % MANUAL 31.0 % (20.0-50.0); MONOCYTES % MANUAL 10.0 % (2.0-8.0); NEUTROPHILS % MANUAL 40.0 % (45.0-75.0)
[2024-08-01 13:40] LABS: PLATELET ESTIMATE SLIGHTLY INCREASED
[2024-08-01 16:00] VITALS: BP 136/70; PULSE 107; RESP 22; TEMP 36.4; O2SAT 94
[2024-08-01 20:00] VITALS: BP 113/53; PULSE 113; RESP 19; TEMP 36.2; O2SAT 97
[2024-08-02] VITALS: BP 115/55; PULSE 112; RESP 19; TEMP 36.2; O2SAT 99
[2024-08-02 04:00] VITALS: BP 114/61; PULSE 113; RESP 19; TEMP 36.2; O2SAT 91
[2024-08-02 08:00] VITALS: BP 108/55; PULSE 113; RESP 17; TEMP 36.8; O2SAT 95
[2024-08-02 12:00] VITALS: BP 103/43; PULSE 110; RESP 17; TEMP 36.9; O2SAT 96
[2024-08-02 16:00] VITALS: BP 122/69; PULSE 103; RESP 19; TEMP 36.4; O2SAT 95
[2024-08-02 20:00] VITALS: BP 95/47; PULSE 109; RESP 18; TEMP 36.4; O2SAT 96
[2024-08-03] VITALS: BP 95/38; PULSE 115; RESP 19; TEMP 37.1; O2SAT 96
[2024-08-03 04:00] VITALS: BP 98/52; PULSE 112; RESP 18; TEMP 36.8; O2SAT 97
[2024-08-03 08:00] VITALS: BP 129/81; PULSE 95; RESP 17; TEMP 36.7; O2SAT 98
[2024-08-03 12:00] VITALS: BP 115/52; PULSE 111; RESP 17; TEMP 36.6; O2SAT 96
[2024-08-03 16:00] VITALS: BP 104/51; PULSE 108; RESP 17; RESP 18; TEMP 36.4; O2SAT 96; O2SAT 98
[2024-08-03 20:00] VITALS: BP 111/53; PULSE 111; RESP 18; TEMP 36.8; O2SAT 99
[2024-08-04] VITALS: BP 97/41; PULSE 120; RESP 18; TEMP 36.5; O2SAT 96
[2024-08-04 04:00] VITALS: BP 108/71; PULSE 67; RESP 18; TEMP 36.4; O2SAT 95
[2024-08-04 08:00] VITALS: BP 104/57; PULSE 111; RESP 22; TEMP 37; O2SAT 100
[2024-08-04 12:00] VITALS: BP 98/46; PULSE 104; RESP 22; TEMP 37.2; O2SAT 98
[2024-08-04 16:00] VITALS: BP 100/56; PULSE 111; RESP 20; TEMP 36.8; O2SAT 100
[2024-08-04 20:00] VITALS: BP 117/53; PULSE 115; RESP 18; TEMP 36.1; O2SAT 97
[2024-08-05] VITALS: BP 109/52; PULSE 112; RESP 18; TEMP 36.9; O2SAT 99
[2024-08-05 04:00] VITALS: BP 122/66; PULSE 114; RESP 18; TEMP 36.7; O2SAT 97
[2024-08-05 08:00] VITALS: BP 116/56; PULSE 109; RESP 18; TEMP 36.4; O2SAT 98
[2024-08-05 12:00] VITALS: BP 117/95; PULSE 104; RESP 18; TEMP 37.6; O2SAT 95
[2024-08-05 14:56] LABS: CREATININE 0.4 mg/dL (0.6-1.3); UREA NITROGEN BLOOD 7 mg/dL (9-23)
[2024-08-05 14:58] LABS: PHOSPHORUS 3.2 mg/dL (2.5-4.9)
[2024-08-05 16:00] VITALS: BP 104/60; PULSE 108; RESP 18; TEMP 37.5; O2SAT 95
[2024-08-05 17:11] LABS: BASOPHILS % 0.4 % (0.0-2.0); EOSINOPHILS % 15.2 % (0.0-5.0); HEMATOCRIT. 31.4 % (42.0-52.0); HEMOGLOBIN. 10.2 g/dL (14.0-18.0); LYMPHOCYTES % 34.8 % (20.0-50.0); MEAN PLATELET VOLUME 6.5 fl (7.4-10.4); MONOCYTES % 12.6 % (2.0-8.0); NEUTROPHILS % 37.0 % (40.0-76.0); PLATELET 465 x1000/uL (130-400); RED BLOOD CELL COUNT 3.60 mill/uL (4.7-6.1); RED CELL DISTRIBUTION WIDTH 17.8 % (11.6-14.6)
[2024-08-05] MEDS: MAGNESIUM OXIDE 400MG TABLET PO SCH (18:57)
[2024-08-05 20:00] VITALS: BP 135/58; PULSE 114; RESP 18; TEMP 36.6; O2SAT 99
[2024-08-06] VITALS: BP 134/57; PULSE 111; RESP 17; TEMP 36.4; O2SAT 97
[2024-08-06 04:00] VITALS: BP 114/55; PULSE 113; RESP 18; TEMP 36.4; O2SAT 95
[2024-08-06 08:00] VITALS: BP 98/44; PULSE 114; RESP 18; TEMP 36.4; O2SAT 98
[2024-08-06 12:00] VITALS: BP 117/54; PULSE 114; RESP 18; TEMP 37; O2SAT 100
[2024-08-06 16:00] VITALS: BP 123/53; PULSE 115; RESP 18; TEMP 36.4; O2SAT 99
[2024-08-06 20:00] VITALS: BP 113/57; PULSE 111; RESP 19; TEMP 36.3; O2SAT 99
[2024-08-07] VITALS: BP 118/52; PULSE 113; RESP 19; TEMP 36.3; O2SAT 93
[2024-08-07 04:00] VITALS: BP 113/57; PULSE 111; RESP 19; TEMP 36.3; O2SAT 99
[2024-08-07 08:00] VITALS: BP 104/46; PULSE 115; RESP 19; TEMP 36.5; O2SAT 93
[2024-08-07 12:00] VITALS: BP 116/60; PULSE 107; RESP 19; TEMP 37; O2SAT 98
[2024-08-07 16:00] VITALS: BP 116/55; PULSE 105; RESP 18; TEMP 36.9; O2SAT 98
[2024-08-07 20:00] VITALS: BP 121/62; PULSE 120; RESP 18; TEMP 36.2; O2SAT 95
[2024-08-08] VITALS: BP 125/52; PULSE 120; RESP 17; TEMP 36.3; O2SAT 95
[2024-08-08 04:00] VITALS: BP 103/58; PULSE 115; RESP 16; TEMP 36.2; O2SAT 96
[2024-08-08 08:00] VITALS: BP 94/49; PULSE 114; RESP 17; TEMP 36.4; O2SAT 95
[2024-08-08 12:00] VITALS: BP 106/50; PULSE 108; RESP 20; TEMP 36.5; O2SAT 95
[2024-08-08 16:00] VITALS: BP 118/68; PULSE 100; RESP 18; TEMP 36.3; O2SAT 95
[2024-08-08 20:00] VITALS: BP 109/40; PULSE 110; RESP 18; TEMP 37.2; O2SAT 95
[2024-08-09] VITALS: BP 109/45; PULSE 107; RESP 18; TEMP 37.2; O2SAT 94
[2024-08-09 04:00] VITALS: BP 116/47; PULSE 106; RESP 18; TEMP 36.7; O2SAT 97
[2024-08-09 08:00] VITALS: BP 117/60; PULSE 109; RESP 18; TEMP 37.4; O2SAT 97
[2024-08-09 12:00] VITALS: BP 98/55; PULSE 107; RESP 18; TEMP 37.5; O2SAT 96
[2024-08-09 16:00] VITALS: BP 106/60; PULSE 104; RESP 18; TEMP 37.6; O2SAT 100
[2024-08-09 20:00] VITALS: BP 110/68; PULSE 105; RESP 18; TEMP 36.6; O2SAT 97
[2024-08-10] VITALS: BP 112/72; PULSE 105; RESP 18; TEMP 36.4; O2SAT 96
[2024-08-10 04:00] VITALS: BP 116/64; PULSE 108; RESP 18; TEMP 36.8; O2SAT 95
[2024-08-10 08:00] VITALS: BP 96/69; PULSE 117; RESP 22; TEMP 36.4; O2SAT 95
[2024-08-10 08:04] LABS: BASOPHILS % 0.3 % (0.0-2.0); EOSINOPHILS % 14.4 % (0.0-5.0); HEMATOCRIT. 31.2 % (42.0-52.0); HEMOGLOBIN. 10.1 g/dL (14.0-18.0); LYMPHOCYTES % 26.7 % (20.0-50.0); MEAN PLATELET VOLUME 7.3 fl (7.4-10.4); MONOCYTES % 11.1 % (2.0-8.0); NEUTROPHILS % 47.5 % (40.0-76.0); PLATELET 466 x1000/uL (130-400); RED BLOOD CELL COUNT 3.70 mill/uL (4.7-6.1); RED CELL DISTRIBUTION WIDTH 16.8 % (11.6-14.6)
[2024-08-10 08:25] LABS: CREATININE 0.3 mg/dL (0.6-1.3); UREA NITROGEN BLOOD < 5 mg/dL (9-23)
[2024-08-10 12:00] VITALS: BP 125/66; PULSE 95; RESP 17; TEMP 36.3; O2SAT 97
[2024-08-10 16:00] VITALS: BP 107/55; PULSE 67; RESP 18; TEMP 36.4; O2SAT 97
[2024-08-10 20:00] VITALS: BP 117/57; PULSE 113; RESP 18; TEMP 36.1; O2SAT 76
[2024-08-11] VITALS: BP 115/55; PULSE 110; RESP 19; TEMP 36.2; O2SAT 78
[2024-08-11 04:00] VITALS: BP 116/65; PULSE 108; RESP 19; TEMP 36.1; O2SAT 95
[2024-08-11 08:00] VITALS: BP 102/51; PULSE 113; RESP 16; TEMP 36.8; O2SAT 95
[2024-08-11 12:00] VITALS: BP 110/67; PULSE 108; RESP 19; TEMP 37; O2SAT 94
[2024-08-11 16:00] VITALS: BP 117/64; PULSE 115; RESP 18; TEMP 37.2; O2SAT 95
[2024-08-11 20:00] VITALS: BP 134/49; PULSE 107; RESP 18; TEMP 36.5; O2SAT 100
[2024-08-12] VITALS: BP 135/60; PULSE 110; RESP 18; TEMP 36.2; O2SAT 95
[2024-08-12 04:00] VITALS: BP 111/55; PULSE 112; RESP 18; TEMP 36.7; O2SAT 97
[2024-08-12 08:00] VITALS: BP 110/54; PULSE 116; RESP 18; TEMP 36.6; O2SAT 98
[2024-08-12 12:00] VITALS: BP 114/61; PULSE 108; RESP 18; TEMP 36.6; O2SAT 98
[2024-08-12 16:00] VITALS: BP 97/57; PULSE 104; RESP 17; TEMP 36.4; O2SAT 98
[2024-08-12 20:00] VITALS: BP 112/53; PULSE 105; RESP 18; TEMP 36.5; O2SAT 98
[2024-08-13] VITALS: BP 107/54; PULSE 100; RESP 19; TEMP 36.4; O2SAT 98
[2024-08-13 04:00] VITALS: BP 115/65; PULSE 113; RESP 18; TEMP 36.3; O2SAT 98
[2024-08-13 08:00] VITALS: BP 100/60; PULSE 112; RESP 20; TEMP 36.2; O2SAT 98
[2024-08-13 12:00] VITALS: BP 102/53; PULSE 102; RESP 18; TEMP 36.4; O2SAT 98
[2024-08-13] MEDS: ENOXAPARIN 40MG/0.4ML SYR SUBCUT SCH (14:24)
[2024-08-13 16:00] VITALS: BP 132/67; PULSE 125; RESP 18; TEMP 36.4; O2SAT 98
[2024-08-13 20:00] VITALS: BP 90/46; PULSE 125; RESP 18; TEMP 37; O2SAT 93
[2024-08-14] VITALS: BP 89/35; PULSE 116; RESP 18; TEMP 38.5; O2SAT 95
[2024-08-14] MEDS: MIDODRINE HCL 5MG TABLET PO SCH (00:59)
[2024-08-14 04:00] VITALS: BP 101/50; PULSE 105; RESP 18; TEMP 36.3; O2SAT 96
[2024-08-14 08:00] VITALS: BP 92/44; PULSE 109; RESP 17; TEMP 36.4; O2SAT 98
[2024-08-14 12:00] VITALS: BP 98/41; PULSE 102; RESP 18; TEMP 36.4; O2SAT 97
[2024-08-14 16:00] VITALS: BP 103/48; PULSE 101; RESP 17; TEMP 36.4; O2SAT 98
[2024-08-14 20:00] VITALS: BP 111/72; PULSE 102; RESP 18; TEMP 36.4; O2SAT 99
[2024-08-15] VITALS: BP 90/49; PULSE 106; RESP 18; TEMP 36.6; O2SAT 96
[2024-08-15 04:00] VITALS: BP 101/45; PULSE 117; RESP 18; TEMP 36.5; O2SAT 95
[2024-08-15 08:00] VITALS: BP 93/50; PULSE 114; RESP 20; TEMP 36.8; O2SAT 100
[2024-08-15 12:00] VITALS: BP 88/52; PULSE 111; RESP 20; TEMP 36.9; O2SAT 100
[2024-08-15 16:00] VITALS: BP 93/53; PULSE 105; RESP 20; TEMP 36.8; O2SAT 98
[2024-08-15 20:00] VITALS: BP 106/56; PULSE 106; RESP 20; TEMP 36.3; O2SAT 94
[2024-08-16] VITALS: BP 106/45; PULSE 111; RESP 18; TEMP 36.3; O2SAT 96
[2024-08-16 04:00] VITALS: BP 102/49; PULSE 107; RESP 18; TEMP 36.6; O2SAT 96
[2024-08-16 08:00] VITALS: BP 108/45; PULSE 108; RESP 20; TEMP 36.8; O2SAT 93
[2024-08-16 12:00] VITALS: BP 137/84; PULSE 110; RESP 21; TEMP 36.4; O2SAT 97
[2024-08-16 16:00] VITALS: BP 137/84; PULSE 106; RESP 21; TEMP 37.2; O2SAT 96
[2024-08-17 04:00] VITALS: BP 126/72; PULSE 66; RESP 18; TEMP 36.9
[2024-08-17 08:00] VITALS: BP 108/56; PULSE 111; RESP 20; TEMP 36.1; O2SAT 98
[2024-08-17 12:00] VITALS: BP 114/56; PULSE 112; RESP 19; TEMP 36.2; O2SAT 98
[2024-08-17 16:00] VITALS: BP 108/63; PULSE 105; RESP 19; TEMP 36.1; O2SAT 97
[2024-08-17 20:00] VITALS: BP 101/49; PULSE 107; RESP 20; TEMP 36.6; O2SAT 98
[2024-08-18] VITALS: BP 116/60; PULSE 113; RESP 20; TEMP 36.5; O2SAT 99
[2024-08-18 04:00] VITALS: BP 118/66; PULSE 110; RESP 20; TEMP 36.8; O2SAT 98
[2024-08-18 08:00] VITALS: BP 104/51; PULSE 110; RESP 22; TEMP 36.6; O2SAT 94
[2024-08-18 12:00] VITALS: BP 115/47; PULSE 116; RESP 21; TEMP 36.6; O2SAT 92
[2024-08-18 16:00] VITALS: BP 100/45; PULSE 107; RESP 20; TEMP 36.1; O2SAT 95
[2024-08-18 20:00] VITALS: BP 107/46; PULSE 104; RESP 19; TEMP 36.7; O2SAT 98
[2024-08-19 08:00] VITALS: BP 126/54; PULSE 114; RESP 18; TEMP 37; O2SAT 96
[2024-08-19 12:00] VITALS: BP 98/66; PULSE 115; RESP 18; TEMP 36.8; O2SAT 100
[2024-08-19 16:00] VITALS: BP 113/74; PULSE 110; RESP 18; TEMP 36.7; O2SAT 98
[2024-08-19 20:00] VITALS: BP 109/60; PULSE 113; RESP 19; TEMP 36.6; O2SAT 95
[2024-08-20] VITALS: BP 109/50; PULSE 109; PULSE 89; RESP 20; TEMP 37.1; O2SAT 97
[2024-08-20 04:00] VITALS: BP 114/53; PULSE 108; RESP 19; TEMP 36.6; O2SAT 96
[2024-08-20 08:00] VITALS: BP 100/52; PULSE 105; RESP 21; TEMP 36.5; O2SAT 95
[2024-08-20 12:00] VITALS: BP 108/58; PULSE 107; RESP 21; TEMP 36.1; O2SAT 95
[2024-08-20 16:00] VITALS: BP 118/59; PULSE 104; RESP 21; TEMP 36.4; O2SAT 96
[2024-08-21 08:00] VITALS: BP 116/51; PULSE 114; RESP 18; TEMP 35.3; O2SAT 98
[2024-08-21 12:00] VITALS: BP 107/49; RESP 20; TEMP 37.4
[2024-08-21 16:00] VITALS: BP 101/50; PULSE 109; RESP 20; TEMP 38.2; O2SAT 98
[2024-08-21] MEDS ORDERED: ACETAMINOPHEN 325MG TABLET PO PRN (19:45)
[2024-08-21 20:00] VITALS: BP 116/45; PULSE 108; RESP 19; TEMP 36.1
[2024-08-22] VITALS: BP 119/54; PULSE 114; RESP 19; TEMP 36.1; O2SAT 96
[2024-08-22 04:00] VITALS: BP 105/54; PULSE 92; RESP 18; TEMP 36.5; O2SAT 97
[2024-08-22 08:00] VITALS: BP 98/58; PULSE 117; RESP 23; TEMP 36.6; O2SAT 98
[2024-08-22 12:00] VITALS: BP 99/53; PULSE 117; RESP 23; TEMP 36.9; O2SAT 97
[2024-08-22 13:37] LABS: UREA NITROGEN BLOOD 5 mg/dL (9-23)
[2024-08-22 14:14] LABS: CREATININE 0.4 mg/dL (0.6-1.3)
[2024-08-22 16:00] VITALS: BP 108/53; PULSE 102; RESP 20; TEMP 36.8; O2SAT 96
[2024-08-22 20:00] VITALS: BP 124/55; PULSE 111; RESP 20; TEMP 36.9; O2SAT 100
[2024-08-23] VITALS: BP 130/49; PULSE 110; RESP 20; TEMP 37.7; O2SAT 100
[2024-08-23 04:00] VITALS: BP 91/49; PULSE 111; RESP 18; TEMP 37.4; O2SAT 100
[2024-08-23 08:00] VITALS: BP 81/38; PULSE 115; RESP 22; TEMP 37.1; O2SAT 98
[2024-08-23 12:00] VITALS: BP 88/31; PULSE 110; RESP 23; TEMP 36.9; O2SAT 99
[2024-08-23 16:00] VITALS: BP 89/36; PULSE 103; RESP 20; TEMP 35.7; O2SAT 99
[2024-08-23 18:45] LABS: BASOPHILS % 0.3 % (0.0-2.0); EOSINOPHILS % 4.4 % (0.0-5.0); HEMATOCRIT. 32.1 % (42.0-52.0); HEMOGLOBIN. 10.4 g/dL (14.0-18.0); LYMPHOCYTES % 21.8 % (20.0-50.0); MEAN PLATELET VOLUME 7.1 fl (7.4-10.4); MONOCYTES % 10.1 % (2.0-8.0); NEUTROPHILS % 63.4 % (40.0-76.0); PLATELET 411 x1000/uL (130-400); RED BLOOD CELL COUNT 3.80 mill/uL (4.7-6.1); RED CELL DISTRIBUTION WIDTH 15.9 % (11.6-14.6)
[2024-08-23 18:52] LABS: CREATININE 0.4 mg/dL (0.6-1.3); UREA NITROGEN BLOOD < 5 mg/dL (9-23)
[2024-08-24] VITALS: PULSE 120; RESP 18; TEMP 36.7; O2SAT 100
[2024-08-24 04:00] VITALS: BP 133/74; PULSE 86; RESP 18; TEMP 36.3; O2SAT 100
[2024-08-24 08:00] VITALS: BP 91/44; PULSE 115; RESP 21; TEMP 37.2; O2SAT 97
[2024-08-24 12:00] VITALS: BP 91/42; PULSE 111; RESP 20; TEMP 37; O2SAT 98
[2024-08-24 13:12] LABS: BASOPHILS % 0.3 % (0.0-2.0); EOSINOPHILS % 6.2 % (0.0-5.0); HEMATOCRIT. 29.6 % (42.0-52.0); HEMOGLOBIN. 9.7 g/dL (14.0-18.0); LYMPHOCYTES % 23.6 % (20.0-50.0); MEAN PLATELET VOLUME 6.8 fl (7.4-10.4); MONOCYTES % 11.1 % (2.0-8.0); NEUTROPHILS % 58.8 % (40.0-76.0); PLATELET 416 x1000/uL (130-400); RED BLOOD CELL COUNT 3.61 mill/uL (4.7-6.1); RED CELL DISTRIBUTION WIDTH 15.8 % (11.6-14.6)
[2024-08-24 16:00] VITALS: BP 134/82; PULSE 99; RESP 18; TEMP 36.7; O2SAT 100
[2024-08-24 20:00] VITALS: BP 102/62; PULSE 104; RESP 19; TEMP 35.7; O2SAT 87
[2024-08-25] VITALS: BP 115/53; PULSE 105; RESP 19; TEMP 35.8; O2SAT 92
[2024-08-25 04:00] VITALS: BP 111/72; PULSE 108; RESP 19; TEMP 36; O2SAT 100
[2024-08-25 08:00] VITALS: BP 113/70; PULSE 101; RESP 19; TEMP 36.4; O2SAT 99
[2024-08-25 12:00] VITALS: BP 99/63; PULSE 100; RESP 18; TEMP 38; O2SAT 99
[2024-08-25 16:00] VITALS: BP 120/69; PULSE 82; RESP 20; TEMP 36.7; O2SAT 99
[2024-08-25 20:00] VITALS: BP 102/40; PULSE 104; RESP 20; TEMP 36.3; O2SAT 96
[2024-08-26] VITALS: BP 97/54; PULSE 109; RESP 20; TEMP 36.6; O2SAT 98
[2024-08-26 04:00] VITALS: BP 94/46; PULSE 106; RESP 20; TEMP 36.6; O2SAT 97
[2024-08-26 08:00] VITALS: BP 120/60; PULSE 115; RESP 17; TEMP 36.2; O2SAT 95
[2024-08-26 12:00] VITALS: BP 104/62; PULSE 111; RESP 17; TEMP 36.3; O2SAT 96
[2024-08-26 16:00] VITALS: BP 90/54; PULSE 112; RESP 17; TEMP 36.6; O2SAT 99
[2024-08-26 20:00] VITALS: BP 105/54; PULSE 108; RESP 17; TEMP 36.4; O2SAT 97
[2024-08-27] VITALS (8 sets, daily range): BP systolic 100–130; BP diastolic 42–80; PULSE 75–111; RESP 16–19; TEMP 36.2–36.7; O2SAT 98
[2024-08-28] VITALS: BP 135/78; PULSE 80; RESP 19; TEMP 37.1; O2SAT 98
[2024-08-28 04:00] VITALS: BP 104/65; PULSE 19; RESP 19; TEMP 36.6; O2SAT 98
[2024-08-28 08:00] VITALS: BP 117/56; PULSE 115; RESP 18; TEMP 36.4; O2SAT 98
[2024-08-28 16:00] VITALS: BP 116/73; PULSE 106; RESP 18; TEMP 36.4; O2SAT 98
[2024-08-28 20:00] VITALS: BP 98/46; PULSE 108; RESP 16; TEMP 36.6; O2SAT 99
[2024-08-29] VITALS: BP 100/54; PULSE 109; RESP 19; TEMP 36.1; O2SAT 97
[2024-08-29 04:00] VITALS: BP 115/60; PULSE 104; RESP 17; TEMP 36.3; O2SAT 97
[2024-08-29 08:00] VITALS: BP 104/48; PULSE 110; RESP 24; TEMP 36.4; O2SAT 100
[2024-08-29 12:00] VITALS: BP 95/49; PULSE 108; RESP 20; TEMP 36.7; O2SAT 95
[2024-08-29 16:00] VITALS: BP 108/57; PULSE 105; RESP 21; TEMP 36.2; O2SAT 97
[2024-08-29 20:00] VITALS: BP 116/61; PULSE 104; RESP 19; TEMP 36.1; O2SAT 91
[2024-08-30] VITALS (7 sets, daily range): BP systolic 99–116; BP diastolic 52–59; PULSE 67–108; RESP 18–19; TEMP 35.3–36.8; O2SAT 91–99
[2024-08-31] VITALS: BP 111/50; PULSE 109; RESP 19; TEMP 36.4; O2SAT 94
[2024-08-31 04:00] VITALS: BP 108/67; PULSE 107; RESP 19; TEMP 35.9; O2SAT 96
[2024-08-31 08:00] VITALS: BP 105/57; PULSE 110; RESP 18; TEMP 36.3; O2SAT 95
[2024-08-31 12:00] VITALS: BP 104/46; PULSE 115; RESP 18; TEMP 36.1; O2SAT 96
[2024-08-31 16:00] VITALS: BP 113/50; PULSE 57; RESP 18; TEMP 35.8; O2SAT 97
[2024-09-01] VITALS: BP 108/53; PULSE 106; RESP 20; TEMP 36.6; O2SAT 96
[2024-09-01 04:00] VITALS: BP 115/65; PULSE 101; RESP 20; TEMP 36.7; O2SAT 99
[2024-09-01 08:00] VITALS: BP 123/48; PULSE 116; RESP 18; TEMP 36.5; O2SAT 97
[2024-09-01 12:00] VITALS: BP 121/46; PULSE 99; RESP 18; TEMP 36.5; O2SAT 98
[2024-09-01 16:00] VITALS: BP 129/42; PULSE 96; RESP 18; TEMP 36.6; O2SAT 98
[2024-09-01 20:00] VITALS: BP 93/43; PULSE 105; RESP 20; TEMP 38.7; O2SAT 96
[2024-09-02] VITALS: BP 101/47; PULSE 103; RESP 20; TEMP 36.5; O2SAT 100
[2024-09-02 04:00] VITALS: BP 99/51; PULSE 104; RESP 19; TEMP 36.6; O2SAT 100
[2024-09-02 08:00] VITALS: BP 94/52; PULSE 110; RESP 17; TEMP 36.5; O2SAT 97
[2024-09-02 12:00] VITALS: BP 90/46; PULSE 107; RESP 17; TEMP 36.6; O2SAT 97
[2024-09-02 16:00] VITALS: BP 96/45; PULSE 96; RESP 18; TEMP 36.6; O2SAT 97
[2024-09-02 20:00] VITALS: BP 111/69; PULSE 102; RESP 20; TEMP 36.4; O2SAT 96
[2024-09-03] VITALS: BP 113/61; PULSE 111; RESP 20; TEMP 36.2; O2SAT 96
[2024-09-03 04:00] VITALS: BP 100/48; PULSE 108; RESP 20; TEMP 36.1; O2SAT 97
[2024-09-03 08:00] VITALS: BP 92/55; PULSE 106; RESP 18; TEMP 36.3; O2SAT 96
[2024-09-03 12:00] VITALS: BP 96/52; PULSE 102; RESP 17; TEMP 36.4; O2SAT 96
[2024-09-03 16:00] VITALS: BP 98/54; PULSE 107; RESP 17; TEMP 36.2; O2SAT 97
[2024-09-03 20:00] VITALS: BP 109/56; PULSE 105; RESP 19; TEMP 36.2; O2SAT 98
[2024-09-04] VITALS: BP 122/58; PULSE 107; RESP 18; TEMP 36.2; O2SAT 98
[2024-09-04 04:00] VITALS: BP 114/44; PULSE 111; RESP 20; TEMP 36.2; O2SAT 98
[2024-09-04 08:00] VITALS: BP 108/55; PULSE 116; RESP 20; TEMP 36.4; O2SAT 97
[2024-09-04] MEDS: SEMAGLUTIDE 1 MG/0.5 ML SQ SCH (09:59)
[2024-09-04 12:00] VITALS: BP 99/54; PULSE 105; RESP 20; TEMP 36.4; O2SAT 96
[2024-09-04 16:00] VITALS: BP 101/54; PULSE 111; RESP 20; TEMP 36.5; O2SAT 97
[2024-09-04 20:00] VITALS: BP 92/44; PULSE 114; RESP 18; TEMP 36.5; O2SAT 95
[2024-09-05] VITALS: BP 109/49; PULSE 107; RESP 18; TEMP 36.6; O2SAT 96
[2024-09-05 04:00] VITALS: BP 96/50; PULSE 115; RESP 18; TEMP 36.3; O2SAT 100
[2024-09-05 08:00] VITALS: BP 90/41; PULSE 108; RESP 22; TEMP 36.8; O2SAT 100
[2024-09-05 12:00] VITALS: BP 100/53; PULSE 108; RESP 18; TEMP 36.4; O2SAT 98
[2024-09-05 20:00] VITALS: BP 134/62; PULSE 83; RESP 18; TEMP 36.6; O2SAT 94
[2024-09-06] VITALS: BP 111/54; PULSE 100; RESP 20; TEMP 36.7; O2SAT 99
[2024-09-06 04:00] VITALS: BP 120/62; PULSE 107; RESP 20; TEMP 36.5; O2SAT 95
[2024-09-06 08:00] VITALS: BP 102/52; PULSE 106; RESP 18; TEMP 36.4; O2SAT 96
[2024-09-06 12:00] VITALS: BP 95/48; PULSE 101; RESP 18; TEMP 36.4; O2SAT 100
[2024-09-06 16:00] VITALS: BP 128/56; PULSE 104; RESP 18; TEMP 37.4; O2SAT 100
[2024-09-06 20:00] VITALS: BP 108/59; PULSE 114; RESP 18; TEMP 36.6; O2SAT 99
[2024-09-07] VITALS: BP 107/58; PULSE 111; RESP 18; TEMP 36.4; O2SAT 99
[2024-09-07 04:00] VITALS: BP 95/45; PULSE 116; RESP 18; TEMP 36.6; O2SAT 95
[2024-09-07 08:00] VITALS: BP 97/51; PULSE 119; RESP 22; TEMP 36.6; O2SAT 97
[2024-09-07 12:00] VITALS: BP 96/52; PULSE 110; RESP 22; TEMP 36.5; O2SAT 98
[2024-09-07 16:00] VITALS: BP 100/55; PULSE 108; RESP 20; TEMP 36.4; O2SAT 97
[2024-09-07 20:00] VITALS: BP 106/56; PULSE 102; RESP 20; TEMP 36.2; O2SAT 96
[2024-09-08] VITALS: BP 98/47; PULSE 106; RESP 20; TEMP 36.1; O2SAT 98
[2024-09-08 08:00] VITALS: BP 105/61; PULSE 113; RESP 20; TEMP 36.4; O2SAT 99
[2024-09-08 12:00] VITALS: BP 106/61; PULSE 112; RESP 20; TEMP 36.6; O2SAT 99
[2024-09-08 16:00] VITALS: BP 107/64; PULSE 104; RESP 20; TEMP 36.4; O2SAT 100
[2024-09-09] VITALS: BP 85/38; PULSE 110; RESP 19; TEMP 36.4; O2SAT 98
[2024-09-09 04:00] VITALS: BP 119/58; PULSE 114; RESP 17; TEMP 36.1; O2SAT 96
[2024-09-09 08:00] VITALS: BP 117/56; PULSE 113; RESP 18; TEMP 36.4; O2SAT 100
[2024-09-09 12:00] VITALS: BP 110/59; PULSE 111; RESP 18; TEMP 37.2; O2SAT 100
[2024-09-09 16:00] VITALS: BP 105/60; PULSE 81; RESP 18; TEMP 37.6; O2SAT 100
[2024-09-09 20:00] VITALS: BP 111/61; PULSE 98; RESP 20; TEMP 36.6; O2SAT 100
[2024-09-10] VITALS: BP 104/54; PULSE 107; RESP 20; TEMP 36.8; O2SAT 98
[2024-09-10 04:00] VITALS: BP 109/60; PULSE 102; RESP 20; TEMP 36.6; O2SAT 96
[2024-09-10 08:00] VITALS: BP 98/53; PULSE 119; RESP 18; TEMP 36.3; O2SAT 99
[2024-09-10] MEDS ORDERED: IPRATROPIUM BROMIDE (0.02%) 0.5MG/2.5ML NEB HHN PRN (10:15)
[2024-09-10 12:00] VITALS: BP 96/56; PULSE 110; RESP 17; TEMP 36.4; O2SAT 98
[2024-09-10 16:00] VITALS: BP 103/58; PULSE 105; RESP 17; TEMP 36.4; O2SAT 98
[2024-09-10 20:00] VITALS: BP 123/68; PULSE 112; RESP 19; TEMP 36.3; O2SAT 98
[2024-09-11] VITALS: BP 125/69; PULSE 106; RESP 18; TEMP 36.6; O2SAT 96
[2024-09-11 04:00] VITALS: BP 107/87; PULSE 107; RESP 20; TEMP 36; O2SAT 96
[2024-09-11 08:00] VITALS: BP 93/48; PULSE 99; RESP 19; TEMP 36.4; O2SAT 100
[2024-09-11 08:27] LABS: BASOPHILS % 0.6 % (0.0-2.0); EOSINOPHILS % 4.8 % (0.0-5.0); HEMATOCRIT. 27.4 % (42.0-52.0); HEMOGLOBIN. 9.2 g/dL (14.0-18.0); LYMPHOCYTES % 33.3 % (20.0-50.0); MEAN PLATELET VOLUME 7.3 fl (7.4-10.4); MONOCYTES % 11.2 % (2.0-8.0); NEUTROPHILS % 50.1 % (40.0-76.0); PLATELET 371 x1000/uL (130-400); RED BLOOD CELL COUNT 3.32 mill/uL (4.7-6.1); RED CELL DISTRIBUTION WIDTH 15.7 % (11.6-14.6)
[2024-09-11 08:50] LABS: CREATININE 0.3 mg/dL (0.6-1.3); UREA NITROGEN BLOOD < 5 mg/dL (9-23)
[2024-09-11 12:00] VITALS: BP 85/39; PULSE 91; RESP 17; TEMP 36.6; O2SAT 21
[2024-09-11] MEDS: POTASSIUM CHLORIDE 20MEQ TABLET SR PO SCH (12:43)
[2024-09-11 15:51] VITALS: BP 103/54; PULSE 109; RESP 17; TEMP 36.7
[2024-09-11 20:00] VITALS: BP 98/52; PULSE 113; RESP 19; TEMP 36.3; O2SAT 96
[2024-09-12] VITALS: BP 103/48; PULSE 113; RESP 20; TEMP 36.1; O2SAT 95
[2024-09-12 04:00] VITALS: BP 101/52; PULSE 106; RESP 19; TEMP 36.2; O2SAT 96
[2024-09-12 08:00] VITALS: BP 144/78; PULSE 114; RESP 20; TEMP 36.2; O2SAT 100
[2024-09-12 12:00] VITALS: BP 92/54; PULSE 101; RESP 20; TEMP 36.6; O2SAT 100
[2024-09-12 16:00] VITALS: BP 109/51; PULSE 113; RESP 20; TEMP 36.6; O2SAT 100
[2024-09-12 20:00] VITALS: BP 111/48; PULSE 97; RESP 18; TEMP 36.2; O2SAT 98
[2024-09-13] VITALS: BP 110/56; PULSE 113; RESP 18; TEMP 36.4; O2SAT 99
[2024-09-13 04:00] VITALS: BP 111/51; PULSE 111; RESP 18; TEMP 36.6; O2SAT 97
[2024-09-13 08:00] VITALS: BP 100/44; PULSE 114; RESP 18; TEMP 36.2; O2SAT 98
[2024-09-13 09:23] LABS: BASOPHILS % 0.4 % (0.0-2.0); EOSINOPHILS % 1.4 % (0.0-5.0); HEMATOCRIT. 30.0 % (42.0-52.0); HEMOGLOBIN. 10.1 g/dL (14.0-18.0); LYMPHOCYTES % 25.7 % (20.0-50.0); MEAN PLATELET VOLUME 7.3 fl (7.4-10.4); MONOCYTES % 10.4 % (2.0-8.0); NEUTROPHILS % 62.1 % (40.0-76.0); PLATELET 401 x1000/uL (130-400); RED BLOOD CELL COUNT 3.64 mill/uL (4.7-6.1); RED CELL DISTRIBUTION WIDTH 16.1 % (11.6-14.6)
[2024-09-13 09:36] LABS: CREATININE 0.3 mg/dL (0.6-1.3)
[2024-09-13 09:37] LABS: UREA NITROGEN BLOOD < 5 mg/dL (9-23)
[2024-09-13 09:39] LABS: PHOSPHORUS 3.4 mg/dL (2.5-4.9)
[2024-09-13 12:00] VITALS: BP 93/44; PULSE 104; RESP 18; TEMP 36.3; O2SAT 97
[2024-09-13 16:00] VITALS: BP 98/46; PULSE 105; RESP 18; TEMP 36.1; O2SAT 96
[2024-09-13] MEDS: MAGNESIUM 2 G PREMIX 50 ML IV NR (16:29)
[2024-09-13] MEDS: MAGNESIUM OXIDE 400MG TABLET PO SCH (17:06)
[2024-09-13 20:00] VITALS: BP 90/50; PULSE 99; RESP 19; TEMP 36.9; O2SAT 99
[2024-09-13] MEDS: ENOXAPARIN 40MG/0.4ML SYR SUBCUT SCH (21:31)
[2024-09-14] VITALS: BP 83/39; PULSE 110; RESP 19; TEMP 36.5; O2SAT 97
[2024-09-14 04:00] VITALS: BP 90/42; PULSE 101; RESP 20; TEMP 36.2; O2SAT 100
[2024-09-14 08:00] VITALS: BP 89/47; PULSE 117; RESP 18; TEMP 36.4; O2SAT 95
[2024-09-14 12:00] VITALS: BP 107/60; PULSE 102; RESP 18; TEMP 36.4; O2SAT 100
[2024-09-14 16:00] VITALS: BP 101/59; PULSE 104; RESP 19; TEMP 36.7; O2SAT 97
[2024-09-14 20:00] VITALS: BP 103/59; PULSE 114; RESP 19; TEMP 36.4; O2SAT 100
[2024-09-15] VITALS: BP 101/60; PULSE 105; RESP 19; TEMP 36.4; O2SAT 100
[2024-09-15 04:00] VITALS: BP 100/55; PULSE 116; RESP 20; TEMP 36.2; O2SAT 99
[2024-09-15 08:00] VITALS: BP 107/47; PULSE 111; RESP 20; TEMP 36.4; O2SAT 100
[2024-09-15 12:00] VITALS: BP 105/55; PULSE 77; RESP 20; TEMP 36.5; O2SAT 100
[2024-09-15 16:00] VITALS: BP 109/56; PULSE 89; RESP 20; TEMP 36.8; O2SAT 100
[2024-09-15 20:00] VITALS: BP 125/65; PULSE 92; RESP 18; TEMP 36.4; O2SAT 99
[2024-09-16] VITALS: BP 109/52; PULSE 114; RESP 18; TEMP 36.3; O2SAT 98
[2024-09-16 04:00] VITALS: BP 117/77; PULSE 104; RESP 18; TEMP 36.1; O2SAT 98
[2024-09-16 08:00] VITALS: BP 91/54; PULSE 107; RESP 17; TEMP 36.4; O2SAT 97
[2024-09-16 12:00] VITALS: BP 90/47; PULSE 105; RESP 17; TEMP 36.3; O2SAT 99
[2024-09-16 16:00] VITALS: BP 95/63; PULSE 104; RESP 17; TEMP 36.4; O2SAT 98
[2024-09-16 20:00] VITALS: BP 112/64; PULSE 111; RESP 20; TEMP 36
[2024-09-17] VITALS: BP 120/55; PULSE 113; RESP 20; TEMP 35.9; O2SAT 97
[2024-09-17 04:00] VITALS: BP 128/82; PULSE 107; RESP 20; TEMP 35.7; O2SAT 97
[2024-09-17 08:00] VITALS: BP 90/45; PULSE 106; RESP 17; TEMP 36.4; O2SAT 98
[2024-09-17 12:00] VITALS: BP 108/57; PULSE 113; RESP 17; TEMP 36.3; O2SAT 98
[2024-09-17 16:52] VITALS: BP 100/53; PULSE 114; RESP 17; TEMP 36.5; O2SAT 99
[2024-09-17 20:00] VITALS: BP 122/51; PULSE 107; RESP 18; TEMP 36.2; O2SAT 98
[2024-09-18] VITALS: BP 141/71; PULSE 71; RESP 19; TEMP 36.2; O2SAT 98
[2024-09-18 04:00] VITALS: BP 130/73; PULSE 102; RESP 18; TEMP 36.3; O2SAT 100
[2024-09-18 08:00] VITALS: BP 92/54; PULSE 116; RESP 17; TEMP 36.5; O2SAT 98
[2024-09-18 12:00] VITALS: BP 105/79; PULSE 99; RESP 17; TEMP 36.4; O2SAT 98
[2024-09-18 16:00] VITALS: BP 115/56; PULSE 103; RESP 16; TEMP 36.5; O2SAT 68
[2024-09-18 20:00] VITALS: BP 121/63; PULSE 117; RESP 20; TEMP 36.2; O2SAT 98
[2024-09-19] VITALS (7 sets, daily range): BP systolic 106–124; BP diastolic 50–66; PULSE 82–118; RESP 19–20; TEMP 36.1–36.6; O2SAT 96–100
[2024-09-20 04:00] VITALS: BP 108/60; PULSE 102; RESP 19; TEMP 36.5; O2SAT 97
[2024-09-20 08:00] VITALS: BP 91/34; PULSE 77; RESP 19; TEMP 36.6; O2SAT 97
[2024-09-20 12:00] VITALS: BP 96/52; PULSE 103; RESP 20; TEMP 36.6; O2SAT 96
[2024-09-20 16:00] VITALS: BP 106/52; PULSE 65; RESP 20; TEMP 36.3; O2SAT 100
[2024-09-21] VITALS (7 sets, daily range): BP systolic 74–117; BP diastolic 29–63; PULSE 102–117; RESP 18–20; TEMP 36.2–37.1; O2SAT 99–100
[2024-09-22] VITALS: BP 126/62; PULSE 100; RESP 19; TEMP 36.7; O2SAT 98
[2024-09-22 04:00] VITALS: BP 125/65; PULSE 100; RESP 19; TEMP 36.7; O2SAT 100
[2024-09-22 08:00] VITALS: BP 73/31; PULSE 115; RESP 18; TEMP 36.3; O2SAT 98
[2024-09-22] MEDS: MAGNESIUM 2 G PREMIX 50 ML IV NR (11:15)
[2024-09-22 12:00] VITALS: BP 104/48; PULSE 104; RESP 18; TEMP 36.4; O2SAT 98
[2024-09-22 16:00] VITALS: BP 121/62; PULSE 72; RESP 18; TEMP 36.3; O2SAT 98
[2024-09-22 20:00] VITALS: BP 107/56; PULSE 114; RESP 18; TEMP 37.3; O2SAT 95
[2024-09-23] VITALS: BP 99/52; PULSE 119; RESP 18; TEMP 37.4; O2SAT 98
[2024-09-23 04:00] VITALS: BP 102/53; PULSE 119; RESP 18; TEMP 36.9; O2SAT 100
[2024-09-23 08:00] VITALS: BP 104/46; PULSE 113; RESP 18; TEMP 36.6; O2SAT 95
[2024-09-23 12:00] VITALS: BP 102/48; PULSE 108; RESP 17; TEMP 36.5; O2SAT 96
[2024-09-23 16:00] VITALS: BP 108/47; PULSE 96; RESP 17; TEMP 37.2; O2SAT 97
[2024-09-23 20:00] VITALS: BP 98/52; PULSE 108; RESP 18; TEMP 36.3; O2SAT 99
[2024-09-24] VITALS: BP 95/46; PULSE 116; RESP 17; TEMP 36.9; O2SAT 99
[2024-09-24 04:00] VITALS: BP 100/51; PULSE 75; RESP 18; TEMP 37; O2SAT 98
[2024-09-24 08:00] VITALS: BP 102/49; PULSE 105; RESP 21; TEMP 36.7; O2SAT 97
[2024-09-24 12:00] VITALS: BP 98/59; PULSE 106; RESP 22; TEMP 36.7; O2SAT 97
[2024-09-24 16:00] VITALS: BP 88/46; PULSE 106; RESP 22; TEMP 36.9; O2SAT 98
[2024-09-24 20:00] VITALS: BP 103/54; PULSE 103; RESP 20; TEMP 36.4; O2SAT 97
[2024-09-25] VITALS: BP 97/46; PULSE 109; RESP 18; TEMP 36.7; O2SAT 95
[2024-09-25] MEDS ORDERED: HYDROCODONE/ACETAMINOPHEN 5/325MG TABLET PO PRN (02:30)
[2024-09-25] MEDS ORDERED: NALOXONE HCL 0.4MG/ML VIAL IV PRN (02:45)
[2024-09-25 04:00] VITALS: BP 101/55; PULSE 97; RESP 20; TEMP 36.7; O2SAT 96
[2024-09-25 08:00] VITALS: BP 94/46; PULSE 103; RESP 17; TEMP 36.4; O2SAT 98
[2024-09-25] MEDS: MIDODRINE HCL 5MG TABLET PO SCH (08:36)
[2024-09-25] MEDS: SEMAGLUTIDE SQ SCH (09:22)
[2024-09-25 12:00] VITALS: BP 90/40; PULSE 108; RESP 7; TEMP 36.6; O2SAT 98
[2024-09-25 16:00] VITALS: BP 85/45; PULSE 104; RESP 17; TEMP 36.6; O2SAT 98
[2024-09-25 20:00] VITALS: BP 100/49; PULSE 100; RESP 18; TEMP 36.6; O2SAT 98
[2024-09-26] VITALS: BP 98/47; PULSE 90; RESP 18; TEMP 36.7; O2SAT 96
[2024-09-26 04:00] VITALS: BP 104/51; PULSE 106; RESP 18; TEMP 36.4; O2SAT 96
[2024-09-26 08:00] VITALS: BP 106/57; PULSE 90; RESP 18; TEMP 36.7; O2SAT 98
[2024-09-26] MEDS: ENOXAPARIN 40MG/0.4ML SYR SUBCUT SCH (09:11)
[2024-09-26 12:00] VITALS: BP 102/59; RESP 18; TEMP 36.7; O2SAT 98
[2024-09-26 16:00] VITALS: BP 103/52; PULSE 108; RESP 18; TEMP 36.7; O2SAT 98
[2024-09-26 20:00] VITALS: BP 118/58; PULSE 108; RESP 19; TEMP 36.6; O2SAT 96
[2024-09-27] VITALS: BP 120/60; PULSE 101; RESP 19; TEMP 36.6; O2SAT 98
[2024-09-27 08:00] VITALS: BP 107/53; PULSE 106; RESP 22; TEMP 36.3; O2SAT 100
[2024-09-27 12:00] VITALS: BP 111/64; PULSE 100; RESP 20; TEMP 36.7; O2SAT 96
[2024-09-27 16:00] VITALS: BP 84/44; PULSE 102; RESP 20; TEMP 36.3; O2SAT 100
[2024-09-27 20:00] VITALS: BP 113/49; PULSE 101; RESP 20; TEMP 36.7; O2SAT 94
[2024-09-27 20:04] LABS: BASOPHILS % 0.3 % (0.0-2.0); EOSINOPHILS % 2.5 % (0.0-5.0); HEMATOCRIT. 28.6 % (42.0-52.0); HEMOGLOBIN. 9.6 g/dL (14.0-18.0); LYMPHOCYTES % 29.0 % (20.0-50.0); MEAN PLATELET VOLUME 7.0 fl (7.4-10.4); MONOCYTES % 9.8 % (2.0-8.0); NEUTROPHILS % 58.4 % (40.0-76.0); PLATELET 323 x1000/uL (130-400); RED BLOOD CELL COUNT 3.46 mill/uL (4.7-6.1); RED CELL DISTRIBUTION WIDTH 18.0 % (11.6-14.6)
[2024-09-27 20:16] LABS: UREA NITROGEN BLOOD < 5 mg/dL (9-23)
[2024-09-27 20:23] LABS: CREATININE 0.4 mg/dL (0.6-1.3)
[2024-09-28] VITALS: BP 103/43; PULSE 105; RESP 20; TEMP 36.8; O2SAT 99
[2024-09-28 04:00] VITALS: BP 92/50; PULSE 109; RESP 20; TEMP 36.3; O2SAT 98
[2024-09-28 08:00] VITALS: BP 94/40; PULSE 105; RESP 20; TEMP 35.9; O2SAT 97
[2024-09-28 12:00] VITALS: BP 100/60; PULSE 108; RESP 22; TEMP 35.6; O2SAT 98
[2024-09-28] MEDS: POTASSIUM CHLORIDE 20MEQ TABLET SR PO SCH (15:15)
[2024-09-28 16:00] VITALS: BP 104/50; PULSE 109; RESP 22; TEMP 37; O2SAT 95
[2024-09-28 20:00] VITALS: BP 95/48; PULSE 102; RESP 18; TEMP 37.5; O2SAT 99
[2024-09-29] VITALS: BP 95/42; PULSE 105; RESP 18; TEMP 37; O2SAT 98
[2024-09-29 04:00] VITALS: BP 109/45; PULSE 83; RESP 18; TEMP 36.9; O2SAT 98
[2024-09-29 08:00] VITALS: BP 102/69; PULSE 65; RESP 17; TEMP 36.5; O2SAT 100
[2024-09-29 12:00] VITALS: BP 99/42; PULSE 102; RESP 18; TEMP 36.6; O2SAT 98
[2024-09-29 16:00] VITALS: BP 88/47; PULSE 98; RESP 18; TEMP 36.7; O2SAT 99
[2024-09-29 17:16] LABS: CREATININE 0.4 mg/dL (0.6-1.3); UREA NITROGEN BLOOD 5 mg/dL (9-23)
[2024-09-29 20:00] VITALS: BP 99/49; PULSE 111; RESP 18; TEMP 36.6; O2SAT 99
[2024-09-30] VITALS: BP 104/46; PULSE 120; RESP 18; TEMP 37.7; O2SAT 96
[2024-09-30 04:00] VITALS: BP 107/50; PULSE 117; RESP 18; TEMP 37.1; O2SAT 99
[2024-09-30 08:00] VITALS: BP 88/45; PULSE 100; RESP 20; TEMP 36.6; O2SAT 99
[2024-09-30 12:00] VITALS: BP 105/47; PULSE 104; RESP 20; TEMP 36.7; O2SAT 99
[2024-09-30 16:00] VITALS: BP 96/38; PULSE 101; RESP 20; TEMP 36.6; O2SAT 99
[2024-09-30] MEDS: ONDANSETRON HCL 4MG TABLET PO PRN (20:35)
[2024-09-30 23:25] VITALS: BP 99/45; PULSE 102; RESP 19; TEMP 36.1; O2SAT 99
[2024-10-01 04:00] VITALS: BP 98/49; PULSE 101; RESP 18; TEMP 36.2; O2SAT 99
[2024-10-01 08:00] VITALS: BP 90/60; PULSE 106; RESP 17; TEMP 36.4; O2SAT 98
[2024-10-01 12:00] VITALS: BP 96/64; PULSE 103; RESP 17; TEMP 36.4; O2SAT 98
[2024-10-01 16:00] VITALS: BP 90/60; PULSE 106; RESP 16; TEMP 36.4; O2SAT 17
[2024-10-01 20:00] VITALS: BP 106/44; PULSE 101; RESP 19; TEMP 36.1; O2SAT 100
[2024-10-02] VITALS: BP 105/45; PULSE 102; RESP 19; TEMP 35.8; O2SAT 100
[2024-10-02 04:00] VITALS: BP 104/47; PULSE 19; RESP 19; TEMP 36.1; O2SAT 100
[2024-10-02 08:00] VITALS: BP 80/40; PULSE 115; RESP 17; TEMP 36.5; O2SAT 98
[2024-10-02 12:00] VITALS: BP 93/40; PULSE 104; RESP 17; TEMP 36.4; O2SAT 98
[2024-10-02] MEDS: SODIUM CHLORIDE 0.9% 500 ML IV ONE (12:30)
[2024-10-02] MEDS: MIDODRINE HCL 5MG TABLET PO SCH (14:17)
[2024-10-02 16:00] VITALS: BP 80/51; PULSE 102; RESP 16; TEMP 36.4; O2SAT 98
[2024-10-02 20:00] VITALS: BP 90/37; PULSE 103; RESP 19; TEMP 36; O2SAT 100
[2024-10-03] VITALS (7 sets, daily range): BP systolic 78–104; BP diastolic 33–72; PULSE 80–111; RESP 17–19; TEMP 36.2–38; O2SAT 96–98
[2024-10-03] MEDS: MIDODRINE HCL 5MG TABLET PO SCH (13:04)
[2024-10-03] MEDS: SODIUM CHLORIDE 0.9% 500 ML IV NR (13:31)
[2024-10-03] MEDS: PIPERACILLIN/TAZO 3.375G/50ML 50 ML IV SCH (22:00)
[2024-10-04] VITALS: BP 74/29; PULSE 90; RESP 18; TEMP 36.4; O2SAT 96
[2024-10-04 04:00] VITALS: BP 76/36; PULSE 102; RESP 18; TEMP 36.6; O2SAT 99
[2024-10-04] MEDS: MIDODRINE HCL 5MG TABLET PO PRN (04:16)
[2024-10-04 06:43] LABS: BASOPHILS % 0.2 % (0.0-2.0); EOSINOPHILS % 0.6 % (0.0-5.0); HEMATOCRIT. 24.8 % (42.0-52.0); HEMOGLOBIN. 8.4 g/dL (14.0-18.0); LYMPHOCYTES % 24.1 % (20.0-50.0); MEAN PLATELET VOLUME 7.4 fl (7.4-10.4); MONOCYTES % 7.8 % (2.0-8.0); NEUTROPHILS % 67.3 % (40.0-76.0); PLATELET 317 x1000/uL (130-400); RED BLOOD CELL COUNT 2.95 mill/uL (4.7-6.1); RED CELL DISTRIBUTION WIDTH 17.8 % (11.6-14.6)
[2024-10-04 07:04] LABS: CREATININE 0.8 mg/dL (0.6-1.3)
[2024-10-04 07:05] LABS: UREA NITROGEN BLOOD 13 mg/dL (9-23)
[2024-10-04 07:07] LABS: PHOSPHORUS 2.9 mg/dL (2.5-4.9)
[2024-10-04 08:00] VITALS: BP 74/31; PULSE 100; RESP 20; TEMP 36.5; O2SAT 100
[2024-10-04 12:00] VITALS: BP 80/31; PULSE 98; RESP 20; TEMP 36.7; O2SAT 100
[2024-10-04] MEDS: POTASSIUM CHLORIDE 20MEQ TABLET SR PO NR ×2 (12:44→13:15)
[2024-10-04] MEDS ORDERED: LIDOCAINE HCL 1% 10 MG/ML 10ML VIAL ONE (13:16)
[2024-10-04 20:00] VITALS: BP 69/89; PULSE 86; RESP 18; TEMP 36.4; O2SAT 98
[2024-10-05] VITALS (20 sets, daily range): BP systolic 58–97; BP diastolic 32–62; PULSE 75–109; RESP 15–36; TEMP 36.4–37.1; O2SAT 93–100
[2024-10-05] MEDS: SODIUM CHLORIDE 0.9% 1,000 ML IV SCH (02:56)
[2024-10-05] MEDS: PIPERACILLIN/TAZO 3.375G/50ML 50 ML IV SCH (07:41)
[2024-10-05] MEDS ORDERED: LEVOFLOXACIN 250MG TABLET PO SCH (11:00)
[2024-10-05] MEDS: ONDANSETRON HCL 4MG/2ML INJ IV PRN (13:13)
[2024-10-05 16:17] LABS: BASOPHILS % 0.2 % (0.0-2.0); EOSINOPHILS % 0.2 % (0.0-5.0); HEMATOCRIT. 21.8 % (42.0-52.0); HEMOGLOBIN. 7.2 g/dL (14.0-18.0); LYMPHOCYTES % 20.1 % (20.0-50.0); MEAN PLATELET VOLUME 7.1 fl (7.4-10.4); MONOCYTES % 8.1 % (2.0-8.0); NEUTROPHILS % 71.4 % (40.0-76.0); PLATELET 292 x1000/uL (130-400); RED BLOOD CELL COUNT 2.56 mill/uL (4.7-6.1); RED CELL DISTRIBUTION WIDTH 17.8 % (11.6-14.6)
[2024-10-05 16:29] LABS: UREA NITROGEN BLOOD 22.0 mg/dL (9-23)
[2024-10-05 16:37] LABS: CREATININE 1.9 mg/dL (0.6-1.3)
[2024-10-05] MEDS: MIDODRINE HCL 5MG TABLET PO SCH (21:11)
[2024-10-06] VITALS (107 sets, daily range): BP systolic 33–127; BP diastolic 15–105; PULSE 73–141; RESP 11–46; TEMP 37.1–37.2; O2SAT 68–100
[2024-10-06] MEDS ORDERED: NALOXONE HCL 0.4MG/ML VIAL IV PRN (01:15)
[2024-10-06 06:52] LABS: BASOPHILS % 0.2 % (0.0-2.0); EOSINOPHILS % 0.8 % (0.0-5.0); HEMATOCRIT. 24.8 % (42.0-52.0); HEMOGLOBIN. 7.9 g/dL (14.0-18.0); LYMPHOCYTES % 11.5 % (20.0-50.0); MEAN PLATELET VOLUME 7.8 fl (7.4-10.4); MONOCYTES % 7.5 % (2.0-8.0); NEUTROPHILS % 80.0 % (40.0-76.0); PLATELET 313 x1000/uL (130-400); RED BLOOD CELL COUNT 2.80 mill/uL (4.7-6.1); RED CELL DISTRIBUTION WIDTH 18.3 % (11.6-14.6)
[2024-10-06 07:49] LABS: CREATININE 2.3 mg/dL (0.6-1.3); UREA NITROGEN BLOOD 26 mg/dL (9-23)
[2024-10-06 07:51] LABS: PHOSPHORUS 3.4 mg/dL (2.5-4.9)
[2024-10-06] MEDS: HYDROCODONE/ACETAMINOPHEN 10/325MG TABLET PO PRN (10:23)
[2024-10-06] MEDS: MORPHINE SULFATE 2 MG/ML INJ (NOT FOR IM USE) IV NR (11:00)
[2024-10-06 16:28] LABS: BG BASE EXCESS -13.8 mmol/L (-2.0-3.0); BG CARBOXYHEMOGLOBIN 0.2 % (0.5-1.5); BG DEOXYHEMOGLOBIN 5.9 % (0.0-5.0); BG FRACTION INSPIRED OXYGEN 21; BG HCO3 ACT 11.1 mmol/L (21.0-28.0); BG METHEMOGLOBIN 0.1 % (0.5-1.5); BG OXYGEN SATURATION 94.1 % (94.0-98.0); BG OXYHEMOGLOBIN 93.8 % (94.0-98.0); BG PCO2 22.9 mmHg (35.0-48.0); BG PH 7.303 (7.350-7.450); BG PO2 82.1 mmHg (83.0-108.0); BG SAMPLE SITE LEFT RADIAL; BG TOTAL HEMOGLOBIN 8.3 g/dL (13.5-17.5); BG VENT MODE ROOM AIR
[2024-10-06] MEDS: SODIUM BICARBONATE 8.4% 50MEQ/50ML SYR IV NR (18:05)
[2024-10-06] MEDS: SODIUM CHLORIDE 0.9% 1,000 ML IV ONE ×3 (18:06→21:16)
[2024-10-06] MEDS ORDERED: IPRATROPIUM/ALBUTEROL 0.5-3(2.5)MG/3ML NEB HHN PRN (18:45)
[2024-10-06] MEDS: LORAZEPAM 2MG/ML UD SYRINGE IV PRN (19:43)
[2024-10-06] MEDS ORDERED: DEXMEDETOMIDINE 100 ML IV PRN (20:15)
[2024-10-06] MEDS: LORAZEPAM 2MG/ML UD SYRINGE IV SCH (20:28)
[2024-10-06] MEDS ORDERED: PHENYLEPHRINE 50MG/250ML PMX 250 ML IV PRN (21:00)
[2024-10-06 21:35] LABS: BG BASE EXCESS -18.6 mmol/L (-2.0-3.0); BG CARBOXYHEMOGLOBIN 0.3 % (0.5-1.5); BG DEOXYHEMOGLOBIN 2.4 % (0.0-5.0); BG FRACTION INSPIRED OXYGEN 100; BG HCO3 ACT 8.6 mmol/L (21.0-28.0); BG METHEMOGLOBIN 0.1 % (0.5-1.5); BG OXYGEN SATURATION 97.6 % (94.0-98.0); BG OXYHEMOGLOBIN 97.2 % (94.0-98.0); BG PCO2 25.0 mmHg (35.0-48.0); BG PEEP (cmH2O) 5.0 cmH2O; BG PH 7.155 (7.350-7.450); BG PO2 128.2 mmHg (83.0-108.0); BG SAMPLE SITE RIGHT RADIAL; BG TOTAL HEMOGLOBIN 9.6 g/dL (13.5-17.5); BG TOTAL RESPIRATORY RATE 33 b/min; BG VENT MODE VENT - P/C; BG VENT RATE 16.0 set
[2024-10-06] MEDS: FENTANYL CITRATE/PF 50MCG/ML 2ML VIAL IV SCH (22:09)
[2024-10-06] MEDS: DEXMEDETOMIDINE 100 ML IV PRN (22:10)
[2024-10-06] MEDS: SODIUM BICARBONATE 8.4% 50MEQ/50ML SYR IV SCH ×2 (22:10→23:23)
[2024-10-06] MEDS: NOREPINEPHRINE 32 MG in DEXT 5% WATER 218 ML IV PRN (22:11)
[2024-10-06] MEDS: HYDROMORPHONE HCL/PF 2MG/ML INJ IV PRN (23:23)
[2024-10-06] MEDS ORDERED: PHENYLEPHRINE 100 MG in DEXT 5% WATER 240 ML IV PRN (23:30)
[2024-10-07] VITALS (13 sets, daily range): BP systolic 39–114; BP diastolic 22–82; PULSE 86–134; RESP 17–36; O2SAT 93–100
[2024-10-07] MEDS: PHENYLEPHRINE 100 MG in DEXT 5% WATER 240 ML IV PRN (00:20)
[2024-10-07] MEDS: SODIUM BICARBONATE 100 MEQ in DEXTROSE 5% WATER 900 ML IV SCH (00:35)
[2024-10-07 00:38] LABS: INR 1.7
[2024-10-07 00:39] LABS: CREATININE 2.8 mg/dL (0.6-1.3)
[2024-10-07 00:40] LABS: UREA NITROGEN BLOOD 33 mg/dL (9-23)
[2024-10-07 00:41] LABS: PHOSPHORUS 6.3 mg/dL (2.5-4.9)
[2024-10-07 00:42] LABS: BILIRUBIN TOTAL 1.0 mg/dL (0.1-1.0)
[2024-10-07 00:44] LABS: BASOPHILS % 0.1 % (0.0-2.0); EOSINOPHILS % 1.7 % (0.0-5.0); HEMATOCRIT. 25.1 % (42.0-52.0); HEMOGLOBIN. 7.8 g/dL (14.0-18.0); LYMPHOCYTES % 10.6 % (20.0-50.0); MEAN PLATELET VOLUME 7.7 fl (7.4-10.4); MONOCYTES % 5.6 % (2.0-8.0); NEUTROPHILS % 82.0 % (40.0-76.0); PLATELET 186 x1000/uL (130-400); RED BLOOD CELL COUNT 2.73 mill/uL (4.7-6.1); RED CELL DISTRIBUTION WIDTH 18.3 % (11.6-14.6)
[2024-10-07 00:45] LABS: FOLIC ACID (FOLATE) SERUM 6.79 ng/mL (>5.38)
[2024-10-07 00:53] LABS: ASPARTATE AMINOTRANSFERASE 1334 IU/L (<34)
[2024-10-07 00:59] LABS: VITAMIN B12 SERUM > 2000 pg/mL (211-911)
[2024-10-07 01:00] LABS: PROTEIN TOTAL 5.4 g/dL (6.0-8.3)
[2024-10-07] MEDS ORDERED: SUCRALFATE 1G TABLET PO SCH (07:50)
[2024-10-07] MEDS ORDERED: PHYTONADIONE 10MG/ML INJ SUBCUT SCH (09:00)
[2024-10-07] MEDS ORDERED: PANTOPRAZOLE SODIUM 40 MG/VIAL IV SCH (09:00)
== END 2024-10-07 02:39 | DRG 5 ==
LOC: ER 12:04 → EDBEDREQSVC 16:56 → EDBEDREQTM 16:56 → CVICU 19:22 → EDBEDREQSVC 19:35 → EDBEDREQTM 19:35 → 5EST 03-25 01:06 → UNDODISIN 03-25 02:26 → MICUNO 04-01 19:20 → 5EST 05-10 17:20 → 6WST 07-03 01:02 → 7EST 07-07 22:10 → 5EST 10-05 14:01 → CVICU 10-05 21:39
PROVIDERS: ADMIT Internal Medicine; ATTEND Internal Medicine
PROC: 0BH17EZ Insertion of Endotracheal Airway into Trachea, Via Natural or Artificial Opening (ICD-10-PCS; principal; 2024-03-23)
PROC: 5A1955Z Respiratory Ventilation, Greater than 96 Consecutive Hours (ICD-10-PCS; 2024-03-23)
PROC: 05HY33Z Insertion of Infusion Device into Upper Vein, Percutaneous Approach (ICD-10-PCS; 2024-03-24)
PROC: B54MZZA Ultrasonography of Right Upper Extremity Veins, Guidance (ICD-10-PCS; 2024-03-24)
PROC: 02HV33Z Insertion of Infusion Device into Superior Vena Cava, Percutaneous Approach (ICD-10-PCS; 2024-03-26)
PROC: B548ZZA Ultrasonography of Superior Vena Cava, Guidance (ICD-10-PCS; 2024-03-26)
PROC: 0BJ08ZZ Inspection of Tracheobronchial Tree, Via Natural or Artificial Opening Endoscopic (ICD-10-PCS; 2024-04-07)
PROC: 0B110F4 Bypass Trachea to Cutaneous with Tracheostomy Device, Open Approach (ICD-10-PCS; 2024-04-07)
PROC: 30233N1 Transfusion of Nonautologous Red Blood Cells into Peripheral Vein, Percutaneous Approach (ICD-10-PCS; 2024-04-26)
PROC: 05HY33Z Insertion of Infusion Device into Upper Vein, Percutaneous Approach (ICD-10-PCS; 2024-04-27)
PROC: B54MZZA Ultrasonography of Right Upper Extremity Veins, Guidance (ICD-10-PCS; 2024-04-27)
PROC: 03HY32Z Insertion of Monitoring Device into Upper Artery, Percutaneous Approach (ICD-10-PCS; 2024-04-28)
PROC: 05H533Z Insertion of Infusion Device into Right Subclavian Vein, Percutaneous Approach (ICD-10-PCS; 2024-06-03)
PROC: B546ZZA Ultrasonography of Right Subclavian Vein, Guidance (ICD-10-PCS; 2024-06-03)
PROC: B54MZZA Ultrasonography of Right Upper Extremity Veins, Guidance (ICD-10-PCS; 2024-06-25)
PROC: 05HY33Z Insertion of Infusion Device into Upper Vein, Percutaneous Approach (ICD-10-PCS; 2024-06-25)
PROC: 05HY33Z Insertion of Infusion Device into Upper Vein, Percutaneous Approach (ICD-10-PCS; 2024-07-19)
PROC: B54MZZA Ultrasonography of Right Upper Extremity Veins, Guidance (ICD-10-PCS; 2024-07-19)
PROC: 05HY33Z Insertion of Infusion Device into Upper Vein, Percutaneous Approach (ICD-10-PCS; 2024-10-04)
PROC: B54MZZA Ultrasonography of Right Upper Extremity Veins, Guidance (ICD-10-PCS; 2024-10-04)
PROC: 5A12012 Performance of Cardiac Output, Single, Manual (ICD-10-PCS; 2024-10-07)
DX: A41.9 Sepsis, unspecified organism (principal); N17.0 Acute kidney failure with tubular necrosis; R57.0 Cardiogenic shock; J69.0 Pneumonitis due to inhalation of food and vomit; I50.33 Acute on chronic diastolic (congestive) heart failure; E83.39 Other disorders of phosphorus metabolism; D63.8 Anemia in other chronic diseases classified elsewhere; J15.69 Pneumonia due to other Gram-negative bacteria; I27.20 Pulmonary hypertension, unspecified; Z20.822 Contact with and (suspected) exposure to COVID-19; E66.2 Morbid (severe) obesity with alveolar hypoventilation; E87.0 Hyperosmolality and hypernatremia; E87.20 Acidosis, unspecified; J96.01 Acute respiratory failure with hypoxia; E87.4 Mixed disorder of acid-base balance; D50.9 Iron deficiency anemia, unspecified; J96.02 Acute respiratory failure with hypercapnia; Z68.45 Body mass index [BMI] 70 or greater, adult; N50.89 Other specified disorders of the male genital organs; L73.2 Hidradenitis suppurativa; E87.6 Hypokalemia; K76.0 Fatty (change of) liver, not elsewhere classified; K80.20 Calculus of gallbladder without cholecystitis without obstruction; E87.1 Hypo-osmolality and hyponatremia; K59.00 Constipation, unspecified; R04.0 Epistaxis; Z16.13 Resistance to carbapenem; B35.1 Tinea unguium; D75.839 Thrombocytosis, unspecified; E83.42 Hypomagnesemia; E11.65 Type 2 diabetes mellitus with hyperglycemia; S70.212A Abrasion, left hip, initial encounter; X58.XXXA Exposure to other specified factors, initial encounter; N39.0 Urinary tract infection, site not specified; F32.A Depression, unspecified; F41.9 Anxiety disorder, unspecified; B96.83 Acinetobacter baumannii as the cause of diseases classified elsewhere; M79.674 Pain in right toe(s); M79.675 Pain in left toe(s); R16.0 Hepatomegaly, not elsewhere classified; L98.8 Other specified disorders of the skin and subcutaneous tissue; L98.498 Non-pressure chronic ulcer of skin of other sites with other specified severity; S31.000A Unspecified open wound of lower back and pelvis without penetration into retroperitoneum, initial encounter; Z74.01 Bed confinement status; Y93.89 Activity, other specified; Y92.89 Other specified places as the place of occurrence of the external cause; Y99.8 Other external cause status; Z85.49 Personal history of malignant neoplasm of other male genital organs
CPT/HCPCS: 31500; 31720; 36415; 36573; 36600; 71045; 73060; 73070; 73560; 76604; 76700; 76770; 76856; 76870; 78580; 80048; 80051; 80053; 80076; 80202; 81003; 82040; 82375; 82550; 82607; 82728; 82746; 82805; 82962; 83036; 83540; 83550; 83605; 83735; 83880; 83930; 83935; 84100; 84132; 84145; 84295; 84300; 84478; 84484; 85018; 85025; 85027; 85044; 85379; 85651; 86850; 86900; 86920; 87070; 87077; 87106; 87186; 87426; 87804; 92610; 93005; 93306; 93970; 93971; 93976; 94002; 94003; 94070; 94640; 94660; 94664; 94760; 97110; 97112; 97162; 97164; 97166; 97530; 97535; 98960; 99291; A4606; A6261; C1725; C1769; C1887; C1892; J0295; J0360; J0456; J0692; J0696; J0770; J1171; J1200; J1308; J1650; J1815; J1938; J1940; J2003; J2004; J2020; J2060; J2185; J2248; J2250; J2270; J2371; J2405; J2470; J2543; J2597; J2704; J2765; J3010; J3370; J3475; J3480; J3490; J7030; J7040; J7050; J7060; J7070; J7608; J7626; P9016; Q0162; Q0163; Q9957; Q9968; A5200; J0131